=== PATIENT | male | born 1965 | race Caucasian/White ===

== ENCOUNTER 2023-12-20 19:45 | Inpatient (IN) | payer MEDICAID, OTHER ==
[~2023-12-20] VITALS: Ht 174 cm; Wt 71.0 kg
[2023-12-20 20:15] VITALS: PULSE 103; RESP 17; O2SAT 95
--- NOTE | 2023-12-20 20:18 | ED.PDOC ---
Altered Mental Status HPI Comments 58-year-old male who came to ER via EMS for altered level of consciousness. Per EMS, patient is homeless and was picked up station, with an initial call for abdominal pain. As paramedics came, patient complaining of abdominal pain, and confided that he stuck a piece of stick up his ass with a condom inserted. States he did it for pleasure. On the way to the ER, patient started acting confused and disoriented, started talking gibberish. No further information could be taken from him at this time. Chief Complaint: ALOC Time Seen by MD: 20:17 Reviewed Notes: Nurses Notes Allergies: Coded Allergies: NO KNOWN ALLERGIES (Unverified , 12/21/23) Information Source: Patient Mode of Arrival: EMS Severity: Unable to Care for Self Timing: Hours Duration: Since onset Prehospital treatment: None Quality: Decreased Alertness, Change in Behavior, Confusion Past Medical History PAST MEDICAL HISTORY: Pt Confused Surgical History: Pt Confused Family History Family History: Pt Confused Social History Smoker: Pt Confused Alcohol: Pt Confused Drugs: Pt Confused Lives In: Pt Confused Unable to Obtain due to: Altered Mental Status Physical Exam General Appearance: No Apparent Distress, Normal HEENT: Normal ENT Inspection, Pharynx Normal, TMs Normal Neck: Full Range of Motion, Non-Tender, Normal, Normal Inspection Respiratory: Chest Non-Tender, Lungs Clear, No Accessory Muscle Use, No Respiratory Distress, Normal Breath Sounds Cardiovascular: No Edema, No JVD, No Murmur, No Gallop, Normal Peripheral Pulses, Regular Rate/Rhythm Breast Exam: Deferred Gastrointestinal: No Organomegaly, Non Tender, No Pulsatile Mass, Normal Bowel Sounds, Soft Genitalia: Deferred Pelvic: Deferred Rectal: Deferred Extremities: No calf tenderness, Normal capillary refill, Normal inspection, Normal range of motion, Non-tender, No pedal edema Musculoskeletal : Apperance: Normal Neurologic: Alert, coconut cooker II-XII nml as Tested, No Motor Deficits, Normal Affect, Normal Mood, No Sensory Deficits Cerebellar Function: Normal Reflexes: Normal Skin: Dry, Normal Color, Warm Lymphatic: No Adenopathy Was a procedure done? Was a procedure done?: No Differential Diagnosis (ALOC) Differential Diagnosis: Encephalopathy, Drug Overdose, ETOH Intoxication X-Ray, Labs, Meds, VS Vital Signs Date Time Temp Pulse Resp B/P (MAP) Pulse Ox O2 Delivery O2 Flow Rate FiO2 12/21/23 01:00 87 18 133/90 (104) 96 12/20/23 23:00 97 12 139/95 (110) 96 12/20/23 21:00 112 10 147/91 (109) 93 12/20/23 20:15 97.9 103 17 143/92 (109) 95 97.9 12/20/23 20:15 103 17 95 Room Air* 0 21 12/20/23 20:01 97.9 103 18 149/96 (113) 98 12/20/23 19:46 113 Lab Test 12/21/23 00:10 12/20/23 23:10 12/20/23 22:37 Range/Units Troponin I High Sensitivity 10 10 </=54 ng/L White Blood Count 6.4 4.4-10.8 10^3/uL Red Blood Count 4.28 L 4.5-5.90 10^6/uL Hemoglobin 13.3 L 13.5-17.5 g/dL Hematocrit 38.5 L 41.0-53.0 % Mean Corpuscular Volume 89.9 80.0-100.0 fL Mean Corpuscular Hemoglobin 31.1 28.0-32.0 pg Mean Corpuscular Hemoglobin Concent 34.6 32.0-36.0 g/dL Red Cell Distribution Width 14.5 H 11.8-14.3 % Platelet Count 297 140-450 10^3/uL Mean Platelet Volume 7.4 6.9-10.8 fL Neutrophils (%) (Auto) 66.7 37.0-80.0 % Lymphocytes (%) (Auto) 20.0 10.0-50.0 % Monocytes (%) (Auto) 10.8 0.0-12.0 % Eosinophils (%) (Auto) 1.5 0.0-7.0 % Basophils (%) (Auto) 1.0 0.0-2.0 % Neutrophils # (Auto) 4.2 1.6-8.6 10 ^3/uL Lymphocytes # (Auto) 1.3 0.4-5.4 10 ^3/uL Monocytes # (Auto) 0.7 0-1.3 10 ^3/uL Eosinophils # (Auto) 0.1 0-0.8 10 ^3/uL Basophils # (Auto) 0.1 0-0.2 10 ^3/uL Nucleated Red Blood Cells 0.1 % Sodium Level 142 136-145 mmol/L Potassium Level 3.1 L 3.5-5.1 mmol/L Chloride Level 106 98-107 mmol/L Carbon Dioxide Level 31 20-31 mmol/L Anion Gap 5 5-15 Blood Urea Nitrogen 8 L 9-23 mg/dL Creatinine 0.90 0.700-1.30 mg/dL Glomerular Filtration Rate Calc 100 >90 mL/min BUN/Creatinine Ratio 8.9 L 10.0-20.0 Serum Glucose 117 H 74-106 mg/dL Calcium Level 9.6 8.7-10.4 mg/dL Plasma/Serum Blood Alcohol < 3.0 <10 mg/dL Urine Color Light-orange Yellow Urine Clarity Ex.turbid Clear Urine pH 7.0 5.0-9.0 Urine Specific [place] 1.017 1.001-1.035 Urine Protein Trace H Negative Urine Ketones Negative Negative Urine Blood Negative Negative /uL Urine Nitrite Negative Negative Urine Bilirubin Negative Negative Urine Urobilinogen 2 H Negative mg/dL Urine Leukocyte Esterase 1+ Negative /uL Urine RBC None seen 0 - 3 /hpf Urine WBC 22 0 - 3 /hpf Urine Squamous Epithelial Cells None seen <5 /hpf Urine Amorphous Crystals Few None Seen /hpf Urine Bacteria None seen None Seen /hpf Urine Mucus Few None Seen Urine Yeast (Budding) Many None Seen /hpf Urine Glucose Normal Normal mg/dL Urine Opiates Screen Neg NEGATIVE Urine Fentanyl Screen Neg NEGATIVE Urine Barbiturates Screen Neg NEGATIVE Urine Phencyclidine Screen Neg NEGATIVE Urine Amphetamines Screen Pos NEGATIVE Urine Benzodiazepines Screen Neg NEGATIVE Urine Cocaine Screen Neg NEGATIVE Urine Cannabinoids Screen Pos NEGATIVE Current Medications Medications (Trade) Dose Ordered Sig/Niru Route Start Time Stop Time Status Last Admin Midazolam HCl (Versed Injection) 10 mg ONCE ONCE IM 12/20/23 23:15 12/20/23 23:16 DC 12/20/23 23:29 Midazolam HCl (Versed Injection) 10 mg ONCE ONCE IV 12/21/23 01:15 12/21/23 01:38 DC 12/21/23 01:16 PROCEDURE(s): ABPLIV - CT AB PEL WITH IV CON ONLY CLINICAL INDICATION: ;ams DIREAS;Reason for Exam: Stretcher;Stretcher;Modes of Transportation DITRANS;How is patient transported? ;y OECTB;Has the patient had a recent BUN/CREAT? ;N OECTC;Has the patient had IV contrast within last 48 hours?; OECTN;Has patient been NPO for at least 4 hours? COMPARISON: None. CONTRAST USED: None. TECHNIQUE: A post contrast CT study of the abdomen and pelvis is performed after administration of intravenous contrast medium. The examination was performed with [address] scan done according to ALARA (As Low as Reasonably Achievable). Multiplanar reconstructions were obtained. FINDINGS: Limited evaluation due to motion artifacts. CT ABDOMEN: Visualized lower thorax: The evaluation of lung bases demonstrates no focal infiltrates or pleural effusion. Herniation of omental fat into the right lower posterior hemithoracic region through a defect of approximate size 10 mm in the right dome of diaphragm posteriorly, suggestive of diaphragmatic hernia. Liver: The liver is enlarged in size with the right lobe measuring approximately 16.6 cm. The portal venous radicles are normal. There is no intrahepatic biliary radicle dilatation. Hypodense lesion of approximate size 9 mm in the left lobe of liver. Advised further evaluation with triphasic MRI abdomen with contrast. Gallbladder: The gallbladder is normal and reveals no intrinsic abnormality. The common bile duct is not dilated. Pancreas: The pancreas is normal in size and shape. No focal lesion is seen within. The peripancreatic fat planes are normal. Spleen: The spleen is normal in size and does not show any focal abnormality. Retroperitoneum: Both adrenal glands are normal in size and morphology. There is no significant retroperitoneal lymphadenopathy. The kidneys are normal in size with no hydronephrosis or renal calculi. Vessels: Calcific atherosclerotic aorto-iliac plaques noted. Otherwise, the aorta, IVC and mesenteric vessels appear unremarkable. Stomach and bowel: Small fat filled umbilical hernia. The bowel loops are unremarkable. There is no ascites. Skeletal system: Grade 1 retrolisthesis of L4 over L5 vertebra without spondylolysis. Mild degenerative changes in the visualized thoracolumbar vertebrae. The pelvic bones are unremarkable. CT PELVIS: Appendix: The appendix is unremarkable in appearance. Colon: The ascending, transverse, descending, sigmoid colon and rectum are unremarkable. Urinary bladder: The urinary bladder is overdistended. Pelvic organs: Midline defect noted in the prostate, likely post TURP defect. Please correlate with operative history. No significant pelvic lymphadenopathy is identified. No abnormal fluid collection is seen. IMPRESSION: Limited evaluation due to motion artifacts. Overdistended urinary bladder. No abdominal mass or adenopathy. No ascites. No free air or inflammatory changes. Chronic and / or ancillary findings as described above. Time of 1ST Reevaluation: 20:15 Reevaluation 1ST: Unchanged Patient Education/Counseling: Diagnosis, Treatment, Other (Confused and disoriented) Family Education/Counseling: No Family Present Departure 1 Departure Time of Disposition: 02:06 (Patient with altered mental status likely secondary to methamphetamine abuse. Patient with a acute urinary retention with 1 and 1.3 L out upon French catheter placement. Patient also with a liver mass and radiology recommends MRI for further evaluation. We will admit patient for further workup) Impression: Primary Impression: Toxic encephalopathy Qualified Codes: G92.9 - Unspecified toxic encephalopathy Additional Impressions: Acute urinary retention Liver mass Disposition: ADMITTED INPATIENT Admit to: Med Surg Condition: Serious Critical Care Note Critical Care Time?: Yes (35 min-critical care time only) Critical care comment: Altered mental status Authorized and Performed by: Nuris Zazueta MD Total critical care time: Approximately 38 minutes Due to a high probability of clinically significant, life threatening deterioration, the patient required my highest level of preparedness to intervene emergently and I personally spent this critical care time directly and personally managing the patient. This critical care time included obtaining a history; examining the patient; pulse oximetry; ordering and review of studies; arranging urgent treatment with development of a management plan; evaluation of patient's response to treatment; frequent reassessment; and, discussions with other providers. This critical care time was performed to assess and manage the high probability of imminent, life-threatening deterioration that could result in multi-organ failure. It was exclusive of separately billable procedures and treating other patients and teaching time. Please see my other sections and the rest of the note for further information on patient assessment and treatment. Stability Stability form required: No Heart Score Heart Score: Heart Score Response (Comments) Value History N/A 0 EKG N/A 0 Age N/A 0 Risk Factors N/A 0 Troponin N/A 0 Total 0 I personally scribed for NURIS ZAZUETA MD ([email or web address]) on 12/20/23 at 20:18. Electronically submitted by Michi Cummings ([facility]). I personally scribed for NURIS ZAZUETA MD ([email or web address]) on 12/21/23 at 01:51. Electronically submitted by Michi Cummings ([email or web address]). NURIS ZAZUETA MD Dec 20, 2023 20:18
--- NOTE | 2023-12-20 21:34 | DVH ---
XY KUB ABDOMEN SINGLE VIEW HISTORY: foreign body TECHNICAL DATA: 1 view of the abdomen. COMPARISON: None FINDINGS: Patchy gas is identified within nondistended small bowel. There are no dilated small bowel loops. Th ere is no abdominal mass effect. The renal and liver shadows are not enlarged. No abnormal calcifica tions are demonstrated. IMPRESSION: Moderate to severe colonic fecal burden. No radiodense foreign body seen.
[2023-12-20 22:42] LABS: Urine Bacteria None Seen /hpf (None Seen)
[2023-12-20 22:55] LABS: Urine Amorphous Crystal FEW /hpf (None Seen); Urine Blood Negative /uL (Negative); Urine Budding Yeast MANY /hpf (None Seen); Urine Clarity Ex.Turbid (Clear); Urine Color Light-Orange (Yellow); Urine Mucus FEW (None Seen); Urine Protein, UAD TRACE (Negative); Urine Specific Gravity 1.017 (1.001-1.035); Urine Urobilinogen 2 mg/dL (Negative); Urine WBC 22 /hpf (0 - 3)
[2023-12-20 23:17] LABS: Amphetamine Screen, Urine Pos (NEGATIVE); Barbiturate Scree,Urine Neg (NEGATIVE); Benzodiazephine Screen, Urine Neg (NEGATIVE); Cannabinoid Screen, Urine Pos (NEGATIVE); Cocaine Screen, Urine Neg (NEGATIVE); Opiate Scree,Urine Neg (NEGATIVE); Phencyclidine Screen, Urine Neg (NEGATIVE)
[2023-12-20] MEDS: MIDAZOLAM HCL 5 MG/ML-1ML VIAL IM ONE (23:29)
[2023-12-20 23:30] LABS: Basophils # (auto) 0.1 10 ^3/uL (0-0.2); Eosinophils # (auto) 0.1 10 ^3/uL (0-0.8); Eosinophils % (auto) 1.5 % (0.0-7.0); Hematocrit 38.5 % (41.0-53.0); Hemoglobin 13.3 g/dL (13.5-17.5); Lymphocytes # (auto) 1.3 10 ^3/uL (0.4-5.4); Mean Corpuscular Hemoglobin 31.1 pg (28.0-32.0); Mean Corpuscular Hgb Conc. 34.6 g/dL (32.0-36.0); Mean Corpuscular Volume 89.9 fL (80.0-100.0); Monocytes # (auto) 0.7 10 ^3/uL (0-1.3); Monocytes % (auto) 10.8 % (0.0-12.0); Neutrophils # (auto) 4.2 10 ^3/uL (1.6-8.6); Neutrophils % (auto) 66.7 % (37.0-80.0); Nucleated Red Blood Cells % 0.1 %; Platelet Count (auto) 297 10^3/uL (140-450); Red Blood Cells 4.28 10^6/uL (4.5-5.90); Red Cell Distribution Width 14.5 % (11.8-14.3); White Blood Cell 6.4 10^3/uL (4.4-10.8)
[2023-12-20 23:47] LABS: Chloride 106 mmol/L (98-107); Potassium 3.1 mmol/L (3.5-5.1); Sodium 142 mmol/L (136-145)
[2023-12-20 23:48] LABS: Anion Gap 5 (5-15); Carbon Dioxide 31 mmol/L (20-31)
[2023-12-20 23:49] LABS: Calcium 9.6 mg/dL (8.7-10.4)
[2023-12-20 23:54] LABS: BUN/Creatinine Ratio 8.9 (10.0-20.0); Blood Alcohol < 3.0 mg/dL (<10); Blood Urea Nitrogen 8 mg/dL (9-23); Glucose 117 mg/dL (74-106)
[2023-12-21] MEDS: IOHEXOL 300 MG/ML 100ML BOTTLE IJ ONE (00:32)
[2023-12-21] MEDS: MIDAZOLAM HCL 5 MG/ML-1ML VIAL IV ONE (01:16)
[2023-12-21] MEDS: VERAPAMIL 2.5MG/ML INJ 2ML VIAL IV ONE (01:22)
[2023-12-21] MEDS: MIDAZOLAM HCL 5 MG/ML-1ML VIAL ONE (01:23)
[2023-12-21] MEDS: KETAMINE 50mg/ML 10ml Vial (500mg/10ml) IV ONE (01:39)
--- NOTE | 2023-12-21 01:40 | DVH ---
Examination: ABPLIV CLINICAL INDICATION: ;ams DIREAS;Reason for Exam: Stretcher;Stretcher;Modes of Transportation DITRANS;How is patient trans ported? ;y OECTB;Has the patient had a recent BUN/CREAT? ;N OECTC;Has the patient had IV contrast wit hin last 48 hours?; OECTN;Has patient been NPO for at least 4 hours? COMPARISON: None. CONTRAST USED: None. TECHNIQUE: A post contrast CT study of the abdomen and pelvis is performed after administration of i ntravenous contrast medium. The examination was performed with [address] scan done accor ding to ALARA (As Low as Reasonably Achievable). Multiplanar reconstructions were obtained. FINDINGS: Limited evaluation due to motion artifacts. CT ABDOMEN: Visualized lower thorax: The evaluation of lung bases demonstrates no focal infiltrates or pleural effusion. Herniation of omental fat into the right lower posterior hemithoracic region through a defect of appr oximate size 10 mm in the right dome of diaphragm posteriorly, suggestive of diaphragmatic hernia. Liver: The liver is enlarged in size with the right lobe measuring approximately 16.6 cm. The portal venous radicles are normal. There is no intrahepatic biliary radicle dilatation. Hypodense lesion of approximate size 9 mm in the left lobe of liver. Advised further evaluation with triphasic MRI abdomen with contrast. Gallbladder: The gallbladder is normal and reveals no intrinsic abnormality. The common bile duct is not dilated. Pancreas: The pancreas is normal in size and shape. No focal lesion is seen within. The peripancreatic fat planes are normal. Spleen: The spleen is normal in size and does not show any focal abnormality. Retroperitoneum: Both adrenal glands are normal in size and morphology. There is no significant retroperitoneal lymphadenopathy. The kidneys are normal in size with no hydronephrosis or renal calculi. Vessels: Calcific atherosclerotic aorto-iliac plaques noted. Otherwise, the aorta, IVC and mesenteric vessels appear unremarkable. Stomach and bowel: Small fat filled umbilical hernia. The bowel loops are unremarkable. There is no ascites. Skeletal system: Grade 1 retrolisthesis of L4 over L5 vertebra without spondylolysis. Mild degenerative changes in the visualized thoracolumbar vertebrae. The pelvic bones are unremarkable. CT PELVIS: Appendix: The appendix is unremarkable in appearance. Colon: The ascending, transverse, descending, sigmoid colon and rectum are unremarkable. Urinary bladder: The urinary bladder is overdistended. Pelvic organs: Midline defect noted in the prostate, likely post TURP defect. Please correlate with operative histor y. No significant pelvic lymphadenopathy is identified. No abnormal fluid collection is seen. IMPRESSION: Limited evaluation due to motion artifacts. Overdistended urinary bladder. No abdominal mass or adenopathy. No ascites. No free air or inflammatory changes. Chronic and / or ancillary findings as described above. Electronically Signed 12/21/2023 01:32 Natalie Kat
--- NOTE | 2023-12-21 01:41 | DVH ---
Examination: HWOCT CLINICAL INDICATION: ;ams DIREAS;Reason for Exam: Stretcher;Stretcher;Modes of Transportation DITRANS;How is patient trans ported? COMPARISON: None. CONTRAST USED: None. TECHNIQUE: The examination was performed obtaining 4 mm slices without contrast. CT scan was done ac cording to ALARA (As Low as Reasonably Achievable). Multiplanar reconstructions were obtained. This C T scan was performed using dose optimization techniques as appropriate to the performed exam includin g one or more of the following: automated exposure control, adjustment of the kV and/or mA according to patient size, use of iterative reconstruction technique. FINDINGS: SUPRATENTORIAL BRAIN: Cerebral Hemispheres: There is no midline shift or mass effect, intra or extra-axial fluid collections or hemorrhage. Prominent sulcal - gyral pattern and cisternal spaces in both cerebral hemispheres suggestive of cere bral atrophy, likely age-related. Periventricular White Matter/Basal Ganglia: No abnormal areas of altered attenuation within the periventricular white matter or basal ganglia. POSTERIOR FOSSA: The brainstem is unremarkable. Prominent cerebellar folia suggestive of cerebellar atrophy, likely age-related. Prominent cisterna magna noted, normal variant. VENTRICULAR SYSTEM: The ventricular system is normal in size. Patent cavum septum pellucidum noted. There is no evidence of hydrocephalus or transependymal flow of cerebrospinal fluid. SKULL BASE AND PARASELLAR REGION: The skull base is normal with no parasellar masses or abnormalities identified. Empty sella seen. CALVARIUM AND SCALP REGION: No abnormality is seen. PARANASAL SINUSES: No significant inflammatory changes are identified in the visualized paranasal sinuses. IMPRESSION: No evidence of acute large vessel territorial ischemic infarction or intraparenchymal hematoma in cur rent study. Cerebral and cerebellar atrophy, likely age-related. Chronic and / or ancillary findings as described above. Advise further evaluation with MRI brain without contrast if clinically indicated. Electronically Signed 12/21/2023 01:32 Natalie Kat
--- NOTE | 2023-12-21 02:17 | ECG ---
[facility] Test Date: 2023-12-20 Test Time: 19:46:00 Pat Name: JERRY TORRES Department: ED Room: 0215T Gender: M [place] Attendant: MS : 1965 Requested By: NURIS ZAZUETA Order Number: [id number] Reading MD: Frank Parks Measurements Intervals [place] Rate: 113 P: 0 [place]: 0 QRS: -105 QRSD: 140 T: 59 QT: 363 QTc: 498 Interpretive Statements Sinus tachycardia Right bundle branch block Electronically Signed On 01-01-2024 12:38:21 PST by Frank Parks Please click the below link to view image of tracing.
--- NOTE | 2023-12-21 02:41 | DVH ---
Examination: CXRP Clinical Indication: ams Comparison: None. Technique: Frontal radiograph of the chest was obtained. Findings: Patient is in rotation. Prominent bronchovascular markings in both lungs. Otherwise, lungs are clear and well expanded with no pulmonary infiltrate or pleural effusion. There is no pneumothorax. The cardiomediastinal silhouette is within normal limits. No acute osseous abnormality is seen. Impression: No acute cardiopulmonary disease is seen. Electronically Signed 12/21/2023 02:33 Natalie Kat
[2023-12-21] MEDS ORDERED: MORPHINE SULFATE INJ 2 MG/ml SYRG IV PRN (04:00)
[2023-12-21] MEDS ORDERED: NITROGLYCERIN 0.4 MG SL TAB SL PRN (04:00)
[2023-12-21] MEDS: POTASSIUM CHL 20 Meq TABLET PO ONE (04:20)
--- NOTE | 2023-12-21 04:23 | DVHHP2 ---
History of Present Illness Reason for Visit: Toxic encephalopathy History of Present Illness The patient is a 58-year-old male with unknown past medical history given mental status who presented to [facility] ED for evaluation of altered level of consciousness. As reported by EMS, patient is homeless and was picked up at station with initial call for abdominal pain. When EMS arrived on the scene, patient complaint of abdominal pain and confided that he stuck a piece of stick up his ass with a condom inserted for pleasure. Patient was seen and evaluated in the ED, laboratory data shows WBC 6.4, platelets 297, sodium 142, potassium 3.1, BUN 8, creatinine 0.90, glucose 117, troponin 10, blood pressure 112/73, heart rate 72, temperature 97.9 F, O2 saturation 97% on room air, toxicology reports positive for amphetamine and marijuana. Urinalysis positive for urinary tract infection. CT of the abdomen/pelvis revealing overdistended urinary bladder, no abdominal adenopathy, no ascites. KUB revealing moderate to severe colonic fecal burden, no radiodense foreign body seen. Patient was started on IV antibiotic regimen Rocephin, please see medication orders section in the computer. On my assessment, patient denied chest pain, no headache, no dizziness, no diaphoresis, no shortness of breath, no nausea, no vomiting, no fever, no chills. Patient was admitted for further evaluation and medical management. Past Medical History No past medical history on file Past Surgical History No past surgical history on file Family History Reviewed, noncontributory to the management of this case. Past Social History The patient is homeless, no history of smoking or alcohol on file, toxicology reports positive for amphetamine and marijuana. Review of Systems Constitutional: Yes: Weakness; No: Fever, Chills, Sweats, Malaise, Other Eyes: No: Pain, Vision change, Conjunctivae inflammation, Eyelid inflammation, Other, Redness ENT: No: Ear pain, Ear discharge, Nose pain, Nose discharge, Nose congestion, Mouth pain, Mouth swelling, Throat pain, Throat swelling, Other Respiratory: No: Cough, Dry, Shortness of breath, SOB with excertion, Wheezing, Hemoptysis, Pleuritic Pain, Sputum, Wheezing, Other Cardiovascular: No: Chest Pain, Palpitations, Orthopnea, Paroxysmal Noc. Dyspnea, Edema, Lt Headedness, Other Gastrointestinal: Abdominal Pain; No: Nausea, Vomiting, Diarrhea, Constipation, Melena, Hematochezia, Other Genitourinary: No Dysuria, No Frequency, No Incontinence, No Hematuria; Retention; No Other Musculoskeletal: No: other, neck pain, shoulder pain, arm pain, back pain, hand pain, leg pain, foot pain Skin: No: Rash, Lesions, Jaundice, Bruising, Other Neurological: No: Weakness, Numbness, Incoordination, Change in speech, Confusion, Seizures, Other Allergies: Coded Allergies: NO KNOWN ALLERGIES (Unverified , 12/21/23) Exam Vital Signs Vital Signs Date Time Temp Pulse Resp B/P (MAP) Pulse Ox O2 Delivery O2 Flow Rate FiO2 12/21/23 03:00 71 13 112/73 (86) 97 12/20/23 20:15 97.9 97.9 12/20/23 20:15 Room Air* 0 21 General Appearance: Alert, Cooperative, No acute distress, Other (Oriented x2) HEENT: Atraumatic, PERRLA, EOMI, Mucous membr. moist/pink Respiratory: Clear to auscultation, Normal air movement Cardiovascular: Regular rate, Normal S1, Normal S2, No murmurs Abdominal: Normal bowel sounds, Soft, No tenderness, No hepatospenomegaly, No masses Extremities: No clubbing, No cyanosis, No edema, Normal pulses, No tenderness/swelling Skin: No rashes, No breakdown, No significant lesion Neuro: Normal speech, Normal tone, Sensation intact, Cranial nerves 3-12 NL, Reflexes 2+, Other (Generalized weakness) Psych/Mental Status: Mood NL, Other (Altered mental status) Labs/Xrays Labs Test 12/21/23 02:00 12/20/23 23:10 12/20/23 22:37 Range/Units Troponin I High Sensitivity 11 </=54 ng/L White Blood Count 6.4 4.4-10.8 10^3/uL Red Blood Count 4.28 L 4.5-5.90 10^6/uL Hemoglobin 13.3 L 13.5-17.5 g/dL Hematocrit 38.5 L 41.0-53.0 % Mean Corpuscular Volume 89.9 80.0-100.0 fL Mean Corpuscular Hemoglobin 31.1 28.0-32.0 pg Mean Corpuscular Hemoglobin Concent 34.6 32.0-36.0 g/dL Red Cell Distribution Width 14.5 H 11.8-14.3 % Platelet Count 297 140-450 10^3/uL Mean Platelet Volume 7.4 6.9-10.8 fL Neutrophils (%) (Auto) 66.7 37.0-80.0 % Lymphocytes (%) (Auto) 20.0 10.0-50.0 % Monocytes (%) (Auto) 10.8 0.0-12.0 % Eosinophils (%) (Auto) 1.5 0.0-7.0 % Basophils (%) (Auto) 1.0 0.0-2.0 % Neutrophils # (Auto) 4.2 1.6-8.6 10 ^3/uL Lymphocytes # (Auto) 1.3 0.4-5.4 10 ^3/uL Monocytes # (Auto) 0.7 0-1.3 10 ^3/uL Eosinophils # (Auto) 0.1 0-0.8 10 ^3/uL Basophils # (Auto) 0.1 0-0.2 10 ^3/uL Nucleated Red Blood Cells 0.1 % Sodium Level 142 136-145 mmol/L Potassium Level 3.1 L 3.5-5.1 mmol/L Chloride Level 106 98-107 mmol/L Carbon Dioxide Level 31 20-31 mmol/L Anion Gap 5 5-15 Blood Urea Nitrogen 8 L 9-23 mg/dL Creatinine 0.90 0.700-1.30 mg/dL Glomerular Filtration Rate Calc 100 >90 mL/min BUN/Creatinine Ratio 8.9 L 10.0-20.0 Serum Glucose 117 H 74-106 mg/dL Calcium Level 9.6 8.7-10.4 mg/dL Plasma/Serum Blood Alcohol < 3.0 <10 mg/dL Urine Color Light-orange Yellow Urine Clarity Ex.turbid Clear Urine pH 7.0 5.0-9.0 Urine Specific [place] 1.017 1.001-1.035 Urine Protein Trace H Negative Urine Ketones Negative Negative Urine Blood Negative Negative /uL Urine Nitrite Negative Negative Urine Bilirubin Negative Negative Urine Urobilinogen 2 H Negative mg/dL Urine Leukocyte Esterase 1+ Negative /uL Urine RBC None seen 0 - 3 /hpf Urine WBC 22 0 - 3 /hpf Urine Squamous Epithelial Cells None seen <5 /hpf Urine Amorphous Crystals Few None Seen /hpf Urine Bacteria None seen None Seen /hpf Urine Mucus Few None Seen Urine Yeast (Budding) Many None Seen /hpf Urine Glucose Normal Normal mg/dL Urine Opiates Screen Neg NEGATIVE Urine Fentanyl Screen Neg NEGATIVE Urine Barbiturates Screen Neg NEGATIVE Urine Phencyclidine Screen Neg NEGATIVE Urine Amphetamines Screen Pos NEGATIVE Urine Benzodiazepines Screen Neg NEGATIVE Urine Cocaine Screen Neg NEGATIVE Urine Cannabinoids Screen Pos NEGATIVE PATIENT: JERRY TORRES ACCT: [id number] UNIT: [id number] : 1965 LOC: ER ROOM / BED: / AGE / SEX: 58 / M ADM STATUS: REG ER SERVICE 2255 ORDERING PHYSICIAN: NURIS ZAZUETA MD PROCEDURE(s): HWOCT - HEAD WITHOUT CONTRAST REASON: ams ORDER NUMBER(s): [id number], ACCESSION NUMBER(s): [id number] Examination: HWOCT CLINICAL INDICATION: ;ams DIREAS;Reason for Exam: Stretcher;Stretcher;Modes of Transportation DITRANS;How is patient transported? COMPARISON: None. CONTRAST USED: None. TECHNIQUE: The examination was performed obtaining 4 mm slices without contrast. CT scan was done according to ALARA (As Low as Reasonably Achievable). Multiplanar reconstructions were obtained. This CT scan was performed using dose optimization techniques as appropriate to the performed exam including one or more of the following: automated exposure control, adjustment of the kV and/or mA according to patient size, use of iterative reconstruction technique. FINDINGS: SUPRATENTORIAL BRAIN: Cerebral Hemispheres: There is no midline shift or mass effect, intra or extra-axial fluid collections or hemorrhage. Prominent sulcal - gyral pattern and cisternal spaces in both cerebral hem ispheres suggestive of cerebral atrophy, likely age-related. Periventricular White Matter/Basal Ganglia: No abnormal areas of altered attenuation within the periventricular white matter or basal ganglia. POSTERIOR FOSSA: The brainstem is unremarkable. Prominent cerebellar folia suggestive of cerebellar atrophy, likely age-related. Prominent cisterna magna noted, normal variant. VENTRICULAR SYSTEM: The ventricular system is normal in size. Patent cavum septum pellucidum noted. There is no evidence of hydrocephalus or transependymal flow of cerebrospinal fluid. SKULL BASE AND PARASELLAR REGION: The skull base is normal with no parasellar masses or abnormalities identified. Empty sella seen. CALVARIUM AND SCALP REGION: No abnormality is seen. PARANASAL SINUSES: No significant inflammatory changes are identified in the visualized paranasal sinuses. IMPRESSION: No evidence of acute large vessel territorial ischemic infarction or intraparenchymal hematoma in current study. Cerebral and cerebellar atrophy, likely age-related. Chronic and / or ancillary findings as described above. Advise further evaluation with MRI brain without contrast if clinically indicated. ORDERING PHYSICIAN: NURIS ZAZUETA MD PROCEDURE(s): ABPLIV - CT AB PEL WITH IV CON ONLY REASON: ams ORDER NUMBER(s): [id number], ACCESSION NUMBER(s): [id number] Examination: ABPLIV CLINICAL INDICATION: ;ams DIREAS;Reason for Exam: Stretcher;Stretcher;Modes of Transportation DITRANS;How is patient transported? ;y OECTB;Has the patient had a recent BUN/CREAT? ;N OECTC;Has the patient had IV contrast within last 48 hours?; OECTN;Has patient been NPO for at least 4 hours? COMPARISON: None. CONTRAST USED: None. TECHNIQUE: A post contrast CT study of the abdomen and pelvis is performed after administration of intravenous contrast medium. The examination was performed with [address] scan done according to ALARA (As Low as Reasonably Achievable). Multiplanar reconstructions were obtained. FINDINGS: Limited evaluation due to motion artifacts. CT ABDOMEN: Visualized lower thorax: The evaluation of lung bases demonstrates no focal infiltrates or pleural effusion. Herniation of omental fat into the right lower posterior hemithoracic region through a defect of approximate size 10 mm in the right dome of diaphragm posteriorly, suggestive of diaphragmatic hernia. Liver: The liver is enlarged in size with the right lobe measuring approximately 16.6 cm. The portal venous radicles are normal. There is no intrahepatic biliary radicle dilatation. Hypodense lesion of approximate size 9 mm in the left lobe of liver. Advised further evaluation with triphasic MRI abdomen with contrast. Gallbladder: The gallbladder is normal and reveals no intrinsic abnormality. The common bile duct is not dilated. Pancreas: The pancreas is normal in size and shape. No focal lesion is seen within. The peripancreatic fat planes are normal. Spleen: The spleen is normal in size and does not show any focal abnormality. Retroperitoneum: Both adrenal glands are normal in size and morphology. There is no significant retroperitoneal lymphadenopathy. The kidneys are normal in size with no hydronephrosis or renal calculi. Vessels: Calcific atherosclerotic aorto-iliac plaques noted. Otherwise, the aorta, IVC and mesenteric vessels appear unremarkable. Stomach and bowel: Small fat filled umbilical hernia. The bowel loops are unremarkable. There is no ascites. Skeletal system: Grade 1 retrolisthesis of L4 over L5 vertebra without spondylolysis. Mild degenerative changes in the visualized thoracolumbar vertebrae. The pelvic bones are unremarkable. CT PELVIS: Appendix: The appendix is unremarkable in appearance. Colon: The ascending, transverse, descending, sigmoid colon and rectum are unremarkable. Urinary bladder: The urinary bladder is overdistended. Pelvic organs: Midline defect noted in the prostate, likely post TURP defect. Please correlate with operative history. No significant pelvic lymphadenopathy is identified. No abnormal fluid collection is seen. IMPRESSION: Limited evaluation due to motion artifacts. Overdistended urinary bladder. No abdominal mass or adenopathy. No ascites. No free air or inflammatory changes. Chronic and/or ancillary findings as described above. ORDERING PHYSICIAN: NURIS ZAZUETA MD PROCEDURE(s): CXRP - CHEST PORTABLE REASON: ams ORDER NUMBER(s): [id number], ACCESSION NUMBER(s): [id number] Examination: CXRP Clinical Indication: ams Comparison: None. Technique: Frontal radiograph of the chest was obtained. Findings: Patient is in rotation. Prominent bronchovascular markings in both lungs. Otherwise, lungs are clear and well expanded with no pulmonary infiltrate or pleural effusion. There is no pneumothorax. The cardiomediastinal silhouette is within normal limits. No acute osseous abnormality is seen. Impression: No acute cardiopulmonary disease is seen. ORDERING PHYSICIAN: NURIS ZAZUETA MD PROCEDURE(s): KUB - KUB ABDOMEN SINGLE VIEW REASON: foreign body ORDER NUMBER(s): [id number], ACCESSION NUMBER(s): [id number] KUB ABDOMEN SINGLE VIEW HISTORY: foreign body TECHNICAL DATA: 1 view of the abdomen. COMPARISON: None FINDINGS: Patchy gas is identified within nondistended small bowel. There are no dilated small bowel loops. There is no abdominal mass effect. The renal and liver shadows are not enlarged. No abnormal calcifications are demonstrated. IMPRESSION: Moderate to severe colonic fecal burden. No radiodense foreign body seen. Assessment/Plan Assessment/Plan Toxic encephalopathy Unspecified toxic encephalopathy Liver mass Homelessness Polydrug abuse Hypokalemia Urinary tract infection Acute urinary retention Generalized weakness Plan 1. Admit to telemetry unit 2. Breathing treatment 3. Pain control management 4. IV antibiotic management 5. Management of fluids and electrolytes 6. Consultation for hospitalist 7. Diagnostic test abdomen/pelvis CT 8. DVT prophylaxis-on SCDs 9. Repeat labs CBC, CMP in a.m. 10. Home medication reviewed and reconciled 11. Continue with current medical management 12. Treatment plan discussed with patient and RN. Patient verbalized understanding. Plan discussed with: Patient, Other (RN) My Orders Orders - DEANDRA KILPATRICK DNP Procedure Category Date Status Time Complete Blood Count LAB 12/21/23 Verified 04:00 Comprehensive LAB 12/21/23 Verified Metabolic Panel 04:00 Potassium Er Tablet PHA 12/21/23 Verified (Klor-Con Tablet) 04:00 Admit ADMIT 12/21/23 Verified 03:55 Allergies [facility] 12/21/23 Verified 03:55 Code Status CODE 12/21/23 Verified 03:55 Sodium Chloride Lock [facility] 12/21/23 Verified (Saline Lock Ns) 06:00 Oxygen Per Hour RT 12/21/23 Verified 03:55 Hydrocodone-Acet [facility] 12/21/23 Verified 5/325mg Tab ([place] 04:00 Ondansetron Hcl PHA 12/21/23 Verified (Zofran) 04:00 Docusate Sodium [facility] 12/21/23 Verified Capsule (Colace 04:00 Fall Risk Precautions [facility] 12/21/[address] 03:55 Complete Blood Count LAB 12/22/23 Verified 04:00 Comprehensive LAB 12/22/23 Verified Metabolic Panel 04:00 Cardiac DIET 12/21/23 Verified Diet-2gna,Lofat,Lochol Breakfast Condition: Serious [facility] 12/21/23 Verified 03:55 Acetaminophen Tablet [facility] 12/21/23 Verified (Tylenol Tablet) 04:00 Sequential [facility] 12/21/23 Verified Compression Device Nitroglycerin [facility] 12/21/23 Verified Sublingual (Ntrostat 04:00 Morphine Sulfate [facility] 12/21/23 Verified Injection 04:00 Notify Of Changes [facility] 12/21/23 Verified From Base 03:55 [employer] Operations Manager For [facility] 12/21/23 Verified 24 Hours 03:55 Emergency Dysrhythmia [facility] 12/21/23 Verified Protocol 03:55 Rhythm Strips Once [facility] 12/21/23 Verified Every Shift 03:55 Oxygen By Nasal RT 12/21/23 Verified Cannula 03:55 Problem List: (1) Toxic encephalopathy (2) Generalized weakness (3) Urinary tract infection (4) Hypokalemia (5) Acute urinary retention (6) Liver mass (7) Polydrug abuse (8) Homelessness (9) Unspecified toxic encephalopathy Date of Service: Dec 21, 2023 Billing Provider: DEANDRA KILPATRICK DNP Common Visit Codes: [id number] INP/OBS CARE (HIGH) DEANDRA KILPATRICK DNP Dec 21, 2023 04:23
[2023-12-21] MEDS: cefTRIAXone 1GM/50ML D5W 50 ML IV ONE (04:49)
[2023-12-21] MEDS: SODIUM CHLOR 0.9% PF (SALINE LOCK) 10ML VIAL/SYR IV SCH (05:32)
[2023-12-21 06:06] LABS: Basophils # (auto) 0.1 10 ^3/uL (0-0.2); Basophils % (auto) 0.9 % (0.0-2.0); Eosinophils # (auto) 0.1 10 ^3/uL (0-0.8); Eosinophils % (auto) 2.1 % (0.0-7.0); Hematocrit 41.8 % (41.0-53.0); Hemoglobin 13.9 g/dL (13.5-17.5); Lymphocytes # (auto) 1.7 10 ^3/uL (0.4-5.4); Lymphocytes % (auto) 25.6 % (10.0-50.0); Mean Corpuscular Hemoglobin 30.4 pg (28.0-32.0); Mean Corpuscular Hgb Conc. 33.3 g/dL (32.0-36.0); Mean Corpuscular Volume 91.1 fL (80.0-100.0); Monocytes # (auto) 0.7 10 ^3/uL (0-1.3); Neutrophils % (auto) 60.4 % (37.0-80.0); Platelet Count (auto) 307 10^3/uL (140-450); Red Blood Cells 4.59 10^6/uL (4.5-5.90); Red Cell Distribution Width 14.6 % (11.8-14.3); White Blood Cell 6.5 10^3/uL (4.4-10.8)
[2023-12-21 06:28] LABS: Alanine Aminotransferase 30 U/L (7-40); Albumin 4.1 g/dL (3.2-4.8); Alkaline Phosphatase 110 U/L (46-116); Anion Gap 5 (5-15); Aspartate Aminotransferase 31 U/L (13-40); BUN/Creatinine Ratio 7.9 (10.0-20.0); Blood Urea Nitrogen 6 mg/dL (9-23); Calcium 9.5 mg/dL (8.7-10.4); Carbon Dioxide 32 mmol/L (20-31); Chloride 105 mmol/L (98-107); Glucose 104 mg/dL (74-106); Potassium 2.9 mmol/L (3.5-5.1); Sodium 142 mmol/L (136-145)
[2023-12-21 06:29] LABS: Bilirubin, Total 0.7 mg/dL (0.2-1.0); Total Protein 6.6 g/dL (5.7-8.2)
[2023-12-21 09:05] VITALS: PULSE 84; RESP 17; O2SAT 95
[2023-12-21] MEDS: ONDANSETRON HCL 4 MG/2 ML VIAL IV PRN (09:38)
--- NOTE | 2023-12-21 13:59 | DVHPNRES ---
Progress Note Date Seen: Dec 21, 2023 Resident Creating Document: GANESH MARINA RESIDENT Medical Necessity Reason Pt with a Central, PICC or Fol: No Subjective Review of Systems pt seen and examined at bedside. He is not mentioning of any complaints and is more alert Objective vital signs Vital Sign Date Time Temp Pulse Resp B/P (MAP) Pulse Ox O2 Delivery O2 Flow Rate FiO2 12/21/23 10:00 94 17 143/88 (106) 95 12/21/23 09:05 Room Air* 0 21 12/21/23 08:00 97.9 97.9 Total Intake and Output 12/20/23 12/20/23 12/21/23 15:00 23:00 07:00 Intake Total 50 ml Output Total 1800 ml Balance -1750 ml medications Current Medications Medications Dose Ordered Sig/Niru Route Start Time Stop Time Status Last Admin Dose Admin Sodium Chloride 10 ml Q8HR IV 12/21/23 06:00 12/21/23 05:32 10 ML Acetaminophen/ Hydrocodone Bitart 1 tab Q4HP PRN PO 12/21/23 04:00 Ondansetron HCl 4 mg Q4HP PRN IV 12/21/23 04:00 12/21/23 09:38 4 MG Docusate Sodium 100 mg BIDPRN PRN PO 12/21/23 04:00 Acetaminophen 650 mg Q6HP PRN PO 12/21/23 04:00 Nitroglycerin 0.4 mg Q5MINP PRN SL 12/21/23 04:00 Morphine Sulfate 2 mg Q30M PRN IV 12/21/23 04:00 Ceftriaxone Sodium 50 ml @ 100 mls/hr DAILY@09 IV 12/22/23 09:00 Examination Examination General Appearance: Alert, Oriented X3, Cooperative, No acute distress HEENT: EOMI Respiratory: Clear to auscultation, Normal air movement Cardiovascular: Regular rate, Normal S1, Normal S2 Abdominal: Normal bowel sounds Extremities: No cyanosis, No edema, Normal pulses, No tenderness/swelling Skin: No rashes, No breakdown Neuro: Normal speech and tone laboratory and microbiology Laboratory Tests 12/21/23 05:36 Test 12/21/23 05:36 Range/Units Serum Glucose 104 74-106 mg/dL Labs and/or images reviewed: Labs reviewed by me, Image(s) reviewed by me Problem List/Assessment/Plan Problem List/Assessment/Plan Assessment/plan # toxic encephalopathy head CT UDS b12, folate, TSH # GI bleed due to mechanical trauma -we will consult GI # UTI -IV ceftriaxone #hypokalemia -mg levels -lactated # polysubstance abuse ativan Code status discussed with the patient for greater than 21 minutes, full code Case discussion with Dr Mendoza Plan discussed with: Other My Orders My Orders Orders - GANESH MARINA Procedure Category Date Status Time Potassium Chl Justin PHA 12/21/23 Verified KCL 14:00 Date of Service: Dec 21, 2023 Billing Provider: JAYSHREE MENDOZA MD Common Visit Codes: [id number] INP/OBS CARE(HIGH) GANESH MARINA Dec 21, 2023 13:59 JAYSHREE MENDOZA MD Dec 24, 2023 18:14
[2023-12-21] MEDS ORDERED: LORazepam 2MG/ML-1ML VIAL IV PRN (14:00)
[2023-12-21 14:23] LABS: Base Excess 7.8 mmol/L (-2.0-3.0)
[2023-12-21 14:49] LABS: INR 1.02 (0.9-1.15); Partial Thromboplastin Time 26.7 SEC (24.5-34.5); Prothrombin Time 10.8 sec (9.3-11.8)
[2023-12-21] MEDS: POTASSIUM CHL 20MEQ/100ML 100 ML IV SCH (16:00)
[2023-12-21 16:51] LABS: COVID19 ANTIGEN SOFIA FIA NEGATIVE (NEGATIVE)
[2023-12-21 19:49] VITALS: PULSE 96; RESP 14; O2SAT 98
[2023-12-21 21:49] LABS: Urine Bacteria None Seen /hpf (None Seen)
[2023-12-21 21:57] LABS: Urine Blood 3+ /uL (Negative); Urine Budding Yeast MODERATE /hpf (None Seen); Urine Clarity Ex.Turbid (Clear); Urine Color Light-Orange (Yellow); Urine Mucus FEW (None Seen); Urine Protein, UAD 2+ (Negative); Urine Specific Gravity 1.028 (1.001-1.035); Urine Urobilinogen 2 mg/dL (Negative); Urine WBC 36 /hpf (0 - 3); Urine pH 6.5 (5.0-9.0)
[2023-12-22] MEDS: HYDROcodone-ACET 5/325MG TAB PO PRN (05:49)
[2023-12-22 06:24] LABS: Basophils # (auto) 0.1 10 ^3/uL (0-0.2); Eosinophils # (auto) 0.2 10 ^3/uL (0-0.8); Eosinophils % (auto) 3.6 % (0.0-7.0); Hematocrit 38.8 % (41.0-53.0); Lymphocytes # (auto) 1.3 10 ^3/uL (0.4-5.4); Lymphocytes % (auto) 21.1 % (10.0-50.0); Mean Corpuscular Hemoglobin 30.8 pg (28.0-32.0); Mean Corpuscular Hgb Conc. 33.6 g/dL (32.0-36.0); Mean Corpuscular Volume 91.7 fL (80.0-100.0); Monocytes # (auto) 0.6 10 ^3/uL (0-1.3); Monocytes % (auto) 9.7 % (0.0-12.0); Neutrophils % (auto) 64.6 % (37.0-80.0); Nucleated Red Blood Cells % 0.1 %; Platelet Count (auto) 281 10^3/uL (140-450); Red Blood Cells 4.24 10^6/uL (4.5-5.90); Red Cell Distribution Width 14.7 % (11.8-14.3); White Blood Cell 6.2 10^3/uL (4.4-10.8)
[2023-12-22 06:37] LABS: Alanine Aminotransferase 19 U/L (7-40); Alkaline Phosphatase 99 U/L (46-116); Anion Gap 4 (5-15); Aspartate Aminotransferase 20 U/L (13-40); BUN/Creatinine Ratio 9.4 (10.0-20.0); Blood Urea Nitrogen 8 mg/dL (9-23); Calcium 9.2 mg/dL (8.7-10.4); Carbon Dioxide 28 mmol/L (20-31); Chloride 108 mmol/L (98-107); Glucose 96 mg/dL (74-106); Potassium 3.6 mmol/L (3.5-5.1); Sodium 140 mmol/L (136-145)
[2023-12-22 06:38] LABS: Albumin 3.7 g/dL (3.2-4.8); Bilirubin, Total 0.5 mg/dL (0.2-1.0); Total Protein 5.9 g/dL (5.7-8.2)
[2023-12-22 08:35] VITALS: PULSE 85; RESP 19; O2SAT 95
[2023-12-22] MEDS: DOCUSATE SOD 100 MG CAP PO PRN (08:37)
[2023-12-22] MEDS: cefTRIAXone 1GM/50ML D5W 50 ML IV SCH (08:37)
[2023-12-22] MEDS: PANTOPRAZOLE 40 MG TAB PO ONE (09:12)
[2023-12-22] MEDS: POLYETHYLENE GLYCOL 17 GM PWDR PO ONE (09:12)
[2023-12-22] MEDS: POTASSIUM EFFERVESENT TAB 25 MEQ PO ONE ×2 (09:12→11:52)
[2023-12-22] MEDS: THIAMINE 100mg/ml INJ (200mg/2ml VIAL) IV ONE (09:12)
[2023-12-22 12:18] LABS: Folate (Folic Acid) 12.85 ng/mL (>5.38)
[2023-12-22] MEDS ORDERED: LIDOCAINE 2% TOPICAL JELLY 5 ML URJT TOP PRN (12:45)
[2023-12-22 12:57] LABS: Free T3 3.78 pg/mL (2.3-4.2)
[2023-12-22 12:58] LABS: Free T4 (Free Thyroxine) 1.43 ng/dL (0.89-1.76)
--- NOTE | 2023-12-22 13:48 | DVH ---
Procedure: CT PELVIS WO CONTRAST 12/22/2023 01:06 PM Indication:gross hematuria. Comparison Study: None available at time of dictation. Technique: Axial images were obtained and reformatted in coronal and sagittal planes. All CT scans at this medical facility are performed using dose modulation techniques as appropriate t o a performed exam including the following: Automated exposure control was utilized; adjustment of th e MA and/or KV according to patient size; and use of iterative reconstruction technique. CT Dose: CTDI volume is 7.81 mGy. Dose-length product is 314.19 mGy*cm FINDINGS: tract: The kidneys are normal in size bilaterally without hydronephrosis or nephrolithiasis. The urinary bladder is unremarkable. GI tract: The stomach is grossly normal in appearance. No evidence of small bowel obstruction. The la rge bowel is unremarkable. Pelvic Organs: Urinary bladder is smooth walled without mass wall thickening or stone. Prostate gland enlarged impressing upon the bladder floor. Bones/soft tissues: No acute abnormality. Other: No free fluid. No enlarged lymph nodes. IMPRESSION: 1. No evidence of urinary tract mass stone or infection. 2. Enlarged prostate gland impresses upon the floor of the urinary bladder
--- NOTE | 2023-12-22 15:35 | DVHSR ---
APPROVED REPORT EXAM: Two-dimensional and M-mode echocardiogram with Doppler and color Doppler. Blood Pressure: 115/94 mmHg INDICATION ?CHF ?hx of meth use LE edema RISK FACTORS Height: 5'10", Weight: 165 DIMENSIONS LVDd4.6 (3.8-5.7cm)LA (2D)4.1 (1.9-4.0cm)Aortic Root4.0 (2.0-3.7cm) LVDs3.0 (2.5-4.0cm)LA (MM) (1.9-4.0cm)Aortic Cusp Exc1.8 (1.5-2.0cm) EF (%) 65.0 (55-70%)Rt. Atrium3.6 (1.9-4.0cm)Asc. Aorta cm IVSd0.9 (0.7-1.1cm)RV (D) (1.8-2.4cm) PWd1.0 (0.7-1.1cm) Mitral Valve MitralMitral Stenosis E wave0.70m/sMV Mean GR.mmHg A wave0.54m/sMV Peak GR.mmHg E/A ratio1.32D MVAcm2 DECEL [id number] 1/2 Timems Aortic Valve Aortic ValveAortic Stenosis V11.49m/Daphnie Mean GR.4mmHg V21.55m/Daphnie Peak GR.10mmHg LVOT Diameter2.2 (1.8-2.4cm)Doppler AVA3.65cm2 Pulmonic Valve V21.00m/s Conclusion Normal left ventricular size and dimension. Normal left ventricular systolic function estimated ejec tion fraction of 70%. There is a grade 1 diastolic dysfunction. Normal right ventricular size and dimension. Normal right ventricular systolic function. Normal biatrial size and dimension. Normal aortic valve structure and function. Normal mitral valve structure and function. Normal tricuspid valve structure and function. The pulmonary valve is grossly normal. No pericardial effusion.
[2023-12-22] MEDS: GADOTERATE MEG 7.5 MMOL/15ml INJ (0.5MMOL/ml) IV ONE (16:42)
[2023-12-22] MEDS: GADOTERATE MEG 10 MMOL/20ml INJ (0.5MMOL/ml) IV ONE (16:42)
--- NOTE | 2023-12-22 16:43 | DVH ---
CLINICAL INFORMATION: 58 years old, Male; liver mass. TECHNIQUE: MR of the liver was performed with a body coil and a 1.5 edson magnet. Sagittal axial and coronal T1 and T2 weighted images were obtained prior to and following IV administration [address] COMPARISON: CT abdomen done 12/21/2019 FINDINGS: Liver and spleen normal in size without mass lesion. There is herniation of fat above the liver through a diaphragmatic defect No renal masses or hydronephrosis No masses in the adrenal glands or pancreas. No gallstones or biliary dilatation No free fluid No adenopathy IMPRESSION: 1. No liver mass is present. There is herniation of fat above the liver through a defect in the right lobe of the diaphragm
--- NOTE | 2023-12-22 17:22 | DVHDSRES ---
Discharge Summary Date of Admission Resident Creating Document: SOFIYA GRANADOS RESIDENT Dec 21, 2023 at 04:23 Date of Discharge: Dec 23, 2023 Admitting Diagnosis ALOC Labs/Diagnostic Data: Laboratory Results Test 12/22/23 09:00 12/22/23 05:36 12/22/23 05:23 12/21/23 20:12 HIV (1&2) Antibody Negative (Negative) Hepatitis C Antibody Negative (Negative) White Blood Count 6.2 10^3/uL (4.4-10.8) Red Blood Count 4.24 10^6/uL (4.5-5.90) Hemoglobin 13.0 g/dL (13.5-17.5) Hematocrit 38.8 % (41.0-53.0) Mean Corpuscular Volume 91.7 fL (80.0-100.0) Mean Corpuscular Hemoglobin 30.8 pg (28.0-32.0) Mean Corpuscular Hemoglobin Concent 33.6 g/dL (32.0-36.0) Red Cell Distribution Width 14.7 % (11.8-14.3) Platelet Count 281 10^3/uL (140-450) Mean Platelet Volume 7.8 fL (6.9-10.8) Neutrophils (%) (Auto) 64.6 % (37.0-80.0) Lymphocytes (%) (Auto) 21.1 % (10.0-50.0) Monocytes (%) (Auto) 9.7 % (0.0-12.0) Eosinophils (%) (Auto) 3.6 % (0.0-7.0) Basophils (%) (Auto) 1.0 % (0.0-2.0) Neutrophils # (Auto) 4.0 10 ^3/uL (1.6-8.6) Lymphocytes # (Auto) 1.3 10 ^3/uL (0.4-5.4) Monocytes # (Auto) 0.6 10 ^3/uL (0-1.3) Eosinophils # (Auto) 0.2 10 ^3/uL (0-0.8) Basophils # (Auto) 0.1 10 ^3/uL (0-0.2) Nucleated Red Blood Cells 0.1 % Sodium Level 140 mmol/L (136-145) Potassium Level 3.6 mmol/L (3.5-5.1) Chloride Level 108 mmol/L (98-107) Carbon Dioxide Level 28 mmol/L (20-31) Anion Gap 4 (5-15) Blood Urea Nitrogen 8 mg/dL (9-23) Creatinine 0.85 mg/dL (0.700-1.30) Glomerular Filtration Rate Calc 102 mL/min (>90) BUN/Creatinine Ratio 9.4 (10.0-20.0) Serum Glucose 96 mg/dL (74-106) Hemoglobin A1c 5.7 % A1C (<5.7) Calcium Level 9.2 mg/dL (8.7-10.4) Total Bilirubin 0.5 mg/dL (0.2-1.0) Aspartate Amino Transferase (AST) 20 U/L (13-40) Alanine Aminotransferase (ALT) 19 U/L (7-40) Alkaline Phosphatase 99 U/L (46-116) Creatine Kinase 85 U/L (46-171) B-Type Natriuretic Peptide 16.36 pg/mL (0-100) Total Protein 5.9 g/dL (5.7-8.2) Albumin 3.7 g/dL (3.2-4.8) Vitamin D 25-Hydroxy 35.0 ng/mL (30.0-100) Free Thyroxine (T4) Calculated 1.43 ng/dL (0.89-1.76) Free Triiodothyronine (T3) pg/mL 3.78 pg/mL (2.3-4.2) Hepatitis B Surface Antigen Negative (Negative) Urine Color Light-orange (Yellow) Urine Clarity Ex.turbid (Clear) Urine pH 6.5 (5.0-9.0) Urine Specific [place] 1.028 (1.001-1.035) Urine Protein 2+ (Negative) Urine Ketones Trace (Negative) Urine Blood 3+ /uL (Negative) Urine Nitrite Negative (Negative) Urine Bilirubin Negative (Negative) Urine Urobilinogen 2 mg/dL (Negative) Urine Leukocyte Esterase 2+ /uL (Negative) Urine RBC 743 /hpf (0 - 3) Urine WBC 36 /hpf (0 - 3) Urine Squamous Epithelial Cells Few /hpf (<5) Urine Bacteria None seen /hpf (None Seen) Urine Mucus Few (None Seen) Urine Yeast (Budding) Moderate /hpf (None Seen) Urine Glucose Normal mg/dL (Normal) Test 12/21/23 14:16 12/21/23 14:06 12/21/23 05:36 12/21/23 02:00 Prothrombin Time 10.8 sec (9.3-11.8) Prothrombin Time INR 1.02 (0.9-1.15) Activated Partial Thromboplast Time 26.7 SEC (24.5-34.5) Blood Gas Specimen Type Arterial Blood Gas Sample Site Right radial Blood Gas Patient Temperature 37.0 Arterial Blood Date Drawn [id number] Arterial Blood pH 7.484 (7.350-7.450) Arterial Blood Partial Pressure CO2 43.8 mmHg (35.0-48.0) Arterial Blood Partial Pressure O2 66.0 mmHg (83.0-108.0) Arterial Blood HCO3 32.2 mmol/L (21.0-28.0) Arterial Blood Oxygen Saturation 94.2 % (94.0-98.0) Arterial Blood Base Excess 7.8 mmol/L (-2.0-3.0) Arterial Blood Oxyhemoglobin 92.8 % (94.0-98.0) Arterial Blood Carboxyhemoglobin 1.1 % (0.5-1.5) Arterial Blood Methemoglobin 0.4 % (0.0-1.5) Denis Test Yes Blood Gas Total Hemoglobin 14.40 g/dL (13.5-17.5) Blood Gas Modality Room air FiO2 % 21.0 SARS-CoV-2 Antigen (Rapid) Negative (NEGATIVE) Magnesium Level 2.3 mg/dL (1.6-2.6) Vitamin B12 Level 225 pg/mL (211-911) Folic Acid 12.85 ng/mL (>5.38) Thyroid Stimulating Hormone (TSH) 0.51 uIU/mL (0.55-4.78) Troponin I High Sensitivity 11 ng/L (</=54) Test 12/20/23 23:10 12/20/23 22:37 Plasma/Serum Blood Alcohol < 3.0 mg/dL (<10) Urine Amorphous Crystals Few /hpf (None Seen) Urine Opiates Screen Neg (NEGATIVE) Urine Fentanyl Screen Neg (NEGATIVE) Urine Barbiturates Screen Neg (NEGATIVE) Urine Phencyclidine Screen Neg (NEGATIVE) Urine Amphetamines Screen Pos (NEGATIVE) Urine Benzodiazepines Screen Neg (NEGATIVE) Urine Cocaine Screen Neg (NEGATIVE) Urine Cannabinoids Screen Pos (NEGATIVE) Other Laboratory Tests 12/22/23 05:23 Brief Hx & Hospital Course: Michael Meyer patient is a 58-year-old male with unknown past medical history given mental status who presented to [facility] ED for evaluation of altered level of consciousness. As reported by EMS, patient is homeless and was picked up at station with initial call for abdominal pain. When EMS arrived on the scene, patient complaint of abdominal pain and confided that he stuck a piece of stick up his ass with a condom inserted for pleasure. Patient was seen and evaluated in the ED, laboratory data shows WBC 6.4, platelets 297, sodium 142, potassium 3.1, BUN 8, creatinine 0.90, glucose 117, troponin 10, blood pressure 112/73, heart rate 72, temperature 97.9 F, O2 saturation 97% on room air, toxicology reports positive for amphetamine and marijuana. Urinalysis positive for urinary tract infection. CT of the abdomen/pelvis revealing overdistended urinary bladder, no abdominal adenopathy, no ascites. KUB revealing moderate to severe colonic fecal burden, no radiodense foreign body seen. Patient was started on IV antibiotic regimen Rocephin, please see medication orders section in the computer. On my assessment, patient denied chest pain, no headache, no dizziness, no diaphoresis, no shortness of breath, no nausea, no vomiting, no fever, no chills. Patient was admitted for further evaluation and medical management. During hospital workup a head CT scan was completed which showed no evidence of acute large vessel ischemic infarction or hematoma. Age-related cerebral and cerebellar atrophy was seen. Urine drug screen was positive for methamphetamine and cannabis. Patient was diagnosed with toxic encephalopathy secondary to probable methamphetamine use. B12 and folate were within normal limits. Urinalysis showed 2+ leukocyte esterase, urine WBC and RBC and few mucus and yeast. Laboratory workup also revealed hypokalemia which was corrected. Magnesium was within normal limits. Given the history of substance use, HIV, hepatitis be antigen, hepatitis-C antibody were performed which were negative. An abdominal CT scan was completed which showed Hypodense lesion of approximate size 9 mm in the left lobe of liver. Advised further evaluation with triphasic MRI abdomen with contrast. Subsequently an MRI abdomen was completed which showed No liver mass is present. There is herniation of fat above the liver through a defect in the right lobe of the diaphragm. Patient had no symptoms, abdomen is soft and nontender. Therefore he is advised outpatient surgical workup. Discharge instructions - outpatient surgical workup for asymptomatic diaphragmatic defect. - MRI abdomen showed herniation of fat above the liver through a defect in the right lobe of the diaphragm. - urinalysis showed 2+ leukocyte esterase, moderate urine yeast. - Patient is discharged on Diflucan for 7 days. Discharge medication: Docusate 100 mg twice daily for the next 7 days, Diflucan tablet 200 mg for the next 7 days, MiraLax 17 g powder daily as needed Operations or Procedures ORDERING PHYSICIAN: SOFIYA GRANADOS PROCEDURE(s): MRABWWO - MRI ABDOMEN W AND WO REASON: ORDER NUMBER(s): [id number], ACCESSION NUMBER(s): [id number] CLINICAL INFORMATION: 58 years old, Male; liver mass. TECHNIQUE: MR of the liver was performed with a body coil and a 1.5 edson magnet. Sagittal axial and coronal T1 and T2 weighted images were obtained prior to and following IV administration [address] COMPARISON: CT abdomen done 12/21/2019 FINDINGS: Liver and spleen normal in size without mass lesion. There is herniation of fat above the liver through a diaphragmatic defect No renal masses or hydronephrosis No masses in the adrenal glands or pancreas. No gallstones or biliary dilatation No free fluid No adenopathy IMPRESSION: 1. No liver mass is present. There is herniation of fat above the liver through a defect in the right lobe of the diaphragm ATED BY: RIA CAMERON MD DICTATED DATE/TIME: 12/22/231640 SIGNED BY: RIA CAMERON MD SIGNED DATE/TIME: 12/22/231640 CC: ORDERING PHYSICIAN: SOFIYA GRANADOS PROCEDURE(s): PL2CT - PELVIS WO CONTRAST REASON: gross hematuria ORDER NUMBER(s): [id number], ACCESSION NUMBER(s): [id number] Procedure: CT PELVIS WO CONTRAST 12/22/2023 01:06 PM Indication:gross hematuria. Comparison Study: None available at time of dictation. Technique: Axial images were obtained and reformatted in coronal and sagittal planes. All CT scans at this medical facility are performed using dose modulation techniques as appropriate to a performed exam including the following: Automated exposure control was utilized; adjustment of the MA and/or KV according to patient size; and use of iterative reconstruction technique. CT Dose: CTDI volume is 7.81 mGy. Dose-length product is 314.19 mGy*cm FINDINGS: tract: The kidneys are normal in size bilaterally without hydronephrosis or nephrolithiasis. The urinary bladder is unremarkable. GI tract: The stomach is grossly normal in appearance. No evidence of small bowel obstruction. The large bowel is unremarkable. Pelvic Organs: Urinary bladder is smooth walled without mass wall thickening or stone. Prostate gland enlarged impressing upon the bladder floor. Bones/soft tissues: No acute abnormality. Other: No free fluid. No enlarged lymph nodes. IMPRESSION: 1. No evidence of urinary tract mass stone or infection. 2. Enlarged prostate gland impresses upon the floor of the urinary bladder ATED BY: RIA CAMERON MD DICTATED DATE/TIME: 12/22/231345 SIGNED BY: RIA CAMERON MD SIGNED DATE/TIME: 12/22/231345 CC: ORDERING PHYSICIAN: NURIS ZAZUETA MD PROCEDURE(s): HWOCT - HEAD WITHOUT CONTRAST REASON: [facility] ORDER NUMBER(s): [id number], ACCESSION NUMBER(s): [id number] Examination: HWOCT CLINICAL INDICATION: ;ams DIREAS;Reason for Exam: Stretcher;Stretcher;Modes of Transportation DITRANS;How is patient transported? COMPARISON: None. CONTRAST USED: None. TECHNIQUE: The examination was performed obtaining 4 mm slices without contrast. CT scan was done according to ALARA (As Low as Reasonably Achievable). Multiplanar reconstructions were obtained. This CT scan was performed using dose optimization techniques as appropriate to the performed exam including one or more of the following: automated exposure control, adjustment of the kV and/or mA according to patient size, use of iterative reconstruction technique. FINDINGS: SUPRATENTORIAL BRAIN: Cerebral Hemispheres: There is no midline shift or mass effect, intra or extra-axial fluid collections or hemorrhage. Prominent sulcal - gyral pattern and cisternal spaces in both cerebral hemispheres suggestive of cerebral atrophy, likely age-related. Periventricular White Matter/Basal Ganglia: No abnormal areas of altered attenuation within the periventricular white matter or basal ganglia. POSTERIOR FOSSA: The brainstem is unremarkable. Prominent cerebellar folia suggestive of cerebellar atrophy, likely age-related. Prominent cisterna magna noted, normal variant. VENTRICULAR SYSTEM: The ventricular system is normal in size. Patent cavum septum pellucidum noted. There is no evidence of hydrocephalus or transependymal flow of cerebrospinal fluid. SKULL BASE AND PARASELLAR REGION: The skull base is normal with no parasellar masses or abnormalities identified. Empty sella seen. CALVARIUM AND SCALP REGION: No abnormality is seen. PARANASAL SINUSES: No significant inflammatory changes are identified in the visualized paranasal sinuses. IMPRESSION: No evidence of acute large vessel territorial ischemic infarction or intraparenchymal hematoma in current study. Cerebral and cerebellar atrophy, likely age-related. Chronic and / or ancillary findings as described above. Advise further evaluation with MRI brain without contrast if clinically indicated. Electronically Signed 12/21/2023 01:32 Natalie Kat ATED BY: CAROL ANN GRANADOS MD DICTATED DATE/TIME: 12/21/23131 SIGNED BY: CAROL ANN GRANADOS MD SIGNED DATE/TIME: 12/21/23131 CC: ORDERING PHYSICIAN: NURIS ZAZUETA MD PROCEDURE(s): CXRP - CHEST PORTABLE REASON: [facility] ORDER NUMBER(s): [id number], ACCESSION NUMBER(s): [id number] Examination: CXRP Clinical Indication: ams Comparison: None. Technique: Frontal radiograph of the chest was obtained. Findings: Patient is in rotation. Prominent bronchovascular markings in both lungs. Otherwise, lungs are clear and well expanded with no pulmonary infiltrate or pleural effusion. There is no pneumothorax. The cardiomediastinal silhouette is within normal limits. No acute osseous abnormality is seen. Impression: No acute cardiopulmonary disease is seen. Electronically Signed 12/21/2023 02:33 Natalie Kat ATED BY: CAROL ANN GRANADOS MD DICTATED DATE/TIME: 12/21/23232 SIGNED BY: CAROL ANN GRANADOS MD SIGNED DATE/TIME: 12/21/23232 CC: ORDERING PHYSICIAN: NURIS ZAZUETA MD PROCEDURE(s): ABPLIV - CT AB PEL WITH IV CON ONLY REASON: [facility] ORDER NUMBER(s): [id number], ACCESSION NUMBER(s): [id number] Examination: ABPLIV CLINICAL INDICATION: ;ams DIREAS;Reason for Exam: Stretcher;Stretcher;Modes of Transportation DITRANS;How is patient transported? ;y OECTB;Has the patient had a recent BUN/CREAT? ;N OECTC;Has the patient had IV contrast within last 48 hours?; OECTN;Has patient been NPO for at least 4 hours? COMPARISON: None. CONTRAST USED: None. TECHNIQUE: A post contrast CT study of the abdomen and pelvis is performed after administration of intravenous contrast medium. The examination was performed with [address] scan done according to ALARA (As Low as Reasonably Achievable). Multiplanar reconstructions were obtained. FINDINGS: Limited evaluation due to motion artifacts. CT ABDOMEN: Visualized lower thorax: The evaluation of lung bases demonstrates no focal infiltrates or pleural effusion. Herniation of omental fat into the right lower posterior hemithoracic region through a defect of approximate size 10 mm in the right dome of diaphragm posteriorly, suggestive of diaphragmatic hernia. Liver: The liver is enlarged in size with the right lobe measuring approximately 16.6 cm. The portal venous radicles are normal. There is no intrahepatic biliary radicle dilatation. Hypodense lesion of approximate size 9 mm in the left lobe of liver. Advised further evaluation with triphasic MRI abdomen with contrast. Gallbladder: The gallbladder is normal and reveals no intrinsic abnormality. The common bile duct is not dilated. Pancreas: The pancreas is normal in size and shape. No focal lesion is seen within. The peripancreatic fat planes are normal. Spleen: The spleen is normal in size and does not show any focal abnormality. Retroperitoneum: Both adrenal glands are normal in size and morphology. There is no significant retroperitoneal lymphadenopathy. The kidneys are normal in size with no hydronephrosis or renal calculi. Vessels: Calcific atherosclerotic aorto-iliac plaques noted. Otherwise, the aorta, IVC and mesenteric vessels appear unremarkable. Stomach and bowel: Small fat filled umbilical hernia. The bowel loops are unremarkable. There is no ascites. Skeletal system: Grade 1 retrolisthesis of L4 over L5 vertebra without spondylolysis. Mild degenerative changes in the visualized thoracolumbar vertebrae. The pelvic bones are unremarkable. CT PELVIS: Appendix: The appendix is unremarkable in appearance. Colon: The ascending, transverse, descending, sigmoid colon and rectum are unremarkable. Urinary bladder: The urinary bladder is overdistended. Pelvic organs: Midline defect noted in the prostate, likely post TURP defect. Please correlate with operative history. No significant pelvic lymphadenopathy is identified. No abnormal fluid collection is seen. IMPRESSION: Limited evaluation due to motion artifacts. Overdistended urinary bladder. No abdominal mass or adenopathy. No ascites. No free air or inflammatory changes. Chronic and / or ancillary findings as described above. Electronically Signed 12/21/2023 01:32 Natalie Kat ATED BY: CAROL ANN GRANADOS MD DICTATED DATE/TIME: 12/21/23131 SIGNED BY: CAROL ANN GRANADOS MD SIGNED DATE/TIME: 12/21/23131 CC: ORDERING PHYSICIAN: NURIS ZAZUETA MD PROCEDURE(s): KUB - KUB ABDOMEN SINGLE VIEW REASON: foreign body ORDER NUMBER(s): [id number], ACCESSION NUMBER(s): [id number] KUB ABDOMEN SINGLE VIEW HISTORY: foreign body TECHNICAL DATA: 1 view of the abdomen. COMPARISON: None FINDINGS: Patchy gas is identified within nondistended small bowel. There are no dilated small bowel loops. There is no abdominal mass effect. The renal and liver shadows are not enlarged. No abnormal calcifications are demonstrated. IMPRESSION: Moderate to severe colonic fecal burden. No radiodense foreign body seen. ATED BY: DEVON GUZMAN MD DICTATED DATE/TIME: 12/20/232130 SIGNED BY: DEVNO GUZMAN MD SIGNED DATE/TIME: 12/20/232130 CC: ORDERING PHYSICIAN: SOFIYA GRANADOS PROCEDURE(s): ECIDC - ECHO 2D MODE CARDIAC DOP REASON: ?CHF ?hx of meth use LE EdeMA ORDER NUMBER(s): [id number], ACCESSION NUMBER(s): [id number] APPROVED REPORT EXAM: Two-dimensional and M-mode echocardiogram with Doppler and color Doppler. Blood Pressure: 115/94 mmHg INDICATION ?CHF ?hx of meth use LE edema RISK FACTORS Height: 5'10", Weight: 165 DIMENSIONS LVDd 4.6 (3.8-5.7cm) LA (2D) 4.1 (1.9-4.0cm) Aortic Root 4.0 (2.0- 3.7cm) LVDs 3.0 (2.5-4.0cm) LA (MM) (1.9-4.0cm) Aortic Cusp Exc 1.8 (1.5- 2.0cm) EF (%) 65.0 (55-70%) Rt. Atrium 3.6 (1.9-4.0cm) Asc. Aorta cm IVSd 0.9 (0.7-1.1cm) RV (D) (1.8-2.4cm) PWd 1.0 (0.7-1.1cm) Mitral Valve Mitral Mitral Stenosis E wave 0.70m/s MV Mean GR. mmHg A wave 0.54m/s MV Peak GR. mmHg E/A ratio 1.3 2D MVA cm2 DECEL Time 208ms PRESS 1/2 Time ms Aortic Valve Aortic Valve Aortic Stenosis V1 1.49m/s AO Mean GR. 4mmHg V2 1.55m/s AO Peak GR. 10mmHg LVOT Diameter 2.2 (1.8-2.4cm) Doppler ELIZ 3.65cm2 Pulmonic Valve V2 1.00m/s Conclusion Normal left ventricular size and dimension. Normal left ventricular systolic function estimated ejection fraction of 70%. There is a grade 1 diastolic dysfunction. Normal right ventricular size and dimension. Normal right ventricular systolic function. Normal biatrial size and dimension. Normal aortic valve structure and function. Normal mitral valve structure and function. Normal tricuspid valve structure and function. The pulmonary valve is grossly normal. No pericardial effusion. 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 Fresh red bleeding per rectum due to mechanical trauma Hypertension Homelessness Methamphetamine and cannabis use dependence Hypokalemia History of gouty arthritis History of prostate nodules and history of elevated PSA Discharge Disposition: Home Discharge Instruct/Medications Diet: See Comment Diet comment: Soft mechanical diet, advanced as tolerated Activity: Light activity Follow Up/Referral: Follow up with primary care physician within 7-14 days Follow up with surgeon outpatient within 7-14 days Medications: Per EMR Discharge Statement: "Patient was advised to return to the ER or call 911 if any headaches, dizziness, shortness of breath, chest pain, abdominal pain, bleeding, fevers, or worsening of medical condition. Patient was counseled about treatment plan, medications, possible side effects, patientverbalized understanding. All questions were answered to the best of my ability. This discharge took greater then 30 minutes in planning, reviewing documentation, counseling the patient, and discussing with other team members." ASSESSMENT ASSESSMENT Assessment Toxic encephalopathy secondary to meth dependence versus acute cystitis Date of Service: Dec 23, 2023 Billing Provider: SHRUTI HUNTER MD Common Visit Codes: 06069-WTD/OBS DISCH DAY >30min SOFIYA GRANADOS RESIDENT Dec 22, 2023 17:22 SHRUTI HUNTER MD Dec 24, 2023 10:06
[2023-12-22] MEDS ORDERED: FLUC200T PO (17:50)
--- NOTE | 2023-12-22 18:02 | DVHPNRES ---
Progress Note Date Seen: Dec 22, 2023 Resident Creating Document: SOFIYA GRANADOS RESIDENT Medical Necessity Reason Pt with a Central, PICC or Fol: No Subjective Review of Systems The patient is a 58-year-old male with unknown past medical history given mental status who presented to [facility] ED for evaluation of altered level of consciousness. As reported by EMS, patient is homeless and was picked up at station with initial call for abdominal pain. When EMS arrived on the scene, patient complaint of abdominal pain and confided that he stuck a piece of stick up his ass with a condom inserted for pleasure. Patient was seen and evaluated in the ED, laboratory data shows WBC 6.4, platelets 297, sodium 142, potassium 3.1, BUN 8, creatinine 0.90, glucose 117, troponin 10, blood pressure 112/73, heart rate 72, temperature 97.9 F, O2 saturation 97% on room air, toxicology reports positive for amphetamine and marijuana. Urinalysis positive for urinary tract infection. CT of the abdomen/pelvis revealing overdistended urinary bladder, no abdominal adenopathy, no ascites. KUB revealing moderate to severe colonic fecal burden, no radiodense foreign body seen. Patient was started on IV antibiotic regimen Rocephin, please see medication orders section in the computer. On my assessment, patient denied chest pain, no headache, no dizziness, no diaphoresis, no shortness of breath, no nausea, no vomiting, no fever, no chills. Patient was admitted for further evaluation and medical management. Patient is seen and examined at bedside. Reports nausea, headache and nightmares. EKG reviewed, shows prolonged QTC and AV blockade. Cardiology consulted. Objective vital signs Vital Sign Date Time Temp Pulse Resp B/P (MAP) Pulse Ox O2 Delivery O2 Flow Rate FiO2 12/22/23 16:00 98.0 85 16 120/68 (85) 97 98.0 12/22/23 08:35 Room Air* 0 21 Total Intake and Output 12/21/23 12/21/23 12/22/23 15:00 23:00 07:00 Intake Total 150 ml 50 ml Output Total 2400 ml Balance 150 ml -2350 ml medications Current Medications Medications Dose Ordered Sig/Niru Route Start Time Stop Time Status Last Admin Dose Admin Sodium Chloride 10 ml Q8HR IV 12/21/23 06:00 12/22/23 09:13 10 ML Acetaminophen/ Hydrocodone Bitart 1 tab Q4HP PRN PO 12/21/23 04:00 12/22/23 05:49 1 TAB Ondansetron HCl 4 mg Q4HP PRN IV 12/21/23 04:00 12/21/23 09:38 4 MG Docusate Sodium 100 mg BIDPRN PRN PO 12/21/23 04:00 12/22/23 08:37 100 MG Acetaminophen 650 mg Q6HP PRN PO 12/21/23 04:00 Nitroglycerin 0.4 mg Q5MINP PRN SL 12/21/23 04:00 Morphine Sulfate 2 mg Q30M PRN IV 12/21/23 04:00 Ceftriaxone Sodium 50 ml @ 100 mls/hr DAILY@09 IV 12/22/23 09:00 12/22/23 08:37 100 MLS/HR Lorazepam 1 mg Q6HP PRN IV 12/21/23 14:00 Pantoprazole Sodium 40 mg DAILY@0600 PO 12/23/23 06:00 Lidocaine HCl 5 ml Q8HPRN PRN TOP 12/22/23 12:45 Examination Patient lying in bed, in no acute distress General: Well-built, afebrile, palor, mucosae are moist Cardiovascular: Regular S1 and S2. No murmurs, gallops or rubs. No JVD elevation. No pedal edema Respiratory: Normal B/L air entry on room air. Clear lung sounds on auscultation Abdomen: Soft, nontender, nondistended, normoactive bowel sounds, no rebound tenderness, no organomegaly, no masses Genitourinary: Deferred MSK/skin: Mobilizes 4 limbs. Skin is dry and warm Neurological: No motor, no sensitive deficits, normal speech. Pupils are isocoric and reactive. Psych/Mental Status: A/Ox4 laboratory and microbiology Laboratory Tests 12/22/23 05:23 Test 12/22/23 05:23 Range/Units Serum Glucose 96 74-106 mg/dL Microbiology Date/Time Source Procedure Growth Status 12/22/23 09:30 Nose MRSA Screen - Final Complete 12/20/23 22:37 Voided Urine Urine Culture - Preliminary Resulted Labs and/or images reviewed: Labs reviewed by me, Image(s) reviewed by me Problem List/Assessment/Plan Problem List/Assessment/Plan Toxic encephalopathy secondary to acute fungal cystitis versus methamphetamine use-resolved Generalized weakness Head CT completed, shows No evidence of acute large vessel territorial ischemic infarction or intraparenchymal hematoma in current study. Cerebral and cerebellar atrophy, likely age-related. TSH 0.5, free T3/T4 normal Questionable AV blockade Prolonged QTC interval Cardiology consulted Ruled out liver mass MRI abdomen with and without completed, shows no liver mass. Herniation of fat above the liver through a defect in the right lobe of diaphragm. Acute fungal cystitis UA completed, shows moderate budding yeast, 2+ esterase, no nitrites or bacteria Acute urinary retention Asymptomatic diaphragmatic defect versus hernia MRI abdomen with and without completed, shows no liver mass. Herniation of fat above the liver through a defect in the right lobe of diaphragm. Fresh red bleeding per rectum due to mechanical trauma H&H 2% topical lidocaine Homelessness director of patient financial services consulted Methamphetamine and cannabis use dependence UDS positive for methamphetamine and cannabis Counseled regarding cessation for more than 22 minutes Hypokalemia Corrected GERD prophylaxis Pantoprazole 40 mg daily DVT prophylaxis Patient is ambulatory Plan discussed with patient in which all questions have been answered Goals of care discussed with the patient for more than 22 minutes, full code status Case discussed with Dr. Mcclain. Plan discussed with: Patient My Orders My Orders Orders - SOFIYA GARNADOS Procedure Category Date Status Time RPR LAB 12/22/23 In Process 08:44 Pantoprazole Tablet PHA 12/23/23 In Process (Protonix Tablet) 06:00 Echo 2d Mode Cardiac US 12/22/23 Resulted DOP 10:[address] 12/22/23 Resulted 12:42 Mri Abdomen W And Wo MRI 12/22/23 Resulted 12:42 Lidocaine 2% Topical PHA 12/22/23 In Process Jelly (Lidocaine Hc 12:45 Schedule For Dc MATTIE 12/22/23 In Process Clinic F/U 17:22 SOFIYA GRANADOS Dec 22, 2023 18:02
[2023-12-22] MEDS: LACTULOSE 20Gm/30ML SOLN PO ONE (19:45)
[2023-12-22 20:52] VITALS: PULSE 103; RESP 23; O2SAT 97
[2023-12-22 21:57] VITALS: BP 138/78; PULSE 81; RESP 18; TEMP 98.1; O2SAT 92
[2023-12-22 22:08] VITALS: BP 138/78; PULSE 81; RESP 18; TEMP 98.1; O2SAT 92
[2023-12-23] MEDS: ACETAMINOPHEN 325 MG TAB PO PRN (00:15)
[2023-12-23] MEDS: FLUCONAZOLE 100 MG TAB PO ONE (00:17)
[2023-12-23 01:00] VITALS: BP 143/81; PULSE 78; RESP 18; TEMP 98; O2SAT 90
[2023-12-23 05:00] VITALS: BP 124/71; PULSE 87; RESP 20; TEMP 98; O2SAT 95
[2023-12-23] MEDS: PANTOPRAZOLE 40 MG TAB PO SCH (05:14)
[2023-12-23] MEDS ORDERED: FLUC200T PO (06:20)
[2023-12-23 06:22] LABS: Basophils # (auto) 0.1 10 ^3/uL (0-0.2); Basophils % (auto) 0.9 % (0.0-2.0); Eosinophils # (auto) 0.5 10 ^3/uL (0-0.8); Hematocrit 38.8 % (41.0-53.0); Hemoglobin 13.3 g/dL (13.5-17.5); Lymphocytes # (auto) 1.5 10 ^3/uL (0.4-5.4); Lymphocytes % (auto) 26.4 % (10.0-50.0); Mean Corpuscular Hemoglobin 31.3 pg (28.0-32.0); Mean Corpuscular Hgb Conc. 34.3 g/dL (32.0-36.0); Mean Corpuscular Volume 91.2 fL (80.0-100.0); Monocytes # (auto) 0.6 10 ^3/uL (0-1.3); Monocytes % (auto) 10.9 % (0.0-12.0); Neutrophils # (auto) 3.1 10 ^3/uL (1.6-8.6); Neutrophils % (auto) 53.8 % (37.0-80.0); Platelet Count (auto) 291 10^3/uL (140-450); Red Blood Cells 4.25 10^6/uL (4.5-5.90); Red Cell Distribution Width 14.8 % (11.8-14.3); White Blood Cell 5.7 10^3/uL (4.4-10.8)
[2023-12-23 06:29] LABS: Chloride 105 mmol/L (98-107); Sodium 141 mmol/L (136-145)
[2023-12-23 06:30] LABS: Anion Gap 4 (5-15); Carbon Dioxide 32 mmol/L (20-31)
[2023-12-23 06:31] LABS: Calcium 9.2 mg/dL (8.7-10.4)
[2023-12-23 06:35] LABS: Glucose 100 mg/dL (74-106)
[2023-12-23 06:36] LABS: BUN/Creatinine Ratio 13.5 (10.0-20.0); Blood Urea Nitrogen 13 mg/dL (9-23); Magnesium 2.2 mg/dL (1.6-2.6)
[2023-12-23 07:06] LABS: RPR Non Reactive (Non Reactive)
[2023-12-23 08:00] VITALS: PULSE 75
[2023-12-23 09:00] VITALS: BP 134/93; PULSE 75; RESP 17; TEMP 97.7; O2SAT 96
[2023-12-23] MEDS ORDERED: DOCU-265 PO (09:42)
[2023-12-23] MEDS ORDERED: POLY335015 PO (09:43)
--- NOTE | 2023-12-23 09:57 | ECG ---
[facility] Test Date: 2023-12-22 Test Time: 18:17:14 Pat Name: JERRY TORRES Department: er Room: 0215T B Gender: M Decal Maker: dariana : 1965 Requested By: LOLY MICHELLE Order Number: [id number] Reading MD: Frank Parks Measurements Intervals [place] Rate: 80 P: 47 VA: 152 QRS: -131 QRSD: 134 T: 58 QT: 388 QTc: 448 Interpretive Statements Sinus rhythm Right bundle branch block Inferior infarct, acute Lateral leads are also involved Electronically Signed On 01-01-2024 12:49:43 PST by Frank Parks Please click the below link to view image of tracing.
[2023-12-23] MEDS ORDERED: FLUCONAZOLE 100 MG TAB PO SCH (10:00)
--- NOTE | 2023-12-23 10:42 | DVHINCON2 ---
Date Seen: Dec 23, 2023 Referring Physician Reason for Consultation History of ALOC, methamphetamine use, av block on EKG, prolonged QTC History of Present Illness 58-year-old male patient with past medical history of gouty arthritis, hypertension, hyperlipidemia, history of 3 spinal surgeries in the cervical region and prior umbilical hernia repair. His only health care access is through the [facility], where he reports being told of an electrical activity problem at the lower portion of his heart in 2018. At that time he underwent a stress test and other evaluations, with the findings indicating a chronic conduction issue deemed non urgent in non required treatment. The patient also has significant substance use history including methamphetamine use, nicotine dependence, and prior drug abuse. He presents to the hospital with a chief complaint of abdominal pain which began after inserting a foreign object (stick wrapped in a condom) into his rectum. He reports that methamphetamine using hands disease sexual sensations, which led to the behavior. Laboratory workup revealed hypokalemia with potassium level of 3.1, which was subsequently replaced. A urine drug screen was positive for amphetamines and marijuana. A CT scan of the abdomen pelvis was performed which demonstrated an overdistended urinary bladder. The patient also reported a history of elevated PSA levels, suggesting a possible diagnosis of prostate cancer as well as MRI findings showing nodular lesion in the prostate. He received some care through the [facility] and is seeking assistance from professor of social work for halfway placement. A cardiology consultation was requested due to prolonged QTC interval and intermittent AV block . Possible contributing factors include hypokalemia, which he describes as a current issue, and potential medication effect as he is taking fluconazole which could prolonged QTC. However it is noted that his conduction abnormalities more consistent with a bundle branch block rather than AV block. Most likely his chronic conduction lesion may be contributing to his prolonged QTC. Currently the patient denies any new symptoms and is clinically stable, oriented, and without additional complaints at this time. Past Medical History gouty arthritis hypertension hyperlipidemia history of 3 spinal surgeries in the cervical region prior umbilical hernia repair Allergies: Coded Allergies: NO KNOWN ALLERGIES (Unverified , 12/21/23) Home Meds Active Scripts Polyethylene Glycol 3350 (Miralax) 17 Gm Pow, 17 GM PO DAILYP PRN for 7 Days, #1 POW Prov:GANESH MARINA RESIDENT 12/23/23 Docusate Sodium (Docusate Sodium) 100 Mg Cap, 100 MG PO BIDPRN PRN for 7 Days, #14 CAP Prov:GANESH MARINA RESIDENT 12/23/23 Fluconazole (Diflucan) 200 Mg Tab, 1 TAB PO DAILY, #7 TAB Prov:GANESH MARINA RESIDENT 12/23/23 Current Medications Current Medications Medications (Trade) Dose Ordered Sig/Niru Route PRN Reason Start Time Stop Time Status Last Admin Pantoprazole Sodium (Protonix Tablet) 40 mg DAILY@0600 PO 12/23/23 06:00 12/23/23 05:14 Lidocaine HCl (Lidocaine HCl Jelly) 5 ml Q8HPRN PRN TOP BREAKTHROUGH PAIN 12/22/23 12:45 Lactulose 30 ml DAILY PO 12/23/23 10:00 Fluconazole (Diflucan Tablet) 400 mg DAILY PO 12/23/23 10:00 12/23/23 06:19 DC Fluconazole (Diflucan Tablet) 200 mg DAILY PO 12/23/23 10:00 Review of Systems Constitutional: No: Fever, Chills, Sweats, Weakness, Malaise, Other Eyes: No: Pain, Vision change, Conjunctivae inflammation, Eyelid inflammation, Other, Redness ENT: No: Ear pain, Ear discharge, Nose pain, Nose discharge, Nose congestion, Mouth pain, Mouth swelling, Throat pain, Throat swelling, Other Respiratory: No Wheezing, Hemoptysis, Pleuritic Pain, Sputum, Wheezing, Other Cardiovascular: No: Chest Pain, Palpitations, Orthopnea, Paroxysmal Noc. Dyspnea, Edema, Lt Headedness, Other Gastrointestinal: No: Nausea, Vomiting, Abdominal Pain, Diarrhea, Constipation, Melena, Hematochezia, Other Musculoskeletal: No: other, neck pain, shoulder pain, arm pain, back pain, hand pain, leg pain, foot pain Neurological:; No: Weakness, Numbness, Incoordination, Change in speech, Confusion, Seizures Vital Signs Vital Signs Date Time Temp Pulse Resp B/P (MAP) Pulse Ox O2 Delivery O2 Flow Rate FiO2 12/23/23 05:00 98.0 87 20 124/71 (88) 95 98.0 12/22/23 21:57 Room Air* 0 21 Physical Exam Examination General Appearance: Alert, Oriented X3, Cooperative, No acute distress Respiratory: Clear to auscultation, Normal air movement Cardiovascular: Regular rate, Normal S1, Normal S2 Abdominal: Normal bowel sounds Extremities: No cyanosis, No edema, Normal pulses, No tenderness/swelling Skin: No rashes, No breakdown Neuro: Normal gait, Normal speech, Strength at 5/5 X4 ext, Normal tone, Sensation intact, Cranial nerves 3-12 NL, Reflexes 2+ Psych/Mental Status: Mental status NL, Mood NL Labs/Diagnostic Data Labs Test 12/23/23 05:27 12/22/23 22:06 12/22/23 09:00 12/22/23 05:36 Range/Units White Blood Count 5.7 4.4-10.8 10^3/uL Red Blood Count 4.25 L 4.5-5.90 10^6/uL Hemoglobin 13.3 L 13.5-17.5 g/dL Hematocrit 38.8 L 41.0-53.0 % Mean Corpuscular Volume 91.2 80.0-100.0 fL Mean Corpuscular Hemoglobin 31.3 28.0-32.0 pg Mean Corpuscular Hemoglobin Concent 34.3 32.0-36.0 g/dL Red Cell Distribution Width 14.8 H 11.8-14.3 % Platelet Count 291 140-450 10^3/uL Mean Platelet Volume 7.9 6.9-10.8 fL Neutrophils (%) (Auto) 53.8 37.0-80.0 % Lymphocytes (%) (Auto) 26.4 10.0-50.0 % Monocytes (%) (Auto) 10.9 0.0-12.0 % Eosinophils (%) (Auto) 8.0 H 0.0-7.0 % Basophils (%) (Auto) 0.9 0.0-2.0 % Neutrophils # (Auto) 3.1 1.6-8.6 10 ^3/uL Lymphocytes # (Auto) 1.5 0.4-5.4 10 ^3/uL Monocytes # (Auto) 0.6 0-1.3 10 ^3/uL Eosinophils # (Auto) 0.5 0-0.8 10 ^3/uL Basophils # (Auto) 0.1 0-0.2 10 ^3/uL Nucleated Red Blood Cells 0.0 % Sodium Level 141 136-145 mmol/L Potassium Level 4.0 3.5-5.1 mmol/L Chloride Level 105 98-107 mmol/L Carbon Dioxide Level 32 H 20-31 mmol/L Anion Gap 4 L 5-15 Blood Urea Nitrogen 13 9-23 mg/dL Creatinine 0.96 0.700-1.30 mg/dL Glomerular Filtration Rate Calc 93 >90 mL/min BUN/Creatinine Ratio 13.5 10.0-20.0 Serum Glucose 100 74-106 mg/dL Calcium Level 9.2 8.7-10.4 mg/dL Magnesium Level 2.2 1.6-2.6 mg/dL Troponin I High Sensitivity 5 </=54 ng/L Rapid Plasma Reagin Non reactive Non Reactive HIV (1&2) Antibody Negative Negative Hepatitis C Antibody Negative Negative Test 12/22/23 05:23 12/21/23 20:12 12/21/23 14:16 12/21/23 14:06 Range/Units Hemoglobin A1c 5.7 <5.7 % A1C Total Bilirubin 0.5 0.2-1.0 mg/dL Aspartate Amino Transferase (AST) 20 13-40 U/L Alanine Aminotransferase (ALT) 19 7-40 U/L Alkaline Phosphatase 99 46-116 U/L Creatine Kinase 85 46-171 U/L B-Type Natriuretic Peptide 16.36 0-100 pg/mL Total Protein 5.9 5.7-8.2 g/dL Albumin 3.7 3.2-4.8 g/dL Vitamin D 25-Hydroxy 35.0 30.0-100 ng/mL Free Thyroxine (T4) Calculated 1.43 0.89-1.76 ng/dL Free Triiodothyronine (T3) pg/mL 3.78 2.3-4.2 pg/mL Hepatitis B Surface Antigen Negative Negative Urine Color Light-orange Yellow Urine Clarity Ex.turbid Clear Urine pH 6.5 5.0-9.0 Urine Specific [place] 1.028 1.001-1.035 Urine Protein 2+ H Negative Urine Ketones Trace Negative Urine Blood 3+ H Negative /uL Urine Nitrite Negative Negative Urine Bilirubin Negative Negative Urine Urobilinogen 2 H Negative mg/dL Urine Leukocyte Esterase 2+ Negative /uL Urine RBC 743 0 - 3 /hpf Urine WBC 36 0 - 3 /hpf Urine Squamous Epithelial Cells Few <5 /hpf Urine Bacteria None seen None Seen /hpf Urine Mucus Few None Seen Urine Yeast (Budding) Moderate None Seen /hpf Urine Glucose Normal Normal mg/dL Prothrombin Time 10.8 9.3-11.8 sec Prothrombin Time INR 1.02 0.9-1.15 Activated Partial Thromboplast Time 26.7 24.5-34.5 SEC Blood Gas Specimen Type Arterial Blood Gas Sample Site Right radial Blood Gas Patient Temperature 37.0 Arterial Blood Date Drawn [id number] Arterial Blood pH 7.484 H 7.350-7.450 Arterial Blood Partial Pressure CO2 43.8 35.0-48.0 mmHg Arterial Blood Partial Pressure O2 66.0 L 83.0-108.0 mmHg Arterial Blood HCO3 32.2 H 21.0-28.0 mmol/L Arterial Blood Oxygen Saturation 94.2 94.0-98.0 % Arterial Blood Base Excess 7.8 H -2.0-3.0 mmol/L Arterial Blood Oxyhemoglobin 92.8 L 94.0-98.0 % Arterial Blood Carboxyhemoglobin 1.1 0.5-1.5 % Arterial Blood Methemoglobin 0.4 0.0-1.5 % Denis Test Yes Blood Gas Total Hemoglobin 14.40 13.5-17.5 g/dL Blood Gas Modality Room air FiO2 % 21.0 SARS-CoV-2 Antigen (Rapid) Negative NEGATIVE Test 12/21/23 05:36 12/20/23 23:10 12/20/23 22:37 Range/Units Vitamin B12 Level 225 211-911 pg/mL Folic Acid 12.85 >5.38 ng/mL Thyroid Stimulating Hormone (TSH) 0.51 L 0.55-4.78 uIU/mL Plasma/Serum Blood Alcohol < 3.0 <10 mg/dL Urine Amorphous Crystals Few None Seen /hpf Urine Opiates Screen Neg NEGATIVE Urine Fentanyl Screen Neg NEGATIVE Urine Barbiturates Screen Neg NEGATIVE Urine Phencyclidine Screen Neg NEGATIVE Urine Amphetamines Screen Pos NEGATIVE Urine Benzodiazepines Screen Neg NEGATIVE Urine Cocaine Screen Neg NEGATIVE Urine Cannabinoids Screen Pos NEGATIVE Microbiology Date/Time Source Procedure Growth Status 12/22/23 09:30 Nose MRSA Screen - Final Complete 12/20/23 22:37 Voided Urine Urine Culture - Preliminary Resulted Assessment Chronic Right bundle branch block without AV block Hypokalemia Substance use (methamphetamine and nicotine dependence, marijuana use ) Prostate nodules and history of elevated PSA (per patient) Plan/Recommendation Conservative management EKG monitoring Avoidance of QT prolonging medications Potassium and magnesium, maintain serum potassium more than 4 millimole per L and magnesium more than 2 mg/dL to minimize the risk of arrhythmias associated with a QT prolongation. Substance use counseling Prostate cancer workup, arrange follow-up with the [facility] to assess the need for further workup (biopsy or repeat PSA testing ) Floor Covering Printer consult for assistance with the halfway placement and support services to address housing stability Thank you for allowing us participate in this case, there is no further workup indicated at this time, we are signing off Case discussed with Dr. Rodriguez Critical care, time spent: 48 minutes Plan discussed with: Patient Date of Service: Dec 23, 2023 Billing Provider: ANNE RODRIGUEZ MD Cardiology Common Codes: [id number] INP/OBS CARE (High) LOLY HAMILTON RESIDENT Dec 23, 2023 10:42
[2023-12-23] MEDS: LACTULOSE 20Gm/30ML SOLN PO SCH (10:49)
[2023-12-23] MEDS: FLUCONAZOLE 100 MG TAB PO SCH (10:49)
--- NOTE | 2024-01-12 01:33 | CODING ---
Date of Service: Dec 22, 2023 Billing Provider: SHRUTI HUNTER MD Common Visit Codes: 42497-TDZ/OBS DISCH DAY >30min SHRUTI HUNTER MD Jan 12, 2024 01:33
== END 2023-12-23 15:30 | disposition home or self-care (01) | DRG 463 ==
LOC: EDBD 19:45 → ER 19:45 → TELE 12-21 04:23 → TELE-CENTR 12-22 21:44
PROVIDERS: ADMIT Student in an Organized Health Care Education/Training Program; ATTEND Emergency Medicine
DX: N30.00 Acute cystitis without hematuria (principal); G92.9 Unspecified toxic encephalopathy; E78.5 Hyperlipidemia, unspecified; Z59.01 Sheltered homelessness; F15.20 Other stimulant dependence, uncomplicated; E87.6 Hypokalemia; I45.10 Unspecified right bundle-branch block; Z20.822 Contact with and (suspected) exposure to COVID-19; F17.200 Nicotine dependence, unspecified, uncomplicated; I10 Essential (primary) hypertension; M10.9 Gout, unspecified; F12.10 Cannabis abuse, uncomplicated; K44.9 Diaphragmatic hernia without obstruction or gangrene; I44.30 Unspecified atrioventricular block; Y92.89 Other specified places as the place of occurrence of the external cause; K62.5 Hemorrhage of anus and rectum; T79.2XXA Traumatic secondary and recurrent hemorrhage and seroma, initial encounter; W44.F9XA Other object of natural or organic material, entering into or through a natural orifice, initial encounter; Y93.89 Activity, other specified; Y99.8 Other external cause status
CPT/HCPCS: 36415; 36600; 70450; 71045; 72192; 74018; 74177; 74183; 80048; 80053; 80307; 80320; 81001; 82306; 82550; 82607; 82746; 82805; 83036; 83735; 83880; 84439; 84443; 84481; 84484; 85025; 85610; 85730; 86592; 86703; 86803; 87081; 87086; 87340; 87426; 93005; 93306; 99291; G0378; J2250; J2405; J3480

== ENCOUNTER 2024-01-08 19:42 | Emergency (ER) | payer MEDICAID ==
[~2024-01-08] VITALS: Ht 165.1 cm; Wt 70.0 kg
[~2024-01-08 19:42] MED LIST: DOCU-265 PO; FLUC200T PO; POLY335015 PO
--- NOTE | 2024-01-08 19:51 | ED.PDOC ---
GI ASSESSMENT HPI Comments 58y M who presents to the ED via EMS for chief complaint of constipation. Pt states he has been having abdominal pain with associated constipation for the past 16 days. Per EMS, pt has been homeless and states he has been homeless for the past "few months" and EMS states pt was picking food around trash cans and started to feel "queasy" with noted abdominal distention and abdominal pain and called EMS to the scene. EMS states pt on scene had EKG which was suspicious for KS and pt was given 324 ASA but repeat EKG was normal. Pt otherwise states his pain is diffusely located, constant, aching in nature, with no associated exacerbating or relieving factors. Pt states he also did METH earlier today. Pt otherwise denies any other symptoms at this time. Chief Complaint: Constipation Time Seen by MD: 19:48 Reviewed Notes: Practice Support Specialist Notes, Medications Allergies: Coded Allergies: NO KNOWN ALLERGIES (Unverified , 12/21/23) Home Meds Active Scripts Docusate Sodium (Colace) 100 Mg Cap, 1 CAP PO BID, #30 CAP Prov:BENEDICT PADILLA MD 01/08/24 Polyethylene Glycol 3350 (Miralax) 17 Gm Pow, 17 GM PO DAILYP PRN for 7 Days, #1 POW Prov:GANESH MARINA RESIDENT 12/23/23 Docusate Sodium (Docusate Sodium) 100 Mg Cap, 100 MG PO BIDPRN PRN for 7 Days, #14 CAP Prov:GANESH MARINA RESIDENT 12/23/23 Fluconazole (Diflucan) 200 Mg Tab, 1 TAB PO DAILY, #7 TAB Prov:GANESH MARINA RESIDENT 12/23/23 Information Source: Patient, Emergency Med Personnel Mode of Arrival: EMS Brought in by: EMS Timing: Hours Duration: Since onset Prehospital treatment: ASA Quality: Aching Vomitus: None Stool: Normal Severity: Moderate Recent: Possible spoiled food Recent Hx of: None Pain Location: Diffuse Modifying Factors: Nothing Associated sign and symptoms: Constipation, Abdominal Pain Past Medical History PAST MEDICAL HISTORY: Gout, High Lipids, HTN Surgical History (Other): back surgery Family History Family History: Family hx of Cancer Social History Smoker: Cigarettes Alcohol: Denies ETOH Use Drugs: Methamphetamine Lives In: Home Constitutional: denies: chills, diaphoresis, fatigue, fever, malaise, sweats, weakness, others EENTM: denies: blurred vision, double vision, ear bleeding, ear discharge, ear drainage, ear pain, ear ringing, eye pain, eye redness, hearing loss, mouth pain, mouth swelling, nasal discharge, nose bleeding, nose congestion, nose pain, photophobia, tearing, throat pain, throat swelling, voice changes, others Respiratory: denies: cough, hemoptysis, orthopnea, SOB at rest, shortness of breath, SOB with excertion, stridor, wheezing, others Cardiovascular: denies: chest pain, dizzy spells, diaphoresis, Dyspnea on exertion, edema, irregular heart beat, left arm pain, lightheadedness, palpitations, PND, syncope, others Gastrointestinal: reports: abdominal pain, constipated; denies: abdomen d istended, blood streaked bowels, diarrhea, dysphagia, difficulty swallowing, hematemesis, melena, nausea, poor appetite, poor fluid intake, rectal bleeding, rectal pain, vomiting, others Genitourinary: denies: burning, dysuria, flank pain, frequency, hematuria, incontinence, penile discharge, penile sore, pain, testicle pain, testicle swelling, urgency, others Neurological: denies: dizziness, fainting, headache, left sided numbness, left sided weakness, numbness, paresthesia, pre-existing deficit, right sided numbness, right sided weakness, seizure, speech problems, tingling, tremors, weakness, others Musculoskeletal: denies: back pain, gout, joint pain, joint swelling, muscle pain, muscle stiffness, neck pain, others Integumetry: denies: bruises, change in color, change in hair/nails, dryness, laceration, lesions, lumps, rash, wounds, others Allergic/Immunocompromised: denies: Difficulty Healing, Frequent Infections, Hives, Itching, others Hematologic/Lymphatic: denies: anemia, blood clots, easy bleeding, easy bruising, swollen glands, others Endocrine: denies: excessive hunger, excessive sweating, excessive thirst, excessive urination, flushing, intolerance to cold, intolerance to heat, unexplained weight gain, unexplained weight loss, others Psychiatric: denies: anxiety, bipolar disorder, depression, hopeless, panic disorder, schizophrenia, sleepless, suicidal, others All Other Systems: Reviewed and Negative Physical Exam General Appearance: No Apparent Distress HEENT: Normal ENT Inspection, Pharynx Normal, TMs Normal Neck: Full Range of Motion, Non-Tender, Normal, Normal Inspection Respiratory: Chest Non-Tender, Lungs Clear, No Accessory Muscle Use, No Respiratory Distress, Normal Breath Sounds Cardiovascular: No Edema, No JVD, No Murmur, No Gallop, Normal Peripheral Pulses, Regular Rate/Rhythm Breast Exam: Deferred Gastrointestinal: No Organomegaly, Non Tender, No Pulsatile Mass, Normal Bowel Sounds, Soft Genitalia: Deferred Pelvic: Deferred Rectal: Deferred Extremities: No calf tenderness, Normal capillary refill, Normal inspection, Normal range of motion, Non-tender, No pedal edema Musculoskeletal : Apperance: Normal Neurologic: Alert, 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 Was a procedure done?: No GI differential Dx Differential Diagnosis: Constipation, Gastroenteritis, Pancreatitis, Electrolyte Imbalance, Food Poisoning, Bacterial, Viral X-Ray, Labs, Meds, VS Vital Signs Date Time Temp Pulse Resp B/P (MAP) Pulse Ox O2 Delivery O2 Flow Rate FiO2 01/08/24 19:45 98.3 80 16 139/96 (110) 98 Lab Test 01/08/24 19:50 Range/Units White Blood Count 6.8 4.4-10.8 10^3/uL Red Blood Count 4.39 L 4.5-5.90 10^6/uL Hemoglobin 13.5 13.5-17.5 g/dL Hematocrit 40.1 L 41.0-53.0 % Mean Corpuscular Volume 91.3 80.0-100.0 fL Mean Corpuscular Hemoglobin 30.7 28.0-32.0 pg Mean Corpuscular Hemoglobin Concent 33.6 32.0-36.0 g/dL Red Cell Distribution Width 15.0 H 11.8-14.3 % Platelet Count 354 140-450 10^3/uL Mean Platelet Volume 7.7 6.9-10.8 fL Neutrophils (%) (Auto) 62.0 37.0-80.0 % Lymphocytes (%) (Auto) 22.5 10.0-50.0 % Monocytes (%) (Auto) 9.5 0.0-12.0 % Eosinophils (%) (Auto) 4.8 0.0-7.0 % Basophils (%) (Auto) 1.2 0.0-2.0 % Neutrophils # (Auto) 4.2 1.6-8.6 10 ^3/uL Lymphocytes # (Auto) 1.5 0.4-5.4 10 ^3/uL Monocytes # (Auto) 0.6 0-1.3 10 ^3/uL Eosinophils # (Auto) 0.3 0-0.8 10 ^3/uL Basophils # (Auto) 0.1 0-0.2 10 ^3/uL Nucleated Red Blood Cells 0.0 % Sodium Level 143 136-145 mmol/L Potassium Level 3.2 L 3.5-5.1 mmol/L Chloride Level 105 98-107 mmol/L Carbon Dioxide Level 28 20-31 mmol/L Anion Gap 10 5-15 Blood Urea Nitrogen 11 9-23 mg/dL Creatinine 0.91 0.700-1.30 mg/dL Glomerular Filtration Rate Calc 99 >90 mL/min BUN/Creatinine Ratio 12.1 10.0-20.0 Serum Glucose 89 74-106 mg/dL Calcium Level 9.8 8.7-10.4 mg/dL Total Bilirubin 0.3 0.2-1.0 mg/dL Aspartate Amino Transferase (AST) 19 13-40 U/L Alanine Aminotransferase (ALT) 14 7-40 U/L Alkaline Phosphatase 92 46-116 U/L Total Protein 6.4 5.7-8.2 g/dL Albumin 4.2 3.2-4.8 g/dL Lipase 32 12-53 U/L CT scan shows mostly constipation. The patient's CBC and chemistry panel shows hypokalemia at 3.2 The patient's lipase is within normal limits At this time, the patient will be discharged The patient was given Colace The patient was also given a prescription of Colace The patient will return to the emergency department's condition worsens. Images Reviewed?: Images reviewed and evaluated by me Time of 1ST Reevaluation: 20:20 Reevaluation 1ST: Unchanged Patient Education/Counseling: Diagnosis, Treatment, Prognosis, Need For Follow Up Family Education/Counseling: No Family Present Departure 1 Departure Time of Disposition: 21:25 Impression: Primary Impression: Constipation Qualified Codes: K59.00 - Constipation, unspecified Disposition: HOME / SELF CARE / HOMELESS Condition: Fair e-Prescriptions Docusate Sodium (Colace) 100 Mg Cap 1 CAP PO BID, #30 CAP Prov: BENEDICT PADILLA MD 01/08/24 Discharged With: Self Critical Care Note Critical Care Time?: No Stability Stability form required: No Heart Score Heart Score: Heart Score Response (Comments) Value History N/A 0 EKG N/A 0 Age N/A 0 Risk Factors N/A 0 Troponin N/A 0 Total 0 I personally scribed for BENEDICT PADILLA MD ([email or web address]) on 01/08/24 at 19:51. Electronically submitted by Len Magana ([email or web address]). BENEDICT PADILLA MD Jan 08, 2024 19:51
[2024-01-08 20:05] LABS: Basophils # (auto) 0.1 10 ^3/uL (0-0.2); Basophils % (auto) 1.2 % (0.0-2.0); Eosinophils # (auto) 0.3 10 ^3/uL (0-0.8); Eosinophils % (auto) 4.8 % (0.0-7.0); Hematocrit 40.1 % (41.0-53.0); Hemoglobin 13.5 g/dL (13.5-17.5); Lymphocytes # (auto) 1.5 10 ^3/uL (0.4-5.4); Lymphocytes % (auto) 22.5 % (10.0-50.0); Mean Corpuscular Hemoglobin 30.7 pg (28.0-32.0); Mean Corpuscular Hgb Conc. 33.6 g/dL (32.0-36.0); Mean Corpuscular Volume 91.3 fL (80.0-100.0); Monocytes # (auto) 0.6 10 ^3/uL (0-1.3); Monocytes % (auto) 9.5 % (0.0-12.0); Neutrophils # (auto) 4.2 10 ^3/uL (1.6-8.6); Platelet Count (auto) 354 10^3/uL (140-450); Red Blood Cells 4.39 10^6/uL (4.5-5.90); White Blood Cell 6.8 10^3/uL (4.4-10.8)
[2024-01-08 20:26] LABS: Alanine Aminotransferase 14 U/L (7-40); Albumin 4.2 g/dL (3.2-4.8); Alkaline Phosphatase 92 U/L (46-116); Anion Gap 10 (5-15); Aspartate Aminotransferase 19 U/L (13-40); BUN/Creatinine Ratio 12.1 (10.0-20.0); Bilirubin, Total 0.3 mg/dL (0.2-1.0); Blood Urea Nitrogen 11 mg/dL (9-23); Calcium 9.8 mg/dL (8.7-10.4); Carbon Dioxide 28 mmol/L (20-31); Chloride 105 mmol/L (98-107); Glucose 89 mg/dL (74-106); Lipase 32 U/L (12-53); Sodium 143 mmol/L (136-145); Total Protein 6.4 g/dL (5.7-8.2)
[2024-01-08 20:45] LABS: Potassium 3.2 mmol/L (3.5-5.1)
[2024-01-08] MEDS ORDERED: DOCU-94 PO (20:54)
[2024-01-08 21:15] VITALS: BP 137/98; TEMP 98.1
[2024-01-08] MEDS: DOCUSATE SOD 100 MG CAP PO ONE (21:20)
[2024-01-08] MEDS: POTASSIUM CHL 20 Meq TABLET PO ONE (21:21)
[2024-01-08 21:27] VITALS: PULSE 89; RESP 14; O2SAT 98
--- NOTE | 2024-01-08 21:41 | DVH ---
Exam: CT CT AB PEL WO CON-NO ORAL OR IV History: pain Comparison Study: None available at time of dictation. TECHNIQUE: Multidetector CT of the abdomen was performed from lung bases to pubic symphysis. Imaging was performed without IV contrast. Axial, coronal and sagittal multiplanar reformats were obtained fr om the axial data set by the technologist. Radiation Dose Information: CT Dose: CTDI volume is 7.29 mGy. Dose-length product is 435.92 mGy*cm FINDINGS: Evaluation of solid organs is limited due to lack of intravenous contrast use. Findings: Lung Bases: No acute or significant lung base finding. Normal heart size. No pleural or pericardial effusion. Liver: The liver is normal in size. No focal lesions. Gallbladder and Biliary Tree: Unremarkable Spleen: Unremarkable Pancreas: The pancreas is grossly normal in appearance. Adrenal Glands: Unremarkable Kidneys: Kidneys are grossly normal without calculi or hydronephrosis. Small nonobstructing right hugo al calculus. Bladder: Grossly unremarkable for degree of distention. Bowel: The stomach is grossly normal in appearance. Small bowel and colon are normal in caliber and d istribution. The appendix is not visualized; however, no secondary findings of acute appendicitis id entified. Ascites: Absent Lymphadenopathy: No mesenteric, retroperitoneal or periportal lymphadenopathy. Abdominal Wall and Mesentery: Unremarkable. Vasculature: The visualized abdominal aorta is normal in size and caliber. Evaluation of abdominal a nd pelvic vessels is limited due to lack of intravenous contrast. Pelvic Organs: Unremarkable Musculoskeletal: No aggressive focal bony lesions, acute fractures or dislocation. Questionable Grad e 1 retrolisthesis at L4-5. Soft tissues: Unremarkable IMPRESSION: 1. No CT findings to suggest bowel obstruction. 2. Small right renal calculus no hydronephrosis. No left renal calculi. 3. No calcified gallstones. Radiation optimization: All CT scans at this facility use at least one of these dose optimization komal hniques: automated exposure control mA and/or kV adjustment per patient size (includes targeted exam s where dose is matched to clinical indication) or iterative reconstruction.
== END 2024-01-08 21:50 | disposition home or self-care (01) ==
LOC: EDBD 19:42 → ER 19:42
DX: K59.00 Constipation, unspecified (principal); E78.5 Hyperlipidemia, unspecified; I10 Essential (primary) hypertension; F17.210 Nicotine dependence, cigarettes, uncomplicated; F15.90 Other stimulant use, unspecified, uncomplicated; Z79.899 Other long term (current) drug therapy; Z98.890 Other specified postprocedural states
CPT/HCPCS: 36415; 74176; 80053; 83690; 85025

== ENCOUNTER 2024-01-15 11:49 | Emergency (ER) | payer MEDICAID ==
[~2024-01-15] VITALS: Ht 177.8 cm; Wt 81.8 kg
[~2024-01-15 11:49] MED LIST changes: +DOCU-94 PO
--- NOTE | 2024-01-15 12:00 | ED.PDOC ---
Altered Mental Status HPI Comments 58 year old male LUCRETIA presents to the ED with chief complaint of ALOC. EMS reports patient was found in front of [place] on the ground. EMS relays that the patient admitted to using methamphetamine, however, he is not conversing and is only seen to be shaking his arms and repeating "yes your majesty." Patient unable to provide any further history at this time. Time Seen by MD: 11:56 Reviewed Notes: Nurses Notes, Weather Algorithm Scientist Notes, Medications, Allergies Allergies: Coded Allergies: NO KNOWN ALLERGIES (Unverified , 12/21/23) Home Meds Active Scripts Docusate Sodium (Colace) 100 Mg Cap, 1 CAP PO BID, #30 CAP Prov:BENEDICT PADILLA MD 01/08/24 Polyethylene Glycol 3350 (Miralax) 17 Gm Pow, 17 GM PO DAILYP PRN for 7 Days, #1 POW Prov:GANESH MARINA 12/23/23 Docusate Sodium (Docusate Sodium) 100 Mg Cap, 100 MG PO BIDPRN PRN for 7 Days, #14 CAP Prov:GANESH MARINA 12/23/23 Fluconazole (Diflucan) 200 Mg Tab, 1 TAB PO DAILY, #7 TAB Prov:GANESH MARINA RESIDENT 12/23/23 Information Source: Patient, Emergency Med Personnel Mode of Arrival: EMS Severity: Moderate Timing: Hours Duration: Since onset Prehospital treatment: None Quality: Confusion Recent: Medication/Drug Abuse History of: Other (Methamphetamine use) Associated Signs and Symptoms: None Past Medical History PAST MEDICAL HISTORY: Gout, High Lipids, HTN Surgical History: Denies all surgeries Family History Family History: Family hx of Cancer Social History Smoker: Cigarettes Alcohol: Denies ETOH Use Drugs: Methamphetamine Lives In: Home Unable to Obtain due to: Altered Mental Status All Other Systems: Reviewed and Negative Physical Exam General Appearance: Moderate Distress, Normal HEENT: Normal ENT Inspection, PERRL/EOMI Neck: Full Range of Motion, Non-Tender, Normal, Normal Inspection Respiratory: Chest Non-Tender, Lungs Clear, No Accessory Muscle Use, No Respiratory Distress, Normal Breath Sounds Cardiovascular: No Edema, No JVD, No Murmur, No Gallop, Normal Peripheral Pulses, Regular Rate/Rhythm Breast Exam: Deferred Gastrointestinal: No Organomegaly, Non Tender, No Pulsatile Mass, Normal Bowel Sounds, Soft Genitalia: Deferred Pelvic: Deferred Rectal: Deferred Extremities: No calf tenderness, Normal capillary refill, Normal inspection, Normal range of motion, Non-tender, No pedal edema Musculoskeletal : Apperance: Normal Neurologic: drafter electromechanical II-XII nml as Tested, Disoriented, No Motor Deficits, Normal Affect, Normal Mood, No Sensory Deficits Cerebellar Function: NOT DONE Reflexes: NOT DONE Skin: Dry, Normal Color, Warm Peripheral Pulses: 3+ Radial (R), 3+ Radial (L) Lymphatic: No Adenopathy Was a procedure done? Was a procedure done?: No Differential Diagnosis (ALOC) Differential Diagnosis: Sepsis, Drug Overdose X-Ray, Labs, Meds, VS Vital Signs Date Time Temp Pulse Resp B/P (MAP) Pulse Ox O2 Delivery O2 Flow Rate FiO2 01/15/24 13:00 120 12 124/94 (104) 97 01/15/24 12:56 119 01/15/24 12:33 124 01/15/24 12:30 126 12 142/98 (113) 97 01/15/24 11:52 98.8 110 28 140/110 (120) 99 Lab Test 01/15/24 13:02 Range/Units White Blood Count 9.0 # 4.4-10.8 10^3/uL Red Blood Count 4.33 L 4.5-5.90 10^6/uL Hemoglobin 13.5 13.5-17.5 g/dL Hematocrit 39.7 L 41.0-53.0 % Mean Corpuscular Volume 91.8 80.0-100.0 fL Mean Corpuscular Hemoglobin 31.1 28.0-32.0 pg Mean Corpuscular Hemoglobin Concent 33.9 32.0-36.0 g/dL Red Cell Distribution Width 14.4 H 11.8-14.3 % Platelet Count 311 140-450 10^3/uL Mean Platelet Volume 7.6 6.9-10.8 fL Neutrophils (%) (Auto) 67.4 37.0-80.0 % Lymphocytes (%) (Auto) 20.9 10.0-50.0 % Monocytes (%) (Auto) 8.6 0.0-12.0 % Eosinophils (%) (Auto) 2.2 0.0-7.0 % Basophils (%) (Auto) 0.9 0.0-2.0 % Neutrophils # (Auto) 6.1 1.6-8.6 10 ^3/uL Lymphocytes # (Auto) 1.9 0.4-5.4 10 ^3/uL Monocytes # (Auto) 0.8 0-1.3 10 ^3/uL Eosinophils # (Auto) 0.2 0-0.8 10 ^3/uL Basophils # (Auto) 0.1 0-0.2 10 ^3/uL Nucleated Red Blood Cells 0.1 % Prothrombin Time 10.9 9.3-11.8 sec Prothrombin Time INR 1.03 0.9-1.15 Activated Partial Thromboplast Time 25.1 24.5-34.5 SEC Sodium Level 145 136-145 mmol/L Potassium Level 3.3 L 3.5-5.1 mmol/L Chloride Level 107 98-107 mmol/L Carbon Dioxide Level 29 20-31 mmol/L Anion Gap 9 5-15 Blood Urea Nitrogen 20 9-23 mg/dL Creatinine 1.04 0.700-1.30 mg/dL Glomerular Filtration Rate Calc 84 >90 mL/min BUN/Creatinine Ratio 19.2 10.0-20.0 Serum Glucose 129 H 74-106 mg/dL Calcium Level 10.7 H 8.7-10.4 mg/dL Magnesium Level 1.9 1.6-2.6 mg/dL Total Bilirubin 0.4 0.2-1.0 mg/dL Aspartate Amino Transferase (AST) 33 13-40 U/L Alanine Aminotransferase (ALT) 25 7-40 U/L Alkaline Phosphatase 90 46-116 U/L Troponin I High Sensitivity 10 </=54 ng/L Total Protein 6.0 5.7-8.2 g/dL Albumin 4.0 3.2-4.8 g/dL Plasma/Serum Blood Alcohol < 3.0 <10 mg/dL Current Medications Medications (Trade) Dose Ordered Sig/Inru Route Start Time Stop Time Status Last Admin Sodium Chloride 1,000 ml @ 1,000 mls/hr Q1H ONCE IV 01/15/24 12:00 01/15/24 12:59 DC 01/15/24 12:54 Patient disoriented. EKG shows changes. Sent to cardiology. Vitals stable. Has taken methamphetamine. Establish intravenous access. Was given fluids pain History of drug use. No leg swelling. Continue cardiac monitoring. Time of 1ST Reevaluation: 12:56 Reevaluation 1ST: Unchanged Patient Education/Counseling: Diagnosis, Treatment Family Education/Counseling: No Family Present Departure 1 Departure Time of Disposition: 14:27 Impression: Primary Impression: Metabolic encephalopathy Additional Impression: Drug use Disposition: ADMITTED INPATIENT Admit to: Med Surg Condition: Guarded Critical Care Note Critical Care Time?: Yes (45 min-critical care time only) Stability Stability form required: No Heart Score Heart Score: Heart Score Response (Comments) Value History Slightly Suspicious 0 EKG Normal 0 Age 45-64 1 Risk Factors 1 or 2 risk factors 1 Troponin Normal limit 0 Total 2 I personally scribed for JUSTIN NÚÑEZ MD ([email or web address]) on 01/15/24 at 12:00. Electronically submitted by Yeyo Meek ([email or web address]). JUSTIN NÚÑEZ MD Jan 15, 2024 12:00
[2024-01-15] MEDS: SODIUM CHLORIDE 0.9% 1,000 ML IV ONE (12:54)
[2024-01-15 13:00] VITALS: BP 124/94; PULSE 120; RESP 12; O2SAT 97
--- NOTE | 2024-01-15 13:01 | DVH ---
CHEST RADIOGRAPH Indication: ALOC Technique: Single frontal view of the chest was obtained Comparison: XY CHEST PORTABLE on DOS: 12/21/23 FINDINGS: Lines and Tubes: None Lungs: No focal consolidation. Pleura: No effusion.No pneumothorax. Cardiomediastinal contours: Unremarkable Pulmonary vasculature: Within normal limits. Bones: No acute osseous abnormality. IMPRESSION: 1. No acute cardiopulmonary disease. HS:Y
[2024-01-15 13:22] LABS: Basophils # (auto) 0.1 10 ^3/uL (0-0.2); Basophils % (auto) 0.9 % (0.0-2.0); Eosinophils # (auto) 0.2 10 ^3/uL (0-0.8); Eosinophils % (auto) 2.2 % (0.0-7.0); Hematocrit 39.7 % (41.0-53.0); Hemoglobin 13.5 g/dL (13.5-17.5); Lymphocytes # (auto) 1.9 10 ^3/uL (0.4-5.4); Lymphocytes % (auto) 20.9 % (10.0-50.0); Mean Corpuscular Hemoglobin 31.1 pg (28.0-32.0); Mean Corpuscular Hgb Conc. 33.9 g/dL (32.0-36.0); Mean Corpuscular Volume 91.8 fL (80.0-100.0); Monocytes # (auto) 0.8 10 ^3/uL (0-1.3); Monocytes % (auto) 8.6 % (0.0-12.0); Neutrophils # (auto) 6.1 10 ^3/uL (1.6-8.6); Neutrophils % (auto) 67.4 % (37.0-80.0); Nucleated Red Blood Cells % 0.1 %; Platelet Count (auto) 311 10^3/uL (140-450); Red Blood Cells 4.33 10^6/uL (4.5-5.90); Red Cell Distribution Width 14.4 % (11.8-14.3)
[2024-01-15 13:37] LABS: INR 1.03 (0.9-1.15); Partial Thromboplastin Time 25.1 SEC (24.5-34.5); Prothrombin Time 10.9 sec (9.3-11.8)
[2024-01-15 13:42] LABS: Alanine Aminotransferase 25 U/L (7-40); Alkaline Phosphatase 90 U/L (46-116); Anion Gap 9 (5-15); Aspartate Aminotransferase 33 U/L (13-40); BUN/Creatinine Ratio 19.2 (10.0-20.0); Bilirubin, Total 0.4 mg/dL (0.2-1.0); Blood Urea Nitrogen 20 mg/dL (9-23); Carbon Dioxide 29 mmol/L (20-31); Chloride 107 mmol/L (98-107); Magnesium 1.9 mg/dL (1.6-2.6)
[2024-01-15 13:44] LABS: Blood Alcohol < 3.0 mg/dL (<10); Calcium 10.7 mg/dL (8.7-10.4); Glucose 129 mg/dL (74-106); Potassium 3.3 mmol/L (3.5-5.1); Sodium 145 mmol/L (136-145)
--- NOTE | 2024-01-16 06:49 | ECG ---
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
== END 2024-01-15 13:33 | disposition left against medical advice (07) ==
LOC: EDBD 11:49 → ER 11:49
DX: G93.41 Metabolic encephalopathy (principal); F19.90 Other psychoactive substance use, unspecified, uncomplicated; I10 Essential (primary) hypertension; E78.5 Hyperlipidemia, unspecified; F17.210 Nicotine dependence, cigarettes, uncomplicated; D69.6 Thrombocytopenia, unspecified; Z79.899 Other long term (current) drug therapy; Z98.890 Other specified postprocedural states
CPT/HCPCS: 36415; 71045; 80053; 80320; 83735; 84484; 85025; 85610; 85730; 93005; 96360; 99285; J7030

== ENCOUNTER 2024-06-27 13:51 | Inpatient (IN) | payer OTHER, MEDICAID ==
[~2024-06-27] VITALS: Ht 167.6 cm; Wt 73.4 kg
[2024-06-27 14:15] LABS: Basophils # (auto) 0 10 ^3/uL (0-0.2); Basophils % (auto) 0.5 % (0.0-2.0); Eosinophils # (auto) 0.4 10 ^3/uL (0-0.8); Eosinophils % (auto) 4.9 % (0.0-7.0); Hematocrit 42.4 % (41.0-53.0); Hemoglobin 14.4 g/dL (13.5-17.5); Lymphocytes % (auto) 23.5 % (10.0-50.0); Mean Corpuscular Hemoglobin 31.7 pg (28.0-32.0); Mean Corpuscular Volume 93.2 fL (80.0-100.0); Monocytes # (auto) 0.6 10 ^3/uL (0-1.3); Monocytes % (auto) 6.5 % (0.0-12.0); Neutrophils # (auto) 5.6 10 ^3/uL (1.6-8.6); Neutrophils % (auto) 64.6 % (37.0-80.0); Platelet Count (auto) 298 10^3/uL (140-450); Red Blood Cells 4.55 10^6/uL (4.5-5.90); Red Cell Distribution Width 14.6 % (11.8-14.3); White Blood Cell 8.7 10^3/uL (4.4-10.8)
[2024-06-27] MEDS: NITROGLYCERIN 0.4 MG SL TAB SL ONE (14:26)
[2024-06-27 14:27] LABS: Alanine Aminotransferase 17 U/L (7-40); Albumin 4.7 g/dL (3.2-4.8); Alkaline Phosphatase 79 U/L (46-116); Anion Gap 8 (5-15); Aspartate Aminotransferase 19 U/L (13-40); BUN/Creatinine Ratio 12.2 (10.0-20.0); Blood Urea Nitrogen 12 mg/dL (9-23); Carbon Dioxide 28 mmol/L (20-31); Chloride 107 mmol/L (98-107); Potassium 3.8 mmol/L (3.5-5.1); Sodium 143 mmol/L (136-145); Total Protein 6.6 g/dL (5.7-8.2)
[2024-06-27 14:29] VITALS: PULSE 79; RESP 12; O2SAT 98
[2024-06-27 14:29] LABS: Bilirubin, Total 0.3 mg/dL (0.2-1.0); Glucose 107 mg/dL (74-106)
--- NOTE | 2024-06-27 14:32 | ED.PDOC ---
HPI Comments 59-year-old male presents here with chest discomfort. He states he has had the chest discomfort for 1 week but states it became more constant today. He states he was riding his bike from [employer] to [place] and thought it would be a good idea to stop by the hospital. Denies any nausea vomiting. Reports the discomfort as tightness to the chest. States it did not get worse after the biking but he had already had the chest discomfort before getting on the manual bike. He is a long-term smoker. Currently not on any blood thinners. Denies any radiation of the discomfort to his arm or jaw. Chief Complaint: Chest Pain Time Seen by MD: 14:20 Primary Care Provider: [facility] Reviewed Notes: Medications, Allergies Allergies: Coded Allergies: NO KNOWN ALLERGIES (Unverified , 12/21/23) Home Meds Active Scripts Docusate Sodium (Colace) 100 Mg Cap, 1 CAP PO BID, #30 CAP Prov:BENEDICT PADILLA MD 01/08/24 Polyethylene Glycol 3350 (Miralax) 17 Gm Pow, 17 GM PO DAILYP PRN for 7 Days, #1 POW Prov:GANESH MARINA RESIDENT 12/23/23 Docusate Sodium (Docusate Sodium) 100 Mg Cap, 100 MG PO BIDPRN PRN for 7 Days, #14 CAP Prov:GANESH MARINA RESIDENT 12/23/23 Fluconazole (Diflucan) 200 Mg Tab, 1 TAB PO DAILY, #7 TAB Prov:GANESH MARINA RESIDENT 12/23/23 Information Source: Patient Mode of Arrival: Ambulatory Severity: Moderate Timing: Weeks Duration: Since onset Prehospital treatment: None Location: Chest (L) Radiation: No Radiation Quality: Tightness Onset: At Rest Cardiac Risk Factors: Smoker, Hyperlipidemia, HTN PE Risk Factors: None History of: None Modifying Factors: Nothing Past Medical History PAST MEDICAL HISTORY: Gout, High Lipids, HTN Past Medical History (Other): Prostate disease Surgical History: Denies all surgeries Family History Family History: Family hx of Cancer Social History Smoker: Cigarettes Alcohol: Denies ETOH Use Drugs: Methamphetamine Lives In: Home Constitutional: denies: chills, diaphoresis, fatigue, fever, malaise, sweats, weakness, others EENTM: denies: blurred vision, double vision, ear bleeding, ear discharge, ear drainage, ear pain, ear ringing, eye pain, eye redness, hearing loss, mouth pain, mouth swelling, nasal discharge, nose bleeding, nose congestion, nose pain, photophobia, tearing, throat pain, throat swelling, voice changes, others Respiratory: denies: cough, hemoptysis, orthopnea, SOB at rest, shortness of breath, SOB with excertion, stridor, wheezing, others Cardiovascular: reports: chest pain; denies: dizzy spells, diaphoresis, Dyspnea on exertion, edema, irregular heart beat, left arm pain, lightheadedness, palpitations, PND, syncope, others Gastrointestinal: denies: abdomen distended, abdominal pain, blood streaked bowels, constipated, diarrhea, dysphagia, difficulty swallowing, hematemesis, melena, nausea, poor appetite, poor fluid intake, rectal bleeding, rectal pain, vomiting, others Genitourinary: denies: burning, dysuria, flank pain, frequency, hematuria, incontinence, penile discharge, penile sore, pain, testicle pain, testicle sw elling, urgency, others Neurological: denies: dizziness, fainting, headache, left sided numbness, left sided weakness, numbness, paresthesia, pre-existing deficit, right sided numbness, right sided weakness, seizure, speech problems, tingling, tremors, weakness, others Musculoskeletal: denies: back pain, gout, joint pain, joint swelling, muscle pain, muscle stiffness, neck pain, others Integumetry: denies: bruises, change in color, change in hair/nails, dryness, laceration, lesions, lumps, rash, wounds, others Allergic/Immunocompromised: denies: Difficulty Healing, Frequent Infections, Hives, Itching, others Hematologic/Lymphatic: denies: anemia, blood clots, easy bleeding, easy bruising, swollen glands, others Endocrine: denies: excessive hunger, excessive sweating, excessive thirst, excessive urination, flushing, intolerance to cold, intolerance to heat, unexplained weight gain, unexplained weight loss, others Psychiatric: denies: anxiety, bipolar disorder, depression, hopeless, panic disorder, schizophrenia, sleepless, suicidal, others All Other Systems: Reviewed and Negative Physical Exam General Appearance: Mild Distress, Normal HEENT: Normal ENT Inspection, Pharynx Normal, TMs Normal Neck: Full Range of Motion, Non-Tender, Normal, Normal Inspection Respiratory: Chest Non-Tender, Lungs Clear, No Accessory Muscle Use, No Respiratory Distress, Normal Breath Sounds Cardiovascular: No Edema, No JVD, No Murmur, No Gallop, Normal Peripheral Pulses, Regular Rate/Rhythm Breast Exam: Deferred Gastrointestinal: No Organomegaly, Non Tender, No Pulsatile Mass, Normal Bowel Sounds, Soft Genitalia: Deferred Pelvic: Deferred Rectal: Deferred Extremities: No calf tenderness, Normal capillary refill, Normal inspection, Normal range of motion, Non-tender, No pedal edema Musculoskeletal : Apperance: Normal Neurologic: Alert, wire coiler II-XII nml as Tested, No Motor Deficits, Normal Affect, Normal Mood, No Sensory Deficits Cerebellar Function: Normal Reflexes: Normal Skin: Dry, Normal Color, Warm Lymphatic: No Adenopathy EKG EKG : Comments EKG 1. Done at 1:57 p.m. demonstrates [address]-elevation inferior leads as well as the anterior lateral EKG 2., unchanged from previous Was a procedure done? Was a procedure done?: No CP Differential Dx Differential Diagnosis: Other Differential Diagnosis: Other Differential Diagnosis: Other Comment NSTEMI, STEMI, acute coronary syndrome, PE, gastritis, pneumothorax, pneumonia, GERD X-Ray, Labs, Meds, VS Vital Signs Date Time Temp Pulse Resp B/P (MAP) Pulse Ox O2 Delivery O2 Flow Rate FiO2 06/27/24 15:15 107/72 06/27/24 14:29 77 14 134/92 (106) 98 06/27/24 14:29 79 12 98 Room Air* 0 21 06/27/24 14:29 77 06/27/24 14:26 134/92 06/27/24 14:22 76 06/27/24 13:57 78 06/27/24 13:51 99.3 78 16 122/83 (96) 97 99.3 Lab Test 06/27/24 14:58 06/27/24 13:58 Range/Units Troponin I High Sensitivity 6 4 </=54 ng/L White Blood Count 8.7 4.4-10.8 10^3/uL Red Blood Count 4.55 4.5-5.90 10^6/uL Hemoglobin 14.4 13.5-17.5 g/dL Hematocrit 42.4 41.0-53.0 % Mean Corpuscular Volume 93.2 80.0-100.0 fL Mean Corpuscular Hemoglobin 31.7 28.0-32.0 pg Mean Corpuscular Hemoglobin Concent 34.0 32.0-36.0 g/dL Red Cell Distribution Width 14.6 H 11.8-14.3 % Platelet Count 298 140-450 10^3/uL Mean Platelet Volume 7.2 6.9-10.8 fL Neutrophils (%) (Auto) 64.6 37.0-80.0 % Lymphocytes (%) (Auto) 23.5 10.0-50.0 % Monocytes (%) (Auto) 6.5 0.0-12.0 % Eosinophils (%) (Auto) 4.9 0.0-7.0 % Basophils (%) (Auto) 0.5 0.0-2.0 % Neutrophils # (Auto) 5.6 1.6-8.6 10 ^3/uL Lymphocytes # (Auto) 2.0 0.4-5.4 10 ^3/uL Monocytes # (Auto) 0.6 0-1.3 10 ^3/uL Eosinophils # (Auto) 0.4 0-0.8 10 ^3/uL Basophils # (Auto) 0 0-0.2 10 ^3/uL Nucleated Red Blood Cells 0.0 % Sodium Level 143 136-145 mmol/L Potassium Level 3.8 3.5-5.1 mmol/L Chloride Level 107 98-107 mmol/L Carbon Dioxide Level 28 20-31 mmol/L Anion Gap 8 5-15 Blood Urea Nitrogen 12 9-23 mg/dL Creatinine 0.98 0.700-1.30 mg/dL Glomerular Filtration Rate Calc 90 >90 mL/min BUN/Creatinine Ratio 12.2 10.0-20.0 Serum Glucose 107 H 74-106 mg/dL Calcium Level 10.0 8.7-10.4 mg/dL Total Bilirubin 0.3 0.2-1.0 mg/dL Aspartate Amino Transferase (AST) 19 13-40 U/L Alanine Aminotransferase (ALT) 17 7-40 U/L Alkaline Phosphatase 79 46-116 U/L Total Protein 6.6 5.7-8.2 g/dL Albumin 4.7 3.2-4.8 g/dL Current Medications Medications (Trade) Dose Ordered Sig/Niru Route Start Time Stop Time Status Last Admin Nitroglycerin (Ntrostat Sublingual) 0.4 mg ONCE ONCE SL 06/27/24 14:15 06/27/24 14:16 DC 06/27/24 14:26 Heparin Sodium (Porcine) 5,000 units ONCE ONCE IV 06/27/24 15:15 06/27/24 15:16 DC 06/27/24 15:14 Aspirin 324 mg ONCE ONCE PO 06/27/24 15:15 06/27/24 15:16 DC 06/27/24 15:15 [place] [id number] Ph: [phone] DIAGNOSTIC IMAGING Diagnostic Imaging Report : [id number] Signed PATIENT: JERRY TORRES ACCT: [id number] UNIT: [id number] : 1965 LOC: ER ROOM / BED: / AGE / SEX: 59 / M ADM STATUS: REG ER SERVICE 1406 ORDERING PHYSICIAN: LU LAMAR MD PROCEDURE(s): CXR2 - CHEST TWO VIEWS ROUTINE REASON: chest pain ORDER NUMBER(s): [id number], ACCESSION NUMBER(s): [id number] XY CHEST TWO VIEWS ROUTINE CLINICAL HISTORY: chest pain COMPARISON: None TECHNIQUE: Frontal and lateral view of the chest was obtained FINDINGS: Lines and Tubes: None Lungs: Increased interstitial markings right base may represent infiltrate. Pleura: No effusion. No pneumothorax. Cardiomediastinal contours: Unremarkable Bones: No acute osseous abnormality. IMPRESSION: 1. Possible interstitial infiltrate right base. ATED BY: RIA PELAEZ Jr., DO DICTATED DATE/TIME: 06/27/241435 SIGNED BY: RIA PELAEZ Jr., SIGNED DATE/TIME: 06/27/24 143 CC: 59-year-old male presents here with chest tightness. Patient was immediately seen by myself upon his arrival to the ER as the nursing staff immediately presented me his EKG as it was concerning for acute MS. I immediately saw the patient. Patient advised that he has been having chest tightness on and off for a month but became constant today. I immediately contacted Dr. Bardales the rn or lvn on-call who reviewed the EKG and was not certain that this was an acute STEMI. He asked that we give the patient 2 nitroglycerin and see how he does also he advised to repeat EKG in 15 minutes. Patient has been given nitroglycerin which did help resolve his pain. Additionally repeat EKG 15 minutes later was unchanged from previous. At this time 1st troponin has returned at [address] Bardales has a advised we start him on heparin and give him aspirin p.o. which I have done. He advised that we contact the cardiology nurse practitioner for consult. At this time patient is wishing to leave against medical advice. I have had a long discussion with the patient and he is agreeable to staying. Hospitalist team has been contacted for admission. Time of 1ST Reevaluation: 14:50 Reevaluation 1ST: Unchanged Patient Education/Counseling: Diagnosis, Treatment, Prognosis, Need For Follow Up Family Education/Counseling: No Family Present Departure 1 Departure Time of Disposition: 15:41 Impression: Primary Impression: NSTEMI (non-ST elevated myocardial infarction) Disposition: ADMITTED INPATIENT Condition: Guarded Referrals: CHESTER BARDALES Sr., MD Critical Care Note Critical Care Time?: Yes (1 hr-critical care time only) Critical care comment: EKG was initially brought to myself by nursing staff. I immediately evaluated the patient. Time spent speaking to rn or lvn multiple times, evaluating multiple EKGs, multiple reassessments of the patient, coordinating patient's care. Concern for acute STEMI and immediate cardiac deterioration. Stability Stability form required: No Heart Score Heart Score: Heart Score Response (Comments) Value History Highly Suspicious [address]-Deviation 2 Age 45-64 1 Risk Factors >3 or Hx ASHD 2 Troponin >3 x's Normal limit 2 Total 9 I personally scribed for LU LAMAR MD ([email or web address]) on 06/27/24 at 14:32. Electronically submitted by Alejandra Tolbert ([email or web address]). I personally scribed for LU LAMAR MD ([email or web address]) on 06/27/24 at 14:41. Electronically submitted by Alejandra Tolbert ([email or web address]). LU LAMAR MD June 27, 2024 14:32
--- NOTE | 2024-06-27 14:38 | DVH ---
XY CHEST TWO VIEWS ROUTINE CLINICAL HISTORY: chest pain COMPARISON: None TECHNIQUE: Frontal and lateral view of the chest was obtained FINDINGS: Lines and Tubes: None Lungs: Increased interstitial markings right base may represent infiltrate. Pleura: No effusion. No pneumothorax. Cardiomediastinal contours: Unremarkable Bones: No acute osseous abnormality. IMPRESSION: 1. Possible interstitial infiltrate right base.
[2024-06-27] MEDS: HEPARIN SODIUM (PORCINE) 5000 UNITS/ML 1ML VIAL IV ONE (15:14)
[2024-06-27] MEDS: ASPirin 325 MG TAB PO ONE (15:15)
[2024-06-27 18:48] LABS: Cholesterol 166 mg/dL (< 200); HDL Cholesterol 40 mg/dL (40-59); LDL Cholesterol 100 mg/dL (< 100); Triglycerides 230 mg/dL (< 150)
--- NOTE | 2024-06-27 18:51 | DVHINCON2 ---
Date Seen: June 27, [address] Nielsen Reason for Consultation Chest pain History of Present Illness This 59-year-old male presents in the ED with a chief complaint of chest tightness. The patient reports localized chest tightness started this morning after a bike ride and while doing hub borer. In the emergency department, the patient underwent a 12 lead ECG revealing normal sinus rhythm with RBBB and LBBB and serial troponin are negative. Upon assessment, the patient denies dizziness, diaphoresis, chest pain, shortness of breath, or dyspnea. The patient admits to tobacco use one pack per day for 20 years and ex meth and marijuana use. Patient reports been sober since January 2024. Significant past medical history of hypertension, hyperlipidemia, gout, possible prostate cancer pending biopsy results. Past Medical History As stated in HPI Past Surgical History Neck surgery Umbilical hernia Family History Reviewed, non-contributory to the management of this case. Social History Admits to tobacco use one pack per day Denies current use of illicit drug Allergies: Coded Allergies: NO KNOWN ALLERGIES (Unverified , 12/21/23) Home Meds Active Scripts Docusate Sodium (Colace) 100 Mg Cap, 1 CAP PO BID, #30 CAP Prov:BENEDICT PADILLA MD 01/08/24 Polyethylene Glycol 3350 (Miralax) 17 Gm Pow, 17 GM PO DAILYP PRN for 7 Days, #1 POW Prov:GANESH MARINA RESIDENT 12/23/23 Docusate Sodium (Docusate Sodium) 100 Mg Cap, 100 MG PO BIDPRN PRN for 7 Days, #14 CAP Prov:GANESH MARINA RESIDENT 12/23/23 Fluconazole (Diflucan) 200 Mg Tab, 1 TAB PO DAILY, #7 TAB Prov:GANESH MARINA RESIDENT 12/23/23 Review of Systems Constitutional: No symptom reported Ears, Nose, & Throat: No symptom reported Eyes: No symptom reported Neurological: No symptoms reported Pulmonary/Respiratory: No symptom reported Cardiovascular: Chest tightness Gastrointestinal: No symptom reported Genitourinary: No symptom reported Musculoskeletal: No symptom reported Skin: No symptom reported Psychiatric: No symptom reported Endocrine: No symptom reported Hematologic/Lymphatic: No symptom reported Vital Signs Vital Signs Date Time Temp Pulse Resp B/P (MAP) Pulse Ox O2 Delivery O2 Flow Rate FiO2 06/27/24 18:00 67 16 139/90 (106) 98 06/27/24 14:29 Room Air* 0 21 06/27/24 13:51 99.3 99.3 Physical Exam INITIAL VITAL SIGNS: Reviewed by me GENERAL: Alert and interactive. No acute distress. HEAD: Head is normocephalic and atraumatic. EYES: EOMI, PERRL. No scleral icterus. No conjunctival injection. ENT: Moist mucous membranes. NECK: Supple, No masses, Full range of motion. RESPIRATORY: No tachypnea. Clear breath sounds bilaterally. No wheezing, rales, rhonchi. CV: Regular rate and rhythm. RBBB, LBBB, no dyspnea no orthopnea, no edema GI/: Active bowel sounds, soft, nondistended, nontender. No guarding. No rebound. No masses. No CVA tenderness. INTEGUMENTARY: Warm and dry. No obvious rashes. NEUROLOGIC: Alert and oriented. Face is symmetric. Speech is normal. Moves all extremities equally. Labs/Diagnostic Data Labs Test 06/27/24 14:58 06/27/24 13:58 Range/Units Troponin I High Sensitivity 6 </=54 ng/L White Blood Count 8.7 4.4-10.8 10^3/uL Red Blood Count 4.55 4.5-5.90 10^6/uL Hemoglobin 14.4 13.5-17.5 g/dL Hematocrit 42.4 41.0-53.0 % Mean Corpuscular Volume 93.2 80.0-100.0 fL Mean Corpuscular Hemoglobin 31.7 28.0-32.0 pg Mean Corpuscular Hemoglobin Concent 34.0 32.0-36.0 g/dL Red Cell Distribution Width 14.6 H 11.8-14.3 % Platelet Count 298 140-450 10^3/uL Mean Platelet Volume 7.2 6.9-10.8 fL Neutrophils (%) (Auto) 64.6 37.0-80.0 % Lymphocytes (%) (Auto) 23.5 10.0-50.0 % Monocytes (%) (Auto) 6.5 0.0-12.0 % Eosinophils (%) (Auto) 4.9 0.0-7.0 % Basophils (%) (Auto) 0.5 0.0-2.0 % Neutrophils # (Auto) 5.6 1.6-8.6 10 ^3/uL Lymphocytes # (Auto) 2.0 0.4-5.4 10 ^3/uL Monocytes # (Auto) 0.6 0-1.3 10 ^3/uL Eosinophils # (Auto) 0.4 0-0.8 10 ^3/uL Basophils # (Auto) 0 0-0.2 10 ^3/uL Nucleated Red Blood Cells 0.0 % Sodium Level 143 136-145 mmol/L Potassium Level 3.8 3.5-5.1 mmol/L Chloride Level 107 98-107 mmol/L Carbon Dioxide Level 28 20-31 mmol/L Anion Gap 8 5-15 Blood Urea Nitrogen 12 9-23 mg/dL Creatinine 0.98 0.700-1.30 mg/dL Glomerular Filtration Rate Calc 90 >90 mL/min BUN/Creatinine Ratio 12.2 10.0-20.0 Serum Glucose 107 H 74-106 mg/dL Calcium Level 10.0 8.7-10.4 mg/dL Total Bilirubin 0.3 0.2-1.0 mg/dL Aspartate Amino Transferase (AST) 19 13-40 U/L Alanine Aminotransferase (ALT) 17 7-40 U/L Alkaline Phosphatase 79 46-116 U/L Total Protein 6.6 5.7-8.2 g/dL Albumin 4.7 3.2-4.8 g/dL PROCEDURE(s): CXR2 - CHEST TWO VIEWS ROUTINE REASON: chest pain ORDER NUMBER(s): [id number], ACCESSION NUMBER(s): [id number] XY CHEST TWO VIEWS ROUTINE CLINICAL HISTORY: chest pain COMPARISON: None TECHNIQUE: Frontal and lateral view of the chest was obtained FINDINGS: Lines and Tubes: None Lungs: Increased interstitial markings right base may represent infiltrate. Pleura: No effusion. No pneumothorax. Cardiomediastinal contours: Unremarkable Bones: No acute osseous abnormality. IMPRESSION: 1. Possible interstitial infiltrate right base. Assessment Acute chest pain to rule out CAD Hypertension Hyperlipidemia Tobacco dependence Ex-amphetamine and marijuana use Plan/Recommendation (Dr. Bardales ): * Scheduled for stress test tomorrow 06/28/24 * Heart Score 5, low BREE Risk Index 16 * Echocardiogram to evaluate cardiac function * Chest pain protocol * Monitor EKG * Nicotine patch- Smoking cessation counseled This medical document was created using an electronic medical record system with voice recognition software and computerized dictation system. Although this document has been carefully reviewed, there might still be some phonetic and typographical errors. Occasional wrong-word or ``sound-alike substitutions may have occurred due to the inherent limitations of voice recognition software. These areas are purely typographical due to imperfections of the software programs and do not reflect any compromise in the patient's medical care. Please read the chart carefully and recognize, using context, where these substi tutions have occurred. Plan discussed with: Patient Plan discussed with: Patient NYHA Physical activity limitations: NA Date of Service: June 27, 2024 Billing Provider: CHESTER BARDALES Sr., MD Cardiology Common Codes: CONSULT ONLY Cardiology Consultation Codes: 63131-LLIBVDQRN CONSULT <45MIN PADMAJA CANDELARIA PHARMACEUTICAL OPERATOR June 27, 2024 18:51
[2024-06-27 18:54] LABS: INR 0.97 (0.9-1.15); Partial Thromboplastin Time 27.8 SEC (24.5-34.5); Prothrombin Time 10.3 sec (9.3-11.8)
[2024-06-27] MEDS: NICOTINE 14 MG/24HR TOPICAL PATCH TD ONE (19:03)
[2024-06-27] MEDS ORDERED: ONDANSETRON HCL 4 MG/2 ML VIAL IV PRN (19:30)
[2024-06-27] MEDS ORDERED: NITROGLYCERIN 0.4 MG SL TAB SL PRN (19:30)
[2024-06-27] MEDS ORDERED: MORPHINE SULFATE INJ 2 MG/ml SYRG IV PRN (19:30)
[2024-06-27 19:40] VITALS: PULSE 68; RESP 19; O2SAT 99
--- NOTE | 2024-06-27 20:52 | DVHHP2 ---
History of Present Illness Reason for Visit: Chest pain History of Present Illness 59-year-old male presents for evaluation of chest pain. He states having chest pressure for approximately one-week. Today while riding his bike the pain became more constant so he stopped by to be evaluated at the hospital. Denies nausea or vomiting. No shortness a breath. Past Medical History Hypertension, dyslipidemia, gout, BPH Past Surgical History Denies Family History Cancer Smoke: <1 pack per day ALCOHOL: none Drugs: Other (History of methamphetamine use) Review of Systems Review of Systems Review of systems are currently negative otherwise addressed in HPI. Allergies: Coded Allergies: NO KNOWN ALLERGIES (Unverified , 12/21/23) Medications Current Medications Medications Dose Ordered Sig/Niru Route Start Time Stop Time Status Last Admin Dose Admin Aspirin 81 mg DAILY PO 06/28/24 10:00 Atorvastatin Calcium 40 mg HS PO 06/27/24 22:00 Nicotine 1 patch DAILY TD 06/28/24 10:00 Amlodipine Besylate 5 mg DAILY PO 06/28/24 10:00 Ondansetron HCl 4 mg Q4HP PRN IV 06/27/24 19:30 Nitroglycerin 0.4 mg Q5MINP PRN SL 06/27/24 19:30 Morphine Sulfate 2 mg Q30M PRN IV 06/27/24 19:30 Exam Vital Signs Vital Signs Date Time Temp Pulse Resp B/P (MAP) Pulse Ox O2 Delivery O2 Flow Rate FiO2 06/27/24 19:40 68 19 99 Room Air* 0 21 06/27/24 19:40 98.7 135/83 (100) 98.7 Exam Gen: 59-year-old male in no apparent distress. Skin: Warm, dry, normal color and texture, no rash. HEENT: Normocephalic atraumatic, mucous membranes moist and pink. Neck: Cervical and supraclavicular nodes normal without enlargement, trachea is midline, thyroid gland is normal without masses. Pulmonary: Clear to auscultation and percussion bilaterally. Cardiac: Regular rate and rhythm. No murmur Abdomen: Soft, nontender, nondistended, bowel sounds present all 4 quadrants, no guarding, no rigidity, no organomegaly. Extremities: No cyanosis, clubbing, no edema Neuro: Cranial nerves II through XII grossly intact, normal affect and speech, no focal motor deficits. Labs/Xrays ORDERING PHYSICIAN: LU LAMAR MD PROCEDURE(s): CXR2 - CHEST TWO VIEWS ROUTINE REASON: chest pain ORDER NUMBER(s): [id number], ACCESSION NUMBER(s): [id number] CHEST TWO VIEWS ROUTINE CLINICAL HISTORY: chest pain COMPARISON: None TECHNIQUE: Frontal and lateral view of the chest was obtained FINDINGS: Lines and Tubes: None Lungs: Increased interstitial markings right base may represent infiltrate. Pleura: No effusion. No pneumothorax. Cardiomediastinal contours: Unremarkable Bones: No acute osseous abnormality. IMPRESSION: 1. Possible interstitial infiltrate right base. Labs Test 06/27/24 14:58 06/27/24 13:58 Range/Units Troponin I High Sensitivity 6 </=54 ng/L White Blood Count 8.7 4.4-10.8 10^3/uL Red Blood Count 4.55 4.5-5.90 10^6/uL Hemoglobin 14.4 13.5-17.5 g/dL Hematocrit 42.4 41.0-53.0 % Mean Corpuscular Volume 93.2 80.0-100.0 fL Mean Corpuscular Hemoglobin 31.7 28.0-32.0 pg Mean Corpuscular Hemoglobin Concent 34.0 32.0-36.0 g/dL Red Cell Distribution Width 14.6 H 11.8-14.3 % Platelet Count 298 140-450 10^3/uL Mean Platelet Volume 7.2 6.9-10.8 fL Neutrophils (%) (Auto) 64.6 37.0-80.0 % Lymphocytes (%) (Auto) 23.5 10.0-50.0 % Monocytes (%) (Auto) 6.5 0.0-12.0 % Eosinophils (%) (Auto) 4.9 0.0-7.0 % Basophils (%) (Auto) 0.5 0.0-2.0 % Neutrophils # (Auto) 5.6 1.6-8.6 10 ^3/uL Lymphocytes # (Auto) 2.0 0.4-5.4 10 ^3/uL Monocytes # (Auto) 0.6 0-1.3 10 ^3/uL Eosinophils # (Auto) 0.4 0-0.8 10 ^3/uL Basophils # (Auto) 0 0-0.2 10 ^3/uL Nucleated Red Blood Cells 0.0 % Prothrombin Time 10.3 9.3-11.8 sec Prothrombin Time INR 0.97 0.9-1.15 Activated Partial Thromboplast Time 27.8 24.5-34.5 SEC Sodium Level 143 136-145 mmol/L Potassium Level 3.8 3.5-5.1 mmol/L Chloride Level 107 98-107 mmol/L Carbon Dioxide Level 28 20-31 mmol/L Anion Gap 8 5-15 Blood Urea Nitrogen 12 9-23 mg/dL Creatinine 0.98 0.700-1.30 mg/dL Glomerular Filtration Rate Calc 90 >90 mL/min BUN/Creatinine Ratio 12.2 10.0-20.0 Serum Glucose 107 H 74-106 mg/dL Hemoglobin A1c 5.0 <5.7 % A1C Calcium Level 10.0 8.7-10.4 mg/dL Total Bilirubin 0.3 0.2-1.0 mg/dL Aspartate Amino Transferase (AST) 19 13-40 U/L Alanine Aminotransferase (ALT) 17 7-40 U/L Alkaline Phosphatase 79 46-116 U/L Total Protein 6.6 5.7-8.2 g/dL Albumin 4.7 3.2-4.8 g/dL Triglycerides Level 230 H < 150 mg/dL Cholesterol Level 166 < 200 mg/dL LDL Cholesterol 100 H < 100 mg/dL HDL Cholesterol 40 40-59 mg/dL Thyroid Stimulating Hormone (TSH) 1.25 0.55-4.78 uIU/mL Assessment/Plan Assessment/Plan Assessment Chest pain rule out ACS Hypertension Plan Admit the patient to telemetry to the hospitalist NPO after midnight Cardiology consult, possible stress test tomorrow Continue treatment per orders. Plan discussed with: Patient My Orders Orders - BHAVANI FRANKCNYvette Procedure Category Date Status Time Amlodipine Tablet PHA 06/28/24 In Process (Norvasc Tablet) 10:00 Basic Metabolic Panel LAB 06/28/24 Verified 04:00 Condition: Fair MATTIE 06/27/24 In Process 19:23 Bedrest With Bathroom MATTIE 06/27/24 In Process Privileg 19:23 Nitroglycerin PHA 06/27/24 In Process Sublingual (Ntrostat 19:30 Morphine Sulfate PHA 06/27/24 In Process Injection 19:30 Stat Ekg For Chest MATTIE 06/27/24 In Process Pain 19:23 Notify Md Of Changes [facility] 06/27/24 In Process From Base 19:23 Banner Painter For [facility] 06/27/24 In Process 24 Hours 19:23 Emergency Dysrhythmia [facility] 06/27/24 In Process Protocol 19:23 Rhythm Strips Once [facility] 06/27/24 In Process Every Shift 19:23 Oxygen By Nasal RT 06/27/24 Transmitted Cannula 19:23 Admit ADMIT 06/27/24 Verified 19:23 Ondansetron Hcl PHA 06/27/24 In Process (Zofrcorinna) 19:30 Date of Service: June 27, 2024 Billing Provider: BHAVANI FRANK Common Visit Codes: [id number] INP/OBS CARE (HIGH) BHAVANI FRANK June 27, 2024 20:52
[2024-06-27 21:19] LABS: Urine Bacteria None Seen /hpf (None Seen)
[2024-06-27 21:27] LABS: Urine Blood TRACE /uL (Negative); Urine Clarity Clear (Clear); Urine Color Light-Yellow (Yellow); Urine Protein, UAD Negative (Negative); Urine Specific Gravity 1.006 (1.001-1.035); Urine Squamous Epithelial Cell None Seen /hpf (<5); Urine Urobilinogen Normal (Negative); Urine WBC 2 /HPF (0-3); Urine pH 6.5 (5.0-9.0)
[2024-06-27 21:46] VITALS: BP 109/76; PULSE 67; RESP 18; TEMP 97.6; O2SAT 95
[2024-06-27 21:48] LABS: Amphetamine Screen, Urine Neg (NEGATIVE); Barbiturate Scree,Urine Neg (NEGATIVE); Benzodiazephine Screen, Urine Neg (NEGATIVE); Cannabinoid Screen, Urine Neg (NEGATIVE); Cocaine Screen, Urine Neg (NEGATIVE); Opiate Scree,Urine Neg (NEGATIVE); Phencyclidine Screen, Urine Neg (NEGATIVE)
[2024-06-27] MEDS: ATORVASTATIN 20 MG TAB PO SCH (21:57)
[2024-06-27] MEDS ORDERED: TAMS0.4C39 PO (22:15)
[2024-06-27] MEDS ORDERED: AMLO1TAB22 PO (22:15)
[2024-06-27] MEDS ORDERED: ATOR20TA50 PO (22:15)
[2024-06-27] MEDS ORDERED: ALLO100T PO (22:15)
[2024-06-27] MEDS: diphenhdrAMINE HCL 25 MG CAP PO ONE (22:46)
[2024-06-28] VITALS (8 sets, daily range): BP systolic 109–138; BP diastolic 76–94; PULSE 63–75; RESP 16–18; TEMP 97.6–98; O2SAT 95–98
[2024-06-28 06:40] LABS: Potassium 3.9 mmol/L (3.5-5.1); Sodium 142 mmol/L (136-145)
[2024-06-28 06:41] LABS: Anion Gap 8 (5-15); Carbon Dioxide 26 mmol/L (20-31)
[2024-06-28 06:44] LABS: Chloride 108 mmol/L (98-107)
[2024-06-28 06:46] LABS: BUN/Creatinine Ratio 14.3 (10.0-20.0); Blood Urea Nitrogen 12 mg/dL (9-23); Glucose 100 mg/dL (74-106)
[2024-06-28] MEDS: REGADENOSON 0.4 MG/5 ML SYRG IV ONE (08:10)
[2024-06-28] MEDS: NICOTINE 14 MG/24HR TOPICAL PATCH TD SCH (10:32)
[2024-06-28] MEDS: ASPirin 81 mg TAB PO SCH (10:33)
[2024-06-28] MEDS: amLODIPine BESYLATE 5 MG TAB PO SCH (10:37)
--- NOTE | 2024-06-28 10:38 | ECG ---
[facility] Test Date: 2024-06-27 Test Time: 16:07:10 Pat Name: JERRY TORRES Department: ED Room: 0214T Gender: M Limited Radiology Technician: ADDY : 1965 Requested By: CONSTANCE FRIAS Order Number: [id number] Reading MD: Measurements Intervals [place] Rate: 62 P: 49 UT: 162 QRS: 107 QRSD: 135 T: 55 QT: 407 QTc: 414 Interpretive Statements Sinus rhythm RBBB and LPFB ST elevation suggests acute pericarditis Please click the below link to view image of tracing.
--- NOTE | 2024-06-28 11:12 | DVHPNRES ---
Progress Note Date Seen: June 28, 2024 Resident Creating Document: HERLINDA BOLANOS RESIDENT Has the PT tested + for MRSA If YES, has PT been informed?: No Medical Necessity Reason Pt with a Central, PICC or Fol: No Subjective Review of Systems Michael Meyer is a 59-year-old male with a PMH of HTN, HLD, gout, possible prostatic cancer presented to the ED with the chief complaints of chest tightness. Patient reported he has been having on and off chest discomfort for 1 week, he also reported he has been having lot of stress which is triggering he has been but no relieving, no associated factors. 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 In the emergency department, the patient underwent a 12 lead ECG revealing normal sinus rhythm with RBBB and LBBB and serial troponin are negative. Patient reported that he has been taking 1 pack per day cigarettes but denies other abuse Patient seen and examined at the bedside. no active complaints today. Stress test today. Patient reports: Feels better Objective vital signs Vital Sign Date Time Temp Pulse Resp B/P (MAP) Pulse Ox O2 Delivery O2 Flow Rate FiO2 06/28/24 10:37 130/92 06/28/24 08:35 97.7 64 18 97 97.7 06/27/24 21:46 Room Air* 0 21 Total Intake and Output 06/27/24 06/27/24 06/28/24 15:00 23:00 07:00 Intake Total 1 ml Balance 1 ml medications Current Medications Medications Dose Ordered Sig/Niru Route Start Time Stop Time Status Last Admin Dose Admin Aspirin 81 mg DAILY PO 06/28/24 10:00 06/28/24 10:33 81 MG Atorvastatin Calcium 40 mg HS PO 06/27/24 22:00 06/27/24 21:57 40 MG Nicotine 1 patch DAILY TD 06/28/24 10:00 06/28/24 10:32 1 PATCH Amlodipine Besylate 5 mg DAILY PO 06/28/24 10:00 06/28/24 10:37 5 MG Ondansetron HCl 4 mg Q4HP PRN IV 06/27/24 19:30 Nitroglycerin 0.4 mg Q5MINP PRN SL 06/27/24 19:30 Morphine Sulfate 2 mg Q30M PRN IV 06/27/24 19:30 Examination Pt is lying on bed General Appearance: Alert, Oriented X3, Cooperative, Not in acute distress HEENT: Atraumatic, Mucous membranes moist/pink Respiratory: Clear to auscultation, Normal air movement, No added sounds Cardiovascular: Regular rate, Normal S1, Normal S2, No murmurs Abdominal: Active bowel sounds, Soft, no distention, no tenderness Extremities: No edema, Normal pulses, No tenderness/swelling Skin: No Significant rash, except past surgical scars Neuro: Normal speech, sensorimotor deficits none Psych/Mental Status: Mental status NL, Mood NL Nurse was there as sharperone during examination laboratory and microbiology Laboratory Tests 06/28/24 04:56 06/27/24 13:58 Test 06/28/24 04:56 Range/Units Serum Glucose 100 74-106 mg/dL Labs and/or images reviewed: Labs reviewed by me, Image(s) reviewed by me Problem List/Assessment/Plan Problem List/Assessment/Plan #Chest pain rule out ACS # HTN # HLD - chest pain protocol with aspirin, nitroglycerin, morphine - cardiology consult - EKG normal sinus rhythm and troponins were negative - stress test today - Heart Score 5, low BREE Risk Index 16 - Echocardiogram to evaluate cardiac function - continue amlodipine 4 mg for HTN - Lipitor 40 mg # tobacco abuse disorder/ dependence- nicotine patch # Ex-amphetamine and marijuana use- counseled regarding cessation for 17 minutes # Gout- continue allopurinol No GI PPX needed as of now SCDs for now Cardiac diet Goals of care discussed with the patient for more than 29 minutes: Full code status Case discussed with Dr. Mcclain, patient and nurse Plan discussed with: Patient My Orders My Orders Orders - HERLINDA BOLANOS RESIDENT Procedure Category Date Status Time Cardiac DIET 06/28/24 Transmitted Diet-2gna,Lofat,Lochol Lunch Allopurinol Tablet PHA 06/29/24 Logged (Zyloprim Tablet) 10:00 Tamsulosin PHA 06/29/24 Logged Hydrochloride (Flomax) 10:00 HERLINDA BOLANOS RESIDENT June 28, 2024 11:11
--- NOTE | 2024-06-28 11:31 | DVHSR ---
APPROVED REPORT Exam: Nuclear Stress Test BMI: 0 Stress Test Details HR Max Heart Rate (APMHR): 163.462707 bpm Target HR (85% APMHR): 138.319971 bpm BP ECG Stress ECG Conclusion lvef 51% inferoseptal infarct and inferior infarct fixed defect noted NM EXAM: Myocardial Perfusion REST/STRESS Imaging Protocol: Rest Tc-99m/Stress Tc-99m 1 day Resting Data Rest SPECT myocardial perfusion imaging was performed in supine position 45 minutes following the int ravenous injection of 8.5 mCi of Tc-99m Sestamibi. Time of rest injection: 08:05 Date: 06/28/2024 Time of rest imagin:50 Date: 06/28/2024 Administration Route: IV Administration Site: Right Arm Pharmacologic Stress Pharmacologic stress test was performed by injecting Regadenoson 0.4 mg IV push followed by the intra venous injection of 30.0 mCi of Tc-99m Sestamibi. Time of stress injection: 09:45 Date: 06/28/2024 Time of stress imagin:30 Date: 06/28/2024 Administration Route: IV Administration Site: Right Arm Gated Stress SPECT was performed 60 minutes after stress injection. The images were gated to evaluate regional wall motion and calculate left ventricular ejection fracti on. Stress only was performed in the Supine position. Nuclear Conclusion Nuclear Findings: negative for ischemia lvef 51% inferoseptal infarct and inferior infarct fixed defect noted
--- NOTE | 2024-06-28 12:55 | ECG ---
[facility] Test Date: 2024-06-27 Test Time: 14:29:38 Pat Name: JERRY TORRES Department: ER Room: 0214T Gender: M Med Aide: PRECIOUS : 1965 Requested By: CONSTANCE FRIAS Order Number: [id number] Reading MD: Measurements Intervals [place] Rate: 77 P: 72 DE: 148 QRS: 124 QRSD: 143 T: 53 QT: 404 QTc: 458 Interpretive Statements Sinus rhythm RBBB and LPFB Inferior infarct, acute Lateral leads are also involved Please click the below link to view image of tracing.
--- NOTE | 2024-06-28 19:00 | ECG ---
[facility] Test Date: 2024-06-27 Test Time: 13:57:34 Pat Name: JERRY TORRES Department: ED Room: 0214T Gender: M Weigher Packing: carlotta : 1965 Requested By: CONSTANCE FRIAS Order Number: [id number] Reading MD: Measurements Intervals [place] Rate: 78 P: 66 MT: 155 QRS: 170 QRSD: 133 T: 51 QT: 395 QTc: 450 Interpretive Statements Sinus rhythm RBBB and LPFB Inferior infarct, acute ST elevation, consider anterolateral injury Please click the below link to view image of tracing.
[2024-06-28] MEDS: ACETAMINOPHEN 325 MG TAB PO PRN (21:17)
[2024-06-28] MEDS: diphenhdrAMINE HCL 25 MG CAP PO ONE (21:18)
[2024-06-29 05:00] VITALS: BP 123/88; PULSE 66; RESP 16; TEMP 97.6; O2SAT 96
[2024-06-29 05:39] LABS: Basophils # (auto) 0.1 10 ^3/uL (0-0.2); Basophils % (auto) 0.8 % (0.0-2.0); Eosinophils # (auto) 0.6 10 ^3/uL (0-0.8); Eosinophils % (auto) 6.9 % (0.0-7.0); Hematocrit 43.7 % (41.0-53.0); Hemoglobin 14.9 g/dL (13.5-17.5); Lymphocytes # (auto) 2.3 10 ^3/uL (0.4-5.4); Lymphocytes % (auto) 27.4 % (10.0-50.0); Mean Corpuscular Hemoglobin 31.6 pg (28.0-32.0); Mean Corpuscular Hgb Conc. 34.1 g/dL (32.0-36.0); Mean Corpuscular Volume 92.9 fL (80.0-100.0); Monocytes # (auto) 0.7 10 ^3/uL (0-1.3); Monocytes % (auto) 7.7 % (0.0-12.0); Neutrophils # (auto) 4.8 10 ^3/uL (1.6-8.6); Neutrophils % (auto) 57.2 % (37.0-80.0); Platelet Count (auto) 296 10^3/uL (140-450); Red Blood Cells 4.71 10^6/uL (4.5-5.90); Red Cell Distribution Width 14.3 % (11.8-14.3); White Blood Cell 8.5 10^3/uL (4.4-10.8)
[2024-06-29 05:44] LABS: Chloride 104 mmol/L (98-107); Sodium 141 mmol/L (136-145)
[2024-06-29 05:45] LABS: Anion Gap 7 (5-15); Calcium 9.3 mg/dL (8.7-10.4); Carbon Dioxide 30 mmol/L (20-31)
[2024-06-29 05:50] LABS: Glucose 96 mg/dL (74-106)
[2024-06-29 05:51] LABS: BUN/Creatinine Ratio 10.6 (10.0-20.0); Blood Urea Nitrogen 9 mg/dL (9-23)
[2024-06-29 05:52] LABS: Magnesium 2.1 mg/dL (1.6-2.6)
[2024-06-29] MEDS ORDERED: REGADENOSON 0.4 MG/5 ML SYRG IV ONE (07:45)
[2024-06-29 08:00] VITALS: PULSE 58; PULSE 60; RESP 16; O2SAT 96
[2024-06-29 08:15] VITALS: BP 131/93; PULSE 63; RESP 16
[2024-06-29] MEDS: REGADENOSON 0.4 MG/5 ML SYRG IV ONE (08:17)
[2024-06-29 09:17] VITALS: BP 123/88; PULSE 60; RESP 20; TEMP 97.9; O2SAT 96
[2024-06-29] MEDS: ALLOPURINOL 100 MG TAB PO SCH (09:52)
[2024-06-29] MEDS: TAMSULOSIN HYDROCHLORIDE 0.4 MG CAP PO SCH (09:52)
--- NOTE | 2024-06-29 11:35 | DVHSR ---
APPROVED REPORT EXAM: Two-dimensional and M-mode echocardiogram with Doppler and color Doppler. Blood Pressure: 132/89 mmHg INDICATION R/O CAD RISK FACTORS Height: 5'6", Weight: 157 DIMENSIONS LVDd5.0 (3.8-5.7cm)LA (2D)4.8 (1.9-4.0cm)Aortic Root4.1 (2.0-3.7cm) LVDs3.4 (2.5-4.0cm)LA (MM) (1.9-4.0cm)Aortic Cusp Exc2.0 (1.5-2.0cm) EF (%) 60.0 (55-70%)Rt. Atrium5.2 (1.9-4.0cm)Asc. Aorta cm IVSd1.0 (0.7-1.1cm)RV (D)4.5 (1.8-2.4cm) PWd1.0 (0.7-1.1cm) Mitral Valve MitralMitral Stenosis E wave0.67m/sMV Mean GR.mmHg A wave0.71m/sMV Peak GR.mmHg E/A ratio0.92D MVAcm2 DECEL [id number] 1/2 [place] Aortic Valve Aortic ValveAortic Stenosis V11.04m/Daphnie Mean GR.5mmHg V21.56m/Daphnie Peak GR.10mmHg LVOT Diameter2.3 (1.8-2.4cm)Doppler AVA2.77cm2 Tricuspid Valve TR Velocity2.39m/s [id number] Other Information Technically limited study due to body habitus. Conclusion lvef 65% normal lv function normal rv function, probable enlarged left atrium enlarged mild no severe valve abnormalities noted
[2024-06-29] MEDS ORDERED: ATOR20TA50 PO ×2 (12:35→16:22)
[2024-06-29] MEDS ORDERED: ASPI-325 PO ×2 (12:35→16:22)
[2024-06-29] MEDS ORDERED: NITR0.4S29 SL ×2 (12:35→16:22)
[2024-06-29 12:51] VITALS: BP 122/89; PULSE 62; RESP 19; TEMP 97.9; O2SAT 97
--- NOTE | 2024-06-29 14:03 | DVHDSRES ---
Discharge Summary Date of Admission Resident Creating Document: HERLINDA BOLANOS RESIDENT June 27, 2024 at 19:23 Date of Discharge: June 29, 2024 Admitting Diagnosis Chest pain Labs/Diagnostic Data: Laboratory Results Test 06/29/24 04:58 06/27/24 21:16 06/27/24 14:58 06/27/24 13:58 White Blood Count 8.5 10^3/uL (4.4-10.8) Red Blood Count 4.71 10^6/uL (4.5-5.90) Hemoglobin 14.9 g/dL (13.5-17.5) Hematocrit 43.7 % (41.0-53.0) Mean Corpuscular Volume 92.9 fL (80.0-100.0) Mean Corpuscular Hemoglobin 31.6 pg (28.0-32.0) Mean Corpuscular Hemoglobin Concent 34.1 g/dL (32.0-36.0) Red Cell Distribution Width 14.3 % (11.8-14.3) Platelet Count 296 10^3/uL (140-450) Mean Platelet Volume 7.4 fL (6.9-10.8) Neutrophils (%) (Auto) 57.2 % (37.0-80.0) Lymphocytes (%) (Auto) 27.4 % (10.0-50.0) Monocytes (%) (Auto) 7.7 % (0.0-12.0) Eosinophils (%) (Auto) 6.9 % (0.0-7.0) Basophils (%) (Auto) 0.8 % (0.0-2.0) Neutrophils # (Auto) 4.8 10 ^3/uL (1.6-8.6) Lymphocytes # (Auto) 2.3 10 ^3/uL (0.4-5.4) Monocytes # (Auto) 0.7 10 ^3/uL (0-1.3) Eosinophils # (Auto) 0.6 10 ^3/uL (0-0.8) Basophils # (Auto) 0.1 10 ^3/uL (0-0.2) Nucleated Red Blood Cells 0.0 % Sodium Level 141 mmol/L (136-145) Potassium Level 4.0 mmol/L (3.5-5.1) Chloride Level 104 mmol/L (98-107) Carbon Dioxide Level 30 mmol/L (20-31) Anion Gap 7 (5-15) Blood Urea Nitrogen 9 mg/dL (9-23) Creatinine 0.85 mg/dL (0.700-1.30) Glomerular Filtration Rate Calc 101 mL/min (>90) BUN/Creatinine Ratio 10.6 (10.0-20.0) Serum Glucose 96 mg/dL (74-106) Calcium Level 9.3 mg/dL (8.7-10.4) Magnesium Level 2.1 mg/dL (1.6-2.6) Urine Color Light-yellow (Yellow) Urine Clarity Clear (Clear) Urine pH 6.5 (5.0-9.0) Urine Specific [place] 1.006 (1.001-1.035) Urine Protein Negative (Negative) Urine Ketones Negative (Negative) Urine Blood Trace /uL (Negative) Urine Nitrite Negative (Negative) Urine Bilirubin Negative (Negative) Urine Urobilinogen Normal mg/dL (Negative) Urine Leukocyte Esterase Trace /uL (Negative) Urine RBC 1 /hpf (0 - 3) Urine Microscopic WBC 2 /HPF (0-3) Urine Squamous Epithelial Cells None seen /hpf (<5) Urine Bacteria None seen /hpf (None Seen) Urine Glucose Normal mg/dL (Normal) Urine Opiates Screen Neg (NEGATIVE) Urine Fentanyl Screen Neg (NEGATIVE) Urine Barbiturates Screen Neg (NEGATIVE) Urine Phencyclidine Screen Neg (NEGATIVE) Urine Amphetamines Screen Neg (NEGATIVE) Urine Benzodiazepines Screen Neg (NEGATIVE) Urine Cocaine Screen Neg (NEGATIVE) Urine Cannabinoids Screen Neg (NEGATIVE) Troponin I High Sensitivity 6 ng/L (</=54) Prothrombin Time 10.3 sec (9.3-11.8) Prothrombin Time INR 0.97 (0.9-1.15) Activated Partial Thromboplast Time 27.8 SEC (24.5-34.5) Hemoglobin A1c 5.0 % A1C (<5.7) Total Bilirubin 0.3 mg/dL (0.2-1.0) Aspartate Amino Transferase (AST) 19 U/L (13-40) Alanine Aminotransferase (ALT) 17 U/L (7-40) Alkaline Phosphatase 79 U/L (46-116) Total Protein 6.6 g/dL (5.7-8.2) Albumin 4.7 g/dL (3.2-4.8) Triglycerides Level 230 mg/dL (< 150) Cholesterol Level 166 mg/dL (< 200) LDL Cholesterol 100 mg/dL (< 100) HDL Cholesterol 40 mg/dL (40-59) Thyroid Stimulating Hormone (TSH) 1.25 uIU/mL (0.55-4.78) Other Laboratory Tests 06/29/24 04:58 Brief Hx & Hospital Course: Michael Meyer is a 59-year-old male with a past medical history of hypertension, hyperlipidemia, gout, and possible prostate cancer who presented to the emergency department with complaints of chest tightness. He reported experiencing intermittent chest discomfort over the past week, which he attributed to significant stress. The discomfort had no clear relieving or associated factors. 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 In the emergency department, a 12-lead ECG showed normal sinus rhythm with findings of both right and left bundle branch blocks. Serial troponin levels were negative. The patient also disclosed a history of smoking one pack of cigarettes per day but denied any other substance use. Michael Meyer was admitted for evaluation of chest pain to rule out acute coronary syndrome (ACS). He was managed under the chest pain protocol, which included administration of aspirin, nitroglycerin, and morphine. A cardiology consultation was obtained. His initial electrocardiogram (EKG) showed normal sinus rhythm, and serial troponin levels were negative. A nuclear stress test was performed, which was negative for ischemia; however, fixed defects were noted in the inferoseptal and inferior luke, consistent with prior infarcts. The left ventricular ejection fraction (LVEF) on nuclear imaging was 51%. An echocardiogram was also obtained, revealing normal left ventricular function with an LVEF of 65%. His HEART score was 5, and his BREE risk index was low at 16. The patient has a history of hypertension and hyperlipidemia, for which he will continue amlodipine 5 mg daily and atorvastatin (Lipitor) 40 mg daily, respectively. He also has a history of gout and will continue allopurinol. For tobacco use disorder, he was started on a nicotine patch and received more than 17 minutes of counseling on smoking cessation, along with resources to support quitting. He also has a history of amphetamine and marijuana use and was counseled regarding cessation. No gastrointestinal prophylaxis is needed at this time. Sequential compression devices (SCDs) were used during hospitalization. A cardiac diet was recommended. The patients condition improved during hospitalization; he remained hemodynamically stable and was deemed fit for discharge home with optimal medical therapy. He was advised on healthy lifestyle modifications, including diet and exercise, and instructed to follow up with his primary care provider and cardiology as scheduled. Pt is lying on bed General Appearance: Alert, Oriented X3, Cooperative, Not in acute distress HEENT: Atraumatic, Mucous membranes moist/pink Respiratory: Clear to auscultation, Normal air movement, No added sounds Cardiovascular: Regular rate, Normal S1, Normal S2, No murmurs Abdominal: Active bowel sounds, Soft, no distention, no tenderness Extremities: No edema, Normal pulses, No tenderness/swelling Skin: No Significant rash, except past surgical scars Neuro: Normal speech, sensorimotor deficits none Psych/Mental Status: Mental status NL, Mood NL Nurse was there as sharperone during examination Operations or Procedures ECHO Conclusion lvef 65% normal lv function normal rv function, probable enlarged left atrium enlarged mild no severe valve abnormalities noted ---- Exam: Nuclear Stress Test BMI: 0 Stress Test Details HR Max Heart Rate (APMHR): 163.212284 bpm Target HR (85% APMHR): 138.899090 bpm BP ECG Stress ECG Conclusion lvef 51% inferoseptal infarct and inferior infarct fixed defect noted NM EXAM: Myocardial Perfusion REST/STRESS Imaging Protocol: Rest Tc-99m/Stress Tc-99m 1 day Resting Data Rest SPECT myocardial perfusion imaging was performed in supine position 45 minutes following the intravenous injection of 8.5 mCi of Tc-99m Sestamibi. Time of rest injection: 08:05 Date: 06/28/2024 Time of rest imagin:50 Date: 06/28/2024 Administration Route: IV Administration Site: Right Arm Pharmacologic Stress Pharmacologic stress test was performed by injecting Regadenoson 0.4 mg IV push followed by the intravenous injection of 30.0 mCi of Tc-99m Sestamibi. Time of stress injection: 09:45 Date: 06/28/2024 Time of stress imagin:30 Date: 06/28/2024 Administration Route: IV Administration Site: Right Arm Gated Stress SPECT was performed 60 minutes after stress injection. The images were gated to evaluate regional wall motion and calculate left ventricular ejection fraction. Stress only was performed in the Supine position. Nuclear Conclusion Nuclear Findings: negative for ischemia lvef 51% inferoseptal infarct and inferior infarct fixed defect noted SIGNED BY: JAZLYN GUTIERREZ MD Condition at Discharge: Stable Final Diagnosis/Problems List # Chest pain ruled out ACS # likely Stable angina # HTN # HLD # tobacco abuse disorder/ dependence- nicotine patch # Ex-amphetamine and marijuana use # Gout Discharge Disposition: Home Discharge Instruct/Medications Diet: Consistent carbohydrate, Cardiac 2g Na,low cholest Activity: No Restrictions, As Tolerated Follow Up/Referral: PCP Cardiology Medications: Amlodipine 5 mg daily once oral Lipitor 40 mg daily once oral Aspirin 81 mg daily once oral Nitroglycerin sublingual as needed 3 times daily Resume home medications Discharge Statement: "Patient was advised to return to the ER or call 911 if any headaches, dizziness, shortness of breath, chest pain, abdominal pain, bleeding, fevers, or worsening of medical condition. Patient was counseled about treatment plan, medications, possible side effects, patientverbalized understanding. All questions were answered to the best of my ability. This discharge took greater then 30 minutes in planning, reviewing documentation, counseling the patient, and discussing with other team members." ASSESSMENT ASSESSMENT Assessment # Chest pain ruled out ACS # likely Stable angina # HTN # HLD # tobacco abuse disorder/ dependence- nicotine patch # Ex-amphetamine and marijuana use # Gout HERLINDA BOLANOS RESIDENT June 29, 2024 14:03
[2024-06-29 14:26] VITALS: BP 123/88; PULSE 60; RESP 20; TEMP 97.9; O2SAT 96
== END 2024-06-29 16:12 | disposition home or self-care (01) | DRG 282 ==
LOC: ER 13:54 → OVERFLOW 19:23 → TELE-CENTR 21:36 → CENTRAL 06-29 09:14
PROVIDERS: ADMIT Student in an Organized Health Care Education/Training Program; ATTEND Student in an Organized Health Care Education/Training Program
DX: I21.4 Non-ST elevation (NSTEMI) myocardial infarction (principal); E78.5 Hyperlipidemia, unspecified; I10 Essential (primary) hypertension; M10.9 Gout, unspecified; F17.210 Nicotine dependence, cigarettes, uncomplicated; I20.89 Other forms of angina pectoris; Z71.6 Tobacco abuse counseling; Z79.899 Other long term (current) drug therapy
CPT/HCPCS: 36415; 71046; 78452; 80048; 80053; 80061; 80307; 81001; 83036; 83735; 84443; 84484; 85025; 85610; 85730; 93005; 93306; 96374; 99291; G0378

== ENCOUNTER 2024-07-26 09:15 | Inpatient (IN) | payer OTHER, MEDICAID ==
[~2024-07-26] VITALS: Ht 170.2 cm; Wt 60.0 kg
[~2024-07-26 09:15] MED LIST changes: +ALLO100T PO; +AMLO1TAB22 PO; +ASPI-325 PO; +ATOR20TA50 PO; -DOCU-265 PO; -DOCU-94 PO; -FLUC200T PO; +NITR0.4S29 SL; -POLY335015 PO; +TAMS0.4C39 PO
--- NOTE | 2024-07-26 09:38 | ED.PDOC ---
History of Present Illness HPI Comments 59-year-old male presents with a chief complaint of catatonia s/p methamphetamine use. Patient is non-verbal at this time, not following commands, and is tense/catatonic. Patient was given a liter of IV fluids without relief. Patient unable to express his symptoms at this time. Time Seen by MD: 09:30 Primary Care Provider: KHUSHBU DANIEL Reviewed Notes: Medications, Allergies Allergies: Coded Allergies: NO KNOWN ALLERGIES (Unverified , 12/21/23) Home Meds Active Scripts Nitroglycerin (NTROSTAT SUBLINGUAL) 0.4 Mg Sl, 0.4 MG SL TIDPRN PRN for 30 Days, #90 TAB Prov:HERLINDA BOLANOS RESIDENT 06/29/24 Atorvastatin Calcium (ATORVASTATIN CALCIUM) 20 Mg Tab, 40 MG PO HS for 30 Days, #30 TAB Prov:HERLINDA BOLANOS RESIDENT 06/29/24 Aspirin (Aspirin Low Dose) 81 Mg Tab, 81 MG PO DAILY for 30 Days, #30 TAB Prov:HERLINDA BOLANOS RESIDENT 06/29/24 Reported Medications Tamsulosin Hcl (Tamsulosin Hcl) 0.4 Mg Cap, 0.4 MG PO DAILY for 30 Days, MG 06/27/24 Allopurinol (Allopurinol) 100 Mg Tab, 200 MG PO DAILY for 30 Days, MG 06/27/24 Amlodipine Besylate (Amlodipine Besylate) 5 Mg Tab, 5 MG PO DAILY for 30 Days, MG 06/27/24 Information Source: Emergency Med Personnel Mode of Arrival: EMS Severity: Moderate Timing: Minutes Duration: Since onset 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, 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 Past Medical History PAST MEDICAL HISTORY: Gout, High Lipids, HTN Surgical History: Denies all surgeries Family History Family History: Family hx of Cancer Social History Smoker: Cigarettes Alcohol: Denies ETOH Use Drugs: Methamphetamine Lives In: Home Constitutional: denies: chills, diaphoresis, fatigue, fever, malaise, sweats, weakness, others EENTM: denies: blurred vision, double vision, ear bleeding, ear discharge, ear drainage, ear pain, ear ringing, eye pain, eye redness, hearing loss, mouth pain, mouth swelling, nasal discharge, nose bleeding, nose congestion, nose pain, photophobia, tearing, throat pain, throat swelling, voice changes, others Respiratory: denies: cough, hemoptysis, orthopnea, SOB at rest, shortness of breath, SOB with excertion, stridor, wheezing, others Cardiovascular: denies: chest pain, dizzy spells, diaphoresis, Dyspnea on exertion, edema, irregular heart beat, left arm pain, lightheadedness, palpitations, PND, syncope, others Gastrointestinal: denies: abdomen distended, abdominal pain, blood streaked bowels, constipated, diarrhea, dysphagia, difficulty swallowing, hematemesis, melena, nausea, poor appetite, poor fluid intake, rectal bleeding, rectal pain, vomiting, others Genitourinary: denies: burning, dysuria, flank pain, frequency, hematuria, incontinence, penile discharge, penile sore, pain, testicle pain, testicle swelling, urgency, others Neurological: denies: dizziness, fainting, headache, left sided numbness, left sided weakness, numbness, paresthesia, pre-existing deficit, right sided numbness, right sided weakness, seizure, speech problems, tingling, tremors, weakness, others Musculoskeletal: denies: back pain, gout, joint pain, joint swelling, muscle pain, muscle stiffness, neck pain, others Integumetry: denies: bruises, change in color, change in hair/nails, dryness, laceration, lesions, lumps, rash, wounds, others Allergic/Immunocompromised: denies: Difficulty Healing, Frequent Infections, Hives, Itching, others Hematologic/Lymphatic: denies: anemia, blood clots, easy bleeding, easy bruising, swollen glands, others Endocrine: denies: excessive hunger, excessive sweating, excessive thirst, excessive urination, flushing, intolerance to cold, intolerance to heat, unexplained weight gain, unexplained weight loss, others Psychiatric: reports: others (CATATONIA); denies: anxiety, bipolar disorder, depression, hopeless, panic disorder, schizophrenia, sleepless, suicidal All Other Systems: Reviewed and Negative Physical Exam General Appearance: Mild Distress, Normal, Other (NOT FOLLOWING COMMANDS, CATATONIC/STIFF/TENSE) HEENT: Normal ENT Inspection, Pharynx Normal, TMs Normal Neck: Full Range of Motion, Non-Tender, Normal, Normal Inspection Respiratory: Chest Non-Tender, Lungs Clear, No Accessory Muscle Use, No Respiratory Distress, Normal Breath Sounds Cardiovascular: No Edema, No JVD, No Murmur, No Gallop, Normal Peripheral Pulses, Regular Rate/Rhythm Breast Exam: Deferred Gastrointestinal: No Organomegaly, Non Tender, No Pulsatile Mass, Normal Bowel Sounds, Soft Genitalia: Deferred Pelvic: Deferred Rectal: Deferred Extremities: No calf tenderness, Normal capillary refill, Normal inspection, Normal range of motion, Non-tender, No pedal edema Musculoskeletal : Apperance: Normal Neurologic: Other (Patient is moving all extremities. Patient is not following commands.) Cerebellar Function: Unable to Test Reflexes: NOT DONE Skin: Dry, Normal Color, Warm Lymphatic: No Adenopathy Was a procedure done? Was a procedure done?: No Differential Dx Considerations may include: Polysubstance abuse, rhabdomyolysis, dehydration, viral syndrome X-Ray, Labs, Meds, VS Vital Signs Date Time Temp Pulse Resp B/P (MAP) Pulse Ox O2 Delivery O2 Flow Rate FiO2 07/26/24 12:38 98.0 86 18 150/68 (95) 96 98.0 07/26/24 09:39 99.0 108 12 182/109 (133) 99 99.0 Lab Test 07/26/24 11:28 Range/Units White Blood Count 10.8 4.4-10.8 10^3/uL Red Blood Count 4.02 L 4.5-5.90 10^6/uL Hemoglobin 13.1 L 13.5-17.5 g/dL Hematocrit 37.5 L 41.0-53.0 % Mean Corpuscular Volume 93.3 80.0-100.0 fL Mean Corpuscular Hemoglobin 32.5 H 28.0-32.0 pg Mean Corpuscular Hemoglobin Concent 34.8 32.0-36.0 g/dL Red Cell Distribution Width 13.6 11.8-14.3 % Platelet Count 249 140-450 10^3/uL Mean Platelet Volume 7.5 6.9-10.8 fL Neutrophils (%) (Auto) 83.8 H 37.0-80.0 % Lymphocytes (%) (Auto) 9.2 L 10.0-50.0 % Monocytes (%) (Auto) 6.3 0.0-12.0 % Eosinophils (%) (Auto) 0.5 0.0-7.0 % Basophils (%) (Auto) 0.2 0.0-2.0 % Neutrophils # (Auto) 9.0 H 1.6-8.6 10 ^3/uL Lymphocytes # (Auto) 1.0 0.4-5.4 10 ^3/uL Monocytes # (Auto) 0.7 0-1.3 10 ^3/uL Eosinophils # (Auto) 0.1 0-0.8 10 ^3/uL Basophils # (Auto) 0 0-0.2 10 ^3/uL Nucleated Red Blood Cells 0.0 % Sodium Level 148 H 136-145 mmol/L Potassium Level 3.7 3.5-5.1 mmol/L Chloride Level 113 H 98-107 mmol/L Carbon Dioxide Level 27 20-31 mmol/L Anion Gap 8 5-15 Blood Urea Nitrogen 15 9-23 mg/dL Creatinine 0.77 0.700-1.30 mg/dL Glomerular Filtration Rate Calc 104 >90 mL/min BUN/Creatinine Ratio 19.5 10.0-20.0 Serum Glucose 98 74-106 mg/dL Lactic Acid Level 0.7 0.4-2.0 mmol/L Calcium Level 9.6 8.7-10.4 mg/dL Creatine Kinase 2530 H 46-171 U/L Current Medications Medications (Trade) Dose Ordered Sig/Niru Route Start Time Stop Time Status Last Admin Diphenhydramine HCl (Benadryl Injection) 50 mg ONCE ONCE IV 07/26/24 09:45 07/26/24 09:46 DC 07/26/24 10:14 Sodium Chloride 1,000 ml @ 1,000 mls/hr Q1H ONCE IV 07/26/24 09:45 07/26/24 10:44 DC 07/26/24 10:06 Sodium Chloride 1,000 ml @ 1,000 mls/hr Q1H ONCE IV 07/26/24 11:15 07/26/24 12:14 DC 07/26/24 11:31 Sodium Chloride 1,000 ml @ 1,000 mls/hr Q1H ONCE IV 07/26/24 13:00 07/26/24 13:59 07/26/24 13:10 Time of 1ST Reevaluation: 10:00 Reevaluation 1ST: Unchanged Patient Education/Counseling: Pt Unresponsive Family Education/Counseling: No Family Present Sepsis Sepsis Reasesment Focused Exam Orders: Laboratory Tests 07/26/24 11:28: Lactic Acid Level 0.7 Departure 1 Departure Time of Disposition: 13:30 (Patient with altered mental status likely secondary to witnessed drug consumption. Patient found to be in rhabdo. We will hydrate patient admit patient for further workup and further observation) Impression: Primary Impression: Rhabdomyolysis Qualified Codes: M62.82 - Rhabdomyolysis Additional Impressions: Acute metabolic encephalopathy Polysubstance abuse Disposition: ADMITTED INPATIENT Admit to: Med Surg Condition: Guarded Critical Care Note Critical Care Time?: Yes Critical care comment: Altered mental status Authorized and Performed by: Nuris Zazueta MD Total critical care time: Approximately 44 minutes Due to a high probability of clinically significant, life threatening deterioration, the patient required my highest level of preparedness to intervene emergently and I personally spent this critical care time directly and personally managing the patient. This critical care time included obtaining a history; examining the patient; pulse oximetry; ordering and review of studies; arranging urgent treatment with development of a management plan; evaluation of patient's response to treatment; frequent reassessment; and, discussions with other providers. This critical care time was performed to assess and manage the high probability of imminent, life-threatening deterioration that could result in multi-organ failure. It was exclusive of separately billable procedures and treating other patients and teaching time. Please see my other sections and the rest of the note for further information on patient assessment and treatment. Stability Stability form required: No Heart Score Heart Score: Heart Score Response (Comments) Value History N/A 0 EKG N/A 0 Age N/A 0 Risk Factors N/A 0 Troponin N/A 0 Total 0 I personally scribed for NURIS ZAZUETA MD ([email or web address]) on 07/26/24 at 09:38. Electronically submitted by Ry Rojas ([email or web address]). NURIS ZAZUETA MD Jul 26, 2024 09:38
[2024-07-26] MEDS: diphenhdrAMINE HCL 50 MG/1 ML VL ONE (09:39)
[2024-07-26] MEDS: SODIUM CHLORIDE 0.9% 1,000 ML IV ONE ×3 (10:06→13:10)
[2024-07-26] MEDS: diphenhdrAMINE HCL 50 MG/1 ML VL IV ONE (10:14)
[2024-07-26] MEDS: MIDAZOLAM HCL 5 MG/ML-1ML VIAL IV ONE (11:31)
[2024-07-26 11:42] LABS: Basophils # (auto) 0 10 ^3/uL (0-0.2); Basophils % (auto) 0.2 % (0.0-2.0); Eosinophils # (auto) 0.1 10 ^3/uL (0-0.8); Eosinophils % (auto) 0.5 % (0.0-7.0); Hematocrit 37.5 % (41.0-53.0); Hemoglobin 13.1 g/dL (13.5-17.5); Lymphocytes % (auto) 9.2 % (10.0-50.0); Mean Corpuscular Hemoglobin 32.5 pg (28.0-32.0); Mean Corpuscular Hgb Conc. 34.8 g/dL (32.0-36.0); Mean Corpuscular Volume 93.3 fL (80.0-100.0); Monocytes # (auto) 0.7 10 ^3/uL (0-1.3); Monocytes % (auto) 6.3 % (0.0-12.0); Neutrophils % (auto) 83.8 % (37.0-80.0); Platelet Count (auto) 249 10^3/uL (140-450); Red Blood Cells 4.02 10^6/uL (4.5-5.90); Red Cell Distribution Width 13.6 % (11.8-14.3); White Blood Cell 10.8 10^3/uL (4.4-10.8)
[2024-07-26 11:53] LABS: Potassium 3.7 mmol/L (3.5-5.1)
[2024-07-26 11:54] LABS: Anion Gap 8 (5-15); Calcium 9.6 mg/dL (8.7-10.4); Carbon Dioxide 27 mmol/L (20-31)
[2024-07-26 11:55] LABS: Chloride 113 mmol/L (98-107); Sodium 148 mmol/L (136-145)
[2024-07-26 11:59] LABS: BUN/Creatinine Ratio 19.5 (10.0-20.0); Blood Urea Nitrogen 15 mg/dL (9-23); Glucose 98 mg/dL (74-106)
[2024-07-26 12:12] LABS: Creatine Kinase IFCC 2530 U/L (46-171)
[2024-07-26 12:38] VITALS: TEMP 98
--- NOTE | 2024-07-26 13:04 | DVH ---
EXAM: CT HEAD WITHOUT CONTRAST HISTORY: ams COMPARISON: CT HEAD WITHOUT CONTRAST on DOS: 12/21/23 TECHNIQUE: Noncontrast axial CT images of the head were performed. Sagittal and coronal reformatted i mages were obtained. This CT exam was performed using 1 or more of the following dose reduction techn iques: Automated exposure control, adjustment of the mA and/or kv according to patient size, or the u se of iterative reconstruction techniques. Radiation Dose: CTDI volume is 55.4 mGy. Dose-length product is 998.98 mGy*cm FINDINGS: There is mild global brain atrophy. No intracranial hemorrhage, mass, midline shift, hydrocephalus, o r evidence of acute large vessel infarct. 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 Cavum septum pel lucidum and cavum septum vergae incidentally noted. There is mild mucosal thickening of the bilateral maxillary and ethmoid sinuses. The bilateral mastoid air cells and middle ear spaces are clear. No c ranial fracture or scalp edema. IMPRESSION: No acute intracranial process.
[2024-07-26 15:12] VITALS: BP 142/70; PULSE 84; RESP 18; O2SAT 96
[2024-07-26] MEDS ORDERED: DOCUSATE SOD 100 MG CAP PO PRN (15:30)
[2024-07-26] MEDS ORDERED: ACETAMINOPHEN 325 MG TAB PO PRN (15:30)
[2024-07-26] MEDS ORDERED: ONDANSETRON HCL 4 MG/2 ML VIAL IV PRN (15:30)
[2024-07-26] MEDS ORDERED: hydrALAZINE HCL 20 MG/ML VL IV PRN (15:30)
[2024-07-26] MEDS ORDERED: LACTATED RINGER'S 1,000 ML IV SCH (15:30)
[2024-07-26] MEDS ORDERED: HYDROcodone-ACET 5/325MG TAB PO PRN (15:30)
[2024-07-26] MEDS ORDERED: MIDAZOLAM HCL 5 MG/ML-1ML VIAL IV ONE ×2 (16:15→18:30)
--- NOTE | 2024-07-26 16:18 | DVHHP2 ---
History of Present Illness Reason for Visit: Rhabdomyolysis History of Present Illness The patient is a 59-year-old male with past medical history of GERD, hypertension, and hyperlipidemia who presented to [facility] ED with complaint of catatonia status post methamphetamine use. Patient is non-verbal at this time, not following commands, and is tense/catatonic. Patient was seen and evaluated in the ED, laboratory data shows WBC 10.8, platelets 249, sodium 148, potassium 3.7, BUN 15, creatinine 0.77, glucose 98, calcium 9.6, CK 2530, blood pressure 148/70, heart rate 84, temperature 98.0 F, O2 saturation 96% on room air. Head CT showed no acute intracranial process. Patient was found to have rhabdomyolysis, started on IV fluid, please see medication orders section in the computer. On my assessment, patient remains nonverbal, no dizziness, no diaphoresis, no shortness of breath, no diarrhea, no nausea, no vomiting, no fever, no chills. Patient was admitted for further evaluation and medical management. Past Medical History Gout, High Lipids, HTN Past Surgical History Denies all surgeries Family History Reviewed, noncontributory to the management of this case. Past Social History The patient lives at home, smokes cigarettes, denies alcohol use, uses methamphetamine Review of Systems Constitutional: Yes: Weakness; No: Fever, Chills, Sweats, Malaise, Other Eyes: No: Pain, Vision change, Conjunctivae inflammation, Eyelid inflammation, Other, Redness ENT: No: Ear pain, Ear discharge, Nose pain, Nose discharge, Nose congestion, Mouth pain, Mouth swelling, Throat pain, Throat swelling, Other Respiratory: No: Cough, Dry, Shortness of breath, SOB with excertion, Wheezing, Hemoptysis, Pleuritic Pain, Sputum, Wheezing, Other Cardiovascular: No: Chest Pain, Palpitations, Orthopnea, Paroxysmal Noc. Dyspnea, Edema, Lt Headedness, Other Gastrointestinal: No: Nausea, Vomiting, Abdominal Pain, Diarrhea, Constipation, Melena, Hematochezia, Other Genitourinary: No Dysuria, No Frequency, No Incontinence, No Hematuria, No Retention, No Other Musculoskeletal: No: other, neck pain, shoulder pain, arm pain, back pain, hand pain, leg pain, foot pain Skin: No: Rash, Lesions, Jaundice, Bruising, Other Neurological: No: Weakness, Numbness, Incoordination, Change in speech, Confusion, Seizures, Other Other Psychiatric: reports: others (CATATONIA); denies: anxiety, bipolar disorder, depression, hopeless, panic disorder, schizophrenia, sleepless, suicidal Allergies: Coded Allergies: NO KNOWN ALLERGIES (Unverified , 12/21/23) Medications Current Medications Medications Dose Ordered Sig/Niru Route Start Time Stop Time Status Last Admin Dose Admin Tamsulosin HCl 0.4 mg QPM PO 07/26/24 18:00 UNV Amlodipine Besylate 5 mg DAILY PO 07/27/24 10:00 UNV Hydralazine HCl 10 mg Q6HP PRN IV 07/26/24 15:30 UNV Allopurinol 100 mg DAILY PO 07/27/24 10:00 UNV Lactated Ringer's 1,000 ml @ 125 mls/hr Q8H IV 07/26/24 15:30 UNV Metoprolol Tartrate 25 mg BID PO 07/26/24 22:00 UNV Acetaminophen/ Hydrocodone Bitart 1 tab Q4HP PRN PO 07/26/24 15:30 UNV Ondansetron HCl 4 mg Q4HP PRN IV 07/26/24 15:30 UNV Docusate Sodium 100 mg BIDPRN PRN PO 07/26/24 15:30 UNV Acetaminophen 650 mg Q6HP PRN PO 07/26/24 15:30 UNV Exam Vital Signs Vital Signs Date Time Temp Pulse Resp B/P (MAP) Pulse Ox O2 Delivery O2 Flow Rate FiO2 07/26/24 15:12 84 18 142/70 (94) 96 07/26/24 12:38 98.0 98.0 General Appearance: Alert, Cooperative, No acute distress, Other (Catatonia) HEENT: Atraumatic, PERRLA, EOMI, Mucous membr. moist/pink Respiratory: Clear to auscultation, Normal air movement Cardiovascular: Regular rate, Normal S1, Normal S2, No murmurs Abdominal: Normal bowel sounds, Soft, No tenderness, No hepatospenomegaly, No masses Extremities: No clubbing, No cyanosis, No edema, Normal pulses, No tenderness/swelling Skin: No rashes, No breakdown, No significant lesion Neuro: Normal tone, Reflexes 2+, Other (Generalized weakness) Psych/Mental Status: Mental status NL, Mood NL Labs/Xrays Labs Test 07/26/24 11:28 Range/Units White Blood Count 10.8 4.4-10.8 10^3/uL Red Blood Count 4.02 L 4.5-5.90 10^6/uL Hemoglobin 13.1 L 13.5-17.5 g/dL Hematocrit 37.5 L 41.0-53.0 % Mean Corpuscular Volume 93.3 80.0-100.0 fL Mean Corpuscular Hemoglobin 32.5 H 28.0-32.0 pg Mean Corpuscular Hemoglobin Concent 34.8 32.0-36.0 g/dL Red Cell Distribution Width 13.6 11.8-14.3 % Platelet Count 249 140-450 10^3/uL Mean Platelet Volume 7.5 6.9-10.8 fL Neutrophils (%) (Auto) 83.8 H 37.0-80.0 % Lymphocytes (%) (Auto) 9.2 L 10.0-50.0 % Monocytes (%) (Auto) 6.3 0.0-12.0 % Eosinophils (%) (Auto) 0.5 0.0-7.0 % Basophils (%) (Auto) 0.2 0.0-2.0 % Neutrophils # (Auto) 9.0 H 1.6-8.6 10 ^3/uL Lymphocytes # (Auto) 1.0 0.4-5.4 10 ^3/uL Monocytes # (Auto) 0.7 0-1.3 10 ^3/uL Eosinophils # (Auto) 0.1 0-0.8 10 ^3/uL Basophils # (Auto) 0 0-0.2 10 ^3/uL Nucleated Red Blood Cells 0.0 % Sodium Level 148 H 136-145 mmol/L Potassium Level 3.7 3.5-5.1 mmol/L Chloride Level 113 H 98-107 mmol/L Carbon Dioxide Level 27 20-31 mmol/L Anion Gap 8 5-15 Blood Urea Nitrogen 15 9-23 mg/dL Creatinine 0.77 0.700-1.30 mg/dL Glomerular Filtration Rate Calc 104 >90 mL/min BUN/Creatinine Ratio 19.5 10.0-20.0 Serum Glucose 98 74-106 mg/dL Lactic Acid Level 0.7 0.4-2.0 mmol/L Calcium Level 9.6 8.7-10.4 mg/dL Creatine Kinase 2530 H 46-171 U/L PATIENT: JERRY TORRESCCT: [id number] UNIT: [id number] : 1965 LOC: ER ROOM / BED: / AGE / SEX: 59 / M ADM STATUS: REG ER SERVICE 1113 ORDERING PHYSICIAN: NURIS ZAZUETA MD PROCEDURE(s): HWOCT - HEAD WITHOUT CONTRAST REASON: ams ORDER NUMBER(s): [id number], ACCESSION NUMBER(s): [id number] EXAM: CT HEAD WITHOUT CONTRAST HISTORY: ams COMPARISON: CT HEAD WITHOUT CONTRAST on DOS: 12/21/23 TECHNIQUE: Noncontrast axial CT images of the head were performed. Sagittal and coronal reformatted images were obtained. This CT exam was performed using 1 or more of the following dose reduction techniques: Automated exposure control, adjustment of the mA and/or kv according to patient size, or the use of itera tive reconstruction techniques. Radiation Dose: CTDI volume is 55.4 mGy. Dose-length product is 998.98 mGy*cm FINDINGS: There is mild global brain atrophy. No intracranial hemorrhage, mass, midline shift, hydrocephalus, or evidence of acute large vessel infarct. 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 Cavum septum pellucidum and cavum septum vergae incidentally noted. There is mild mucosal thickening of the bilateral maxillary and ethmoid sinuses. The bilateral mastoid air cells and middle ear spaces are clear. No cranial fracture or scalp edema. IMPRESSION: No acute intracranial process. Assessment/Plan Assessment/Plan Rhabdomyolysis Polysubstance abuse Catatonia Generalized weakness Acute metabolic encephalopathy Plan 1. Admit to telemetry unit 2. Breathing treatment 3. Pain control management 4. Management of fluids and electrolytes 5. Consultation for hospitalist 6. Diagnostic tests head CT 7. DVT prophylaxis-on SCDs 8. Repeat labs CBC, CMP in a.m. 9. Continue with current medical management 10. Treatment plan discussed with patient and RN. Patient verbalized understanding. Plan discussed with: Patient, Other (RN) My Orders Orders - DEANDRA KILPATRICK DNP Procedure Category Date Status Time Tamsulosin PHA 07/26/24 Logged Hydrochloride (Flomax) 18:00 Amlodipine Tablet PHA 07/27/24 Logged (Norvasc Tablet) 10:00 Hydralazine Injection PHA 07/26/24 Logged (Apresoline Inject 15:30 Allopurinol Tablet PHA 07/27/24 Logged (Zyloprim Tablet) 10:00 Lactated Ringer's PHA 07/26/24 Logged 15:30 Metoprolol Tartrate PHA 07/26/24 Logged Tablet (Lopressor Ta 22:00 Allergies MATTIE 07/26/24 In Process 15:30 Code Status CODE 07/26/24 Transmitted 15:30 Oxygen Per Hour RT 07/26/24 Transmitted 15:30 Hydrocodone-Acet PHA 07/26/24 Logged 5/325mg Tab ([place] 15:30 Ondansetron Hcl PHA 07/26/24 Logged (Zofran) 15:30 Docusate Sodium PHA 07/26/24 Logged Capsule (Colace 15:30 Fall Risk Precautions MATTIE 07/26/[address] 15:30 Complete Blood Count LAB 07/27/24 Verified 04:00 Comprehensive LAB 07/27/24 Verified Metabolic Panel 04:00 Cardiac DIET 07/26/24 Transmitted Diet-2gna,Lofat,Lochol Dinner Condition: Serious MATTIE 07/26/24 In Process 15:30 Acetaminophen Tablet PHA 07/26/24 Logged (Tylenol Tablet) 15:30 Maintain Bed Rest MATTIE 07/26/24 In Process 15:30 Sequential MATTIE 07/26/24 In Process Compression Device Problem List: (1) Rhabdomyolysis (2) Polysubstance abuse (3) Catatonia (4) Generalized weakness (5) Acute metabolic encephalopathy Date of Service: Jul 26, 2024 Billing Provider: DEANDRA KILPATRICK DNP Common Visit Codes: 40720-[id number] INP/OBS CARE (HIGH) DEANDRA KILPATRICK DNP Jul 26, 2024 16:18
[2024-07-26] MEDS ORDERED: MORPHINE SULFATE INJ 2 MG/ml SYRG IV PRN (16:30)
[2024-07-26] MEDS ORDERED: NITROGLYCERIN 0.4 MG SL TAB SL PRN (16:30)
[2024-07-26] MEDS ORDERED: TAMSULOSIN HYDROCHLORIDE 0.4 MG CAP PO SCH (18:00)
[2024-07-26] MEDS ORDERED: METOPROLOL TARTRATE 25 MG TAB PO SCH (22:00)
[2024-07-27] MEDS ORDERED: ALLOPURINOL 100 MG TAB PO SCH (10:00)
[2024-07-27] MEDS ORDERED: amLODIPine BESYLATE 5 MG TAB PO SCH (10:00)
== END 2024-07-26 19:33 | disposition left against medical advice (07) | DRG 557 ==
LOC: EDUNIT# 09:15 → EDBD 09:15 → ER 09:15 → OVERFLOW 16:18
PROVIDERS: ADMIT Nurse Practitioner Family; ATTEND Nurse Practitioner Family
DX: M62.82 Rhabdomyolysis (principal); G93.41 Metabolic encephalopathy; F06.1 Catatonic disorder due to known physiological condition; F15.10 Other stimulant abuse, uncomplicated; I10 Essential (primary) hypertension; E78.5 Hyperlipidemia, unspecified; M10.9 Gout, unspecified; Z53.29 Procedure and treatment not carried out because of patient's decision for other reasons; K21.9 Gastro-esophageal reflux disease without esophagitis; F17.210 Nicotine dependence, cigarettes, uncomplicated; Z79.82 Long term (current) use of aspirin; Z79.899 Other long term (current) drug therapy
CPT/HCPCS: 36415; 70450; 80048; 82550; 83605; 85025; 96361; 96374; 99291; G0378

== ENCOUNTER 2024-11-21 18:50 | Emergency (ER) | payer OTHER, MEDICAID ==
[~2024-11-21] VITALS: Ht 167.6 cm; Wt 68.6 kg
--- NOTE | 2024-11-21 19:39 | ED.PDOC ---
History of Present Illness HPI Comments This is a 59 year-old male who presents to the ED for wound check of the bilateral lower extremities. Patient has no other complaints or modifying factors at this time. Patient otherwise denies further associated symptoms of SOB, chest pain, fever, chills, weakness, or fatigue. Chief Complaint: Wound Check Time Seen by MD: 19:44 Primary Care Provider: UNKNOWN Reviewed Notes: Medications, Allergies Allergies: Coded Allergies: NO KNOWN ALLERGIES (Unverified , 12/21/23) Home Meds Active Scripts Nitroglycerin (NTROSTAT SUBLINGUAL) 0.4 Mg Sl, 0.4 MG SL TIDPRN PRN for 30 Days, #90 TAB Prov:HERLINDA BOLANOS RESIDENT 06/29/24 Atorvastatin Calcium (ATORVASTATIN CALCIUM) 20 Mg Tab, 40 MG PO HS for 30 Days, #30 TAB Prov:HERLINDA BOLANOS RESIDENT 06/29/24 Aspirin (Aspirin Low Dose) 81 Mg Tab, 81 MG PO DAILY for 30 Days, #30 TAB Prov:HERLINDA BOLANOS RESIDENT 06/29/24 Reported Medications Tamsulosin Hcl (Tamsulosin Hcl) 0.4 Mg Cap, 0.4 MG PO DAILY for 30 Days, MG 06/27/24 Allopurinol (Allopurinol) 100 Mg Tab, 200 MG PO DAILY for 30 Days, MG 06/27/24 Amlodipine Besylate (Amlodipine Besylate) 5 Mg Tab, 5 MG PO DAILY for 30 Days, MG 06/27/24 Information Source: Patient Mode of Arrival: Ambulatory Severity: Moderate Past Medical History PAST MEDICAL HISTORY: Gout, High Lipids, HTN Family History Family History: Family hx of Cancer Social History Smoker: Cigarettes Alcohol: Denies ETOH Use Drugs: Methamphetamine Lives In: Homeless Constitutional: denies: chills, diaphoresis, fatigue, fever, malaise, sweats, weakness, others EENTM: denies: blurred vision, double vision, ear bleeding, ear discharge, ear drainage, ear pain, ear ringing, eye pain, eye redness, hearing loss, mouth pain, mouth swelling, nasal discharge, nose bleeding, nose congestion, nose pain, photophobia, tearing, throat pain, throat swelling, voice changes, others Respiratory: denies: cough, hemoptysis, orthopnea, SOB at rest, shortness of breath, SOB with excertion, stridor, wheezing, others Cardiovascular: denies: chest pain, dizzy spells, diaphoresis, Dyspnea on exertion, edema, irregular heart beat, left arm pain, lightheadedness, palpitations, PND, syncope, others Gastrointestinal: denies: abdomen distended, abdominal pain, blood streaked bowels, constipated, diarrhea, dysphagia, difficulty swallowing, hematemesis, melena, nausea, poor appetite, poor fluid intake, rectal bleeding, rectal pain, vomiting, others Genitourinary: denies: burning, dysuria, flank pain, frequency, hematuria, incontinence, penile discharge, penile sore, pain, testicle pain, testicle swelling, urgency, others Neurological: denies: dizziness, fainting, headache, left sided numbness, left sided weakness, numbness, paresthesia, pre-existing deficit, right sided numbness, right sided weakness, seizure, speech problems, tingling, tremors, weakness, others Musculoskeletal: reports: joint pain, joint swelling; denies: back pain, gout, muscle pain, muscle stiffness, neck pain, others Integumetry: denies: bruises, change in color, change in hair/nails, dryness, laceration, lesions, lumps, rash, wounds, others Allergic/Immunocompromised: denies: Difficulty Healing, Frequent Infections, Hives, Itching, others Hematologic/Lymphatic: denies: anemia, blood clots, easy bleeding, easy bruising, swollen glands, others Endocrine: denies: excessive hunger, excessive sweating, excessive thirst, excessive urination, flushing, intolerance to cold, intolerance to heat, unexplained weight gain, unexplained weight loss, others Psychiatric: denies: anxiety, bipolar disorder, depression, hopeless, panic disorder, schizophrenia, sleepless, suicidal, others All Other Systems: Reviewed and Negative Physical Exam General Appearance: No Apparent Distress, Normal HEENT: Pharynx Normal Neck: Full Range of Motion, Non-Tender Respiratory: Lungs Clear, No Respiratory Distress, Normal Breath Sounds Cardiovascular: No Murmur, Normal Peripheral Pulses, Regular Rate/Rhythm Breast Exam: Deferred Gastrointestinal: Non Tender, Soft Genitalia: Deferred Pelvic: Deferred Rectal: Deferred Extremities: No calf tenderness, Normal capillary refill, Normal range of motion, No pedal edema Musculoskeletal : Apperance: Normal Neurologic: Alert, No Motor Deficits, Normal Affect, Normal Mood, No Sensory Deficits Cerebellar Function: Normal Reflexes: NOT DONE Skin: Dry, Normal Color, Warm, Wounds (Superficial abrasions to left foot dorsum aspect and toes as long as right foot dorsum aspect in Achilles heel drainage trace erythema trace edema without streaking strength sensory motion intact positive pedal pulse) Lymphatic: No Adenopathy Was a procedure done? Was a procedure done?: No Differential Dx Considerations may include: Wound Check X-Ray, Labs, Meds, VS Vital Signs Date Time Temp Pulse Resp B/P (MAP) Pulse Ox O2 Delivery O2 Flow Rate FiO2 11/21/24 18:54 97.0 94 18 121/98 97 97.0 Time of 1ST Reevaluation: 20:25 Reevaluation 1ST: Unchanged Time of 2ND Reevaluation: 19:57 Reevaluation 2ND: Improved Patient Education/Counseling: Diagnosis, Treatment, Need For Follow Up Family Education/Counseling: No Family Present SEPSIS Sepsis Screen Date sepsis recognized/suspect: Nov 21, 2024 Time Sepsis recognized/suspect: 1855 Recent Procedure: No (T) On Antibiotic Therapy: No Respiratory Rate >20: No Heart Rate >90: No Temp<36 C (96.8 F) or >38.3 C: No SBP <90 or MAP <65 mmHG: No New Acute Mental Status Change: No Is the patient on CPAP, BIPAP,: Yes Physician Orders Hydrocodone-Acet 10/325mg Tab ([place] 10/ (11/21/24 20:00) Amoxicillin/Clavulanate Tablet (Augmenti (11/21/24 20:00) Vital Signs Date Time Temp Pulse Resp B/P (MAP) Pulse Ox O2 Delivery O2 Flow Rate FiO2 11/21/24 18:54 97.0 94 18 121/98 97 97.0 Departure 1 Departure Time of Disposition: 19:54 Impression: Primary Impression: Wound infection Disposition: HOME / SELF CARE / HOMELESS Condition: Stable e-Prescriptions Amoxicillin & Pot Clavulanate (AUGMENTIN TABLET) 875 Mg Tb 875 MG PO BID for 7 Days, #14 TAB Prov: RAGHU FERRER 11/21/24 Ibuprofen (Ibuprofen) 800 Mg Tab 800 MG PO Q8HP PRN for 7 Days, #21 TAB Prov: RAGHU FERRER 11/21/24 Discharged With: Self Critical Care Note Critical Care Time?: No Stability Stability form required: No Heart Score Heart Score: Heart Score Response (Comments) Value History N/A 0 EKG N/A 0 Age N/A 0 Risk Factors N/A 0 Troponin N/A 0 Total 0 I personally scribed for ER ([email or web address]) on 11/21/24 at 19:39. Electronically submitted by Hali Crocker ([employer]). I personally scribed for ER ([email or web address]) on 11/21/24 at 19:50. Electronically submitted by Hali Crocker ([employer]). ER Nov 21, 2024 19:39 RAGHU FERRER [employer] Nov 21, 2024 19:59
[2024-11-21] MEDS ORDERED: AUG875T PO (19:57)
[2024-11-21] MEDS ORDERED: IBUP-1456 PO (19:57)
[2024-11-21] MEDS: AMOXICILLIN/CLAVUL 875 MG TAB PO ONE (20:03)
[2024-11-21 20:04] VITALS: BP 123/86; PULSE 79; RESP 18; TEMP 98; O2SAT 98
[2024-11-21] MEDS: HYDROcodone-ACET 10/325MG TAB PO ONE (20:04)
== END 2024-11-21 20:17 | disposition home or self-care (01) ==
LOC: ER 18:50
DX: L08.9 Local infection of the skin and subcutaneous tissue, unspecified (principal); I10 Essential (primary) hypertension; F17.210 Nicotine dependence, cigarettes, uncomplicated; Z79.899 Other long term (current) drug therapy